=== PATIENT | male | born 1950 | race Caucasian/White ===

== ENCOUNTER 2017-04-17 15:15 | Emergency (ER) | payer OTHER ==
[~2017-04-17] VITALS: Ht 177.8 cm; Wt 87.0 kg
[~2017-04-17 15:15] MED LIST: CO Q100C9 PO; HYDR-3129 PO; IBUP400 PO; LORA1TAB PO; METH750T2 PO; METO25 PO; MIRT30TA PO; MULT-65 PO; ONDA4TAB7 PO; OYST500T77 PO; PRIL40CA PO; PROZ40CA PO; VITA10002 PO; ZOLP10TA3 PO; ZYRT10TA12 PO
[2017-04-17 15:17] VITALS: BP 143/93; PULSE 78; RESP 20; TEMP 100; O2SAT 96
--- NOTE | 2017-04-17 15:34 | PD ---
Physical Exam Date Seen by Provider: Apr 17, 2017 Time Seen by Provider: 15:31 Narrative 66-year-old male presents to the emergency Department with "gallbladder attack". Patient saw Dr. Henriquez yesterday, as is scheduled for surgery May 06. Patient states he is scheduled for endoscopy as well for esophageal stricture with Dr. Miller. Patient now having nausea, vomiting, fever, chills, and pain from the right upper quadrant radiating through to the back. Patient has had diarrhea but denies urinary symptoms. Patient states pain is 9-10 out of 10. Patient reports some dark tarry diarrhea last evening. Vital signs stable. Patient awaiting med bed placement. Data Data Last Documented VS Vital Signs Date Time Temp Pulse Resp B/P (MAP) Pulse Ox O2 Delivery O2 Flow Rate FiO2 04/17/17 15:17 100.0 78 20 143/93 (110) 96 Room Air [facility] Medical Record Reviewed: Yes Supervised Visit with HUGO: Yes Condition: Stable Dennys Beckham Apr 17, 2017 15:34
[2017-04-17] MEDS ORDERED: SODIUM CHLOR 0.9% 1000 ML INJ 1,000 ML IV SCH (16:28)
[2017-04-17] MEDS ORDERED: PIPERACIL-TAZO 3.375 GM PREMIX 50 ML IV ONE (16:30)
[2017-04-17] MEDS ORDERED: MORPHINE SULFATE 4 MG/ML INJ IV PUSH ONE ×2 (16:30→18:45)
[2017-04-17] MEDS ORDERED: ONDANSETRON HCL 4 MG/2 ML VIAL IVP ONE (16:30)
[2017-04-17] MEDS ORDERED: SODIUM CHLORIDE 0.9% FLUSH 10 ML FLUSH IV FLUSH PRN (16:30)
[2017-04-17] MEDS ORDERED: OMEP40CA2 PO (16:33)
[2017-04-17] MEDS ORDERED: ZOLP10TA3 PO (16:33)
[2017-04-17] MEDS ORDERED: HYDR-3580 PO (16:33)
[2017-04-17] MEDS ORDERED: MIRT30TA PO (16:33)
[2017-04-17] MEDS ORDERED: ONDA1TAB16 PO (16:33)
[2017-04-17] MEDS ORDERED: PROZ40CA PO (16:33)
[2017-04-17] MEDS ORDERED: LORA1TAB12 PO (16:33)
[2017-04-17] MEDS ORDERED: KETOROLAC TROMETHAMINE 30 MG/ML (IVP) VIAL IV PUSH ONE (16:45)
--- NOTE | 2017-04-17 16:54 | PD ---
Physical Exam Date Seen by Provider: Apr 17, 2017 Narrative Patient with known gallbladder disease presents with fever increased right upper quadrant pain. GENERAL: Patient is awake and alert and does not appear to be in any acute distress. SKIN: Skin is warm and dry with no rash or lesions. HEAD: Normocephalic/atraumatic. EYES: Pupils are equal. Extraocular movements are intact. ENT: Mucous membranes are moist. NECK: Full range of motion without pain. CARDIOVASCULAR: Regular rate and rhythm. RESPIRATORY: Nonlabored. ABDOMEN: Abdomen is soft with right upper quadrant tenderness. No guarding or rebound. MUSCULOSKELETAL: Atraumatic. NEUROLOGICAL: Nonfocal. PSYCHIATRIC: Appropriate mood and affect. Data Data Last Documented VS Vital Signs Date Time Temp Pulse Resp B/P (MAP) Pulse Ox O2 Delivery O2 Flow Rate FiO2 04/17/17 15:17 100.0 78 20 143/93 (110) 96 Room Air Orders Orders Complete Blood Count With Diff (04/17/17 16:28) Comprehensive Metabolic Panel (04/17/17 16:28) Lipase (04/17/17 16:28) Lactic Acid (04/17/17 16:28) Iv Access Insert/Monitor (04/17/17 16:28) Morphine Inj (Morphine Inj) (04/17/17 16:30) Ondansetron Inj (Zofran Inj) (04/17/17 16:30) Sodium Chlor 0.9% 1000 Ml Inj (Ns 1000 M (04/17/17 16:28) Sodium Chloride 0.9% Flush (Ns Flush) (04/17/17 16:30) Piperacil-Tazo 3.375 Gm Premix (Zosyn 3. (04/17/17 16:30) Blood Culture (04/17/17 16:34) Ct Abd/Pel W Iv Contrast(Rout) (04/17/17 ) Act Partial Throm Time (Ptt) (04/17/17 16:34) Prothrombin Time / Inr (Pt) (04/17/17 16:34) Ketorolac Inj (Toradol Inj) (04/17/17 16:45) MDM Supervised Visit with HUGO: Yes Narrative Course I, Dr. Ordonez, have reviewed the advance practice practitioner's documentation and am in agreement, met with the patient face to face, made the diagnosis, and the medical decision making was done by me. *My assessment and Findings: This is a 66-year-old man with known gallbladder disease who presents with increased right upper quadrant pain and fever. He will be evaluated for sepsis. Please see Fatou Tirado's note for the final diagnosis and disposition. Condition: Stable Mariaelena Ordonez MD Apr 17, 2017 16:54
--- NOTE | 2017-04-17 17:21 | PD ---
HPI Chief Complaint: Abdominal Pain Time Seen by Provider: 16:30 Travel History International Travel<30 days: No Contact w/Intl Traveler<30days: No Traveled to known affect area: No History of Present Illness HPI Patient is 66-year-old male presenting to emergency for evaluation of abdominal pain. Patient reports a history of gallbladder attacks, he saw Dr. Henriquez yesterday and is scheduled for cholecystectomy on May 06. Patient states the pain is in his right upper quadrant with radiation to the back as well as midepigastric region. He took [place] 2 hours prior to arrival, his pain has not completely alleviated however this is consistent with the pain relief he is had in the past. He is presenting today more so because he's had a fever, nausea, vomiting. Been home was 102.2. Patient's past medical history is significant for hypertension, gastric bypass, esophageal strictures, perforated colon with reversal of colostomy. PFSH Past Medical History Arthritis: Yes Asthma: Yes Atrial Fibrillation: Yes (HX OF with ablasion) Anxiety: Yes Depression: Yes Cancer: Yes (skin) Chest Pain: Yes Gastrointestinal Disorders: Yes (reflux hiatel hernia. GASTRIC STENT REMOVED 2011) GERD: Yes Genitourinary: Yes (hx of kidney stones bilaterly turp) Headaches: Yes Hepatitis: Yes Hiatal Hernia: Yes Hypertension: Yes Immune Disorder: No Inguinal Hernia: Yes Insomnia: Yes Neurologic: No Reproductive: No Pancreatitis: Yes Ulcer: Yes (GASTRIC) Tetanus Vaccination: > 5 Years Influenza Vaccination: Yes Past Surgical History Abdominal Surgery: Yes (gastric by pass hemorroidectomy) Body Medical Devices: morphine pump Cardiac Surgery: Yes (CARDIAC ABLATION- FOR A-FIB) Genitourinary Surgery: Yes (LITHOTRIPSY (3)/ TURP X2) Joint Replacement: Yes (right knee) Neurologic Surgery: Yes (LAMINECTOMY X5) Pacemaker: No Thoracic Surgery: No Other Surgery: Yes (KAVITHA FUNDOPICATION, TESTICLAR ) Social History Alcohol Use: Yes (THREE PER EVENING COCKTAILS) Tobacco Use: No (QUIT 2008 SMOKED FOR APPROX 30 YRS 2 PPD) Substance Use: No Allergies-Medications (Allergen,Severity, Reaction): Coded Allergies: No Known Allergies (Unverified , 04/17/17) Reported Meds & Prescriptions Reported Meds & Active Scripts Active Reported Ondansetron (Ondansetron HCl) 4 Mg Tab 4 Tab PO TID Mirtazapine 30 Mg Tab 30 Mg PO HS Zolpidem (Zolpidem Tartrate) 10 Mg Tab 10 Mg PO HS PRN Hydrocodone-Acetaminophen 7.5-325 mg Tab 1 Tab PO Q6H PRN Omeprazole 40 Mg Cap 40 Mg PO DAILY Lorazepam 1 Mg Tab 1 Mg PO Q8H PRN Prozac (Fluoxetine HCl) 40 Mg Cap 40 Mg PO DAILY Review of Systems Except as stated in HPI: all other systems reviewed are Neg General / Constitutional: Positive: Fever, Chills HENT: No: Headaches Cardiovascular: No: Chest Pain or Discomfort Respiratory: No: Shortness of Breath Gastrointestinal: Positive: Nausea, Vomiting, Abdominal Pain Genitourinary: No: Dysuria Musculoskeletal: No: Myalgias Neurologic: No: Weakness Physical Exam Narrative GENERAL: Then, well-developed, alert elderly gentleman. Resting comfortably, no acute distress. SKIN: Warm and dry. HEAD: Atraumatic. Normocephalic. EYES: Pupils equal and round. No scleral icterus. No injection or drainage. ENT: No nasal bleeding or discharge. Mucous membranes pink and moist. NECK: Trachea midline. No JVD. CARDIOVASCULAR: Regular rate and rhythm. RESPIRATORY: No accessory muscle use. Clear to auscultation. Breath sounds equal bilaterally. GASTROINTESTINAL: Abdomen soft, tender to palpation in right upper quadrant and epigastrium. Positive guarding, no rebound. Mildly distended. Hepatic and splenic margins not palpable. Positive bowel sounds. MUSCULOSKELETAL: Extremities without clubbing, cyanosis, or edema. No obvious deformities. NEUROLOGICAL: Awake and alert. No obvious cranial nerve deficits. Motor grossly within normal limits. Five out of 5 muscle strength in the arms and legs. Normal speech. PSYCHIATRIC: Appropriate mood and affect; insight and judgment normal. Data Data Last Documented VS Vital Signs Date Time Temp Pulse Resp B/P (MAP) Pulse Ox O2 Delivery O2 Flow Rate FiO2 04/17/17 18:51 16 04/17/17 15:17 100.0 78 143/93 (110) 96 Room Air Orders Orders Complete Blood Count With Diff (04/17/17 16:28) Comprehensive Metabolic Panel (04/17/17 16:28) Lipase (04/17/17 16:28) Lactic Acid (04/17/17 16:28) Iv Access Insert/Monitor (04/17/17 16:28) Morphine Inj (Morphine Inj) (04/17/17 16:30) Ondansetron Inj (Zofran Inj) (04/17/17 16:30) Sodium Chlor 0.9% 1000 Ml Inj (Ns 1000 M (04/17/17 16:28) Sodium Chloride 0.9% Flush (Ns Flush) (04/17/17 16:30) Piperacil-Tazo 3.375 Gm Premix (Zosyn 3. (04/17/17 16:30) Blood Culture (04/17/17 16:34) Act Partial Throm Time (Ptt) (04/17/17 16:34) Prothrombin Time / Inr (Pt) (04/17/17 16:34) Ketorolac Inj (Toradol Inj) (04/17/17 16:45) Morphine Inj (Morphine Inj) (04/17/17 18:45) Labs Laboratory Tests Test 04/17/17 16:50 White Blood Count 10.1 TH/MM3 Red Blood Count 4.38 MIL/MM3 Hemoglobin 14.4 GM/DL Hematocrit 43.4 % Mean Corpuscular Volume 99.1 FL Mean Corpuscular Hemoglobin 32.9 PG Mean Corpuscular Hemoglobin Concent 33.2 % Red Cell Distribution Width 14.3 % Platelet Count 148 TH/MM3 Mean Platelet Volume 8.3 FL Neutrophils (%) (Auto) 90.1 % Lymphocytes (%) (Auto) 3.4 % Monocytes (%) (Auto) 6.4 % Eosinophils (%) (Auto) 0.1 % Basophils (%) (Auto) 0.0 % Neutrophils # (Auto) 9.1 TH/MM3 Lymphocytes # (Auto) 0.3 TH/MM3 Monocytes # (Auto) 0.6 TH/MM3 Eosinophils # (Auto) 0.0 TH/MM3 Basophils # (Auto) 0.0 TH/MM3 CBC Comment DIFF FINAL Differential Comment Prothrombin Time 10.4 SEC Prothromb Time International Ratio 0.9 RATIO Activated Partial Thromboplast Time 24.3 SEC Blood Urea Nitrogen 12 MG/DL Creatinine 1.10 MG/DL Random Glucose 100 MG/DL Total Protein 7.3 GM/DL Albumin 3.7 GM/DL Calcium Level 9.0 MG/DL Alkaline Phosphatase 165 U/L Aspartate Amino Transf (AST/SGOT) 317 U/L Alanine Aminotransferase (ALT/SGPT) 159 U/L Total Bilirubin 1.7 MG/DL Sodium Level 139 MEQ/L Potassium Level 4.0 MEQ/L Chloride Level 103 MEQ/L Carbon Dioxide Level 28.7 MEQ/L Anion Gap 7 MEQ/L Estimat Glomerular Filtration Rate 67 ML/MIN Lactic Acid Level 1.7 mmol/L Lipase 102 U/L MDM Medical Decision Making Medical Screen Exam Complete: Yes Emergency Medical Condition: Yes Interpretation(s) Vital Signs Date Time Temp Pulse Resp B/P (MAP) Pulse Ox O2 Delivery O2 Flow Rate FiO2 04/17/17 16:52 17 04/17/17 16:35 16 04/17/17 15:17 100.0 78 20 143/93 (110) 96 Room Air Differential Diagnosis Acute cholecystitis versus sepsis versus metabolic abnormality versus abscess versus biliary colic versus other Narrative Course Patient is a 66-year-old male that presented to emergency department for evaluation of fever, right upper quadrant pain nausea and vomiting. Patient is due to have gallbladder surgery with Dr. Henriquez on May 06. Patient reports a max temp 102.2 at home, he is mildly febrile in the emergency department, he did take [place] 2 hours prior to arrival. Labs ordered and pending. CBC with no elevated white count, there is a slight left shift. Chemistry with elevated liver enzymes, elevated bilirubin. We have nothing to compare it to as far as what his baseline is. Lactic Acid is 1.7 Discussed findings with my attending physician. She recommended patient be discharged home on ciprofloxacin and Flagyl. Patient is to follow-up with Dr. Henriquez on Wednesday. He was given strict return precautions. Patient continue [place] as needed for pain. Patient verbalized understanding of instructions. Patient stable for discharge. Diagnosis Primary Impression: Cholecystitis Referrals: Caleb Henriquez MD 2 days Patient Instructions: Cholecystitis (ED), General Instructions Additional Instructions: Follow-up with Dr. Henriquez on Wednesday Return to emergency department immediately for any new or worsening symptoms Continue home medications as previously prescribed for pain Med/Other Pt SpecificInfo: Prescription(s) given Scripts Ondansetron Odt (Zofran Odt) 4 Mg Tab 4 MG SL Q6HR Y for Nausea/Vomiting, #12 TAB 0 Refills Prov: Fatou Tirado 04/17/17 Metronidazole (Flagyl) 500 Mg Tab 500 MG PO TID for Infection for 10 Days, TAB 0 Refills Prov: Fatou Tirado 04/17/17 Ciprofloxacin (Cipro) 500 Mg Tab 500 MG PO BID for Infection, #20 TAB 0 Refills Prov: Fatou Tirado 04/17/17 Disposition: 01 DISCHARGE HOME Condition: Stable Fatou Tirado Apr 17, 2017 17:20
[2017-04-17 17:51] LABS: AUTOMATED NEUTROPHIL # 9.1 TH/MM3 (1.8-7.7); EOSINOPHIL % 0.1 % (0.0-4.0); HEMATOCRIT 43.4 % (39.0-51.0); HEMO FLAGS DIFF FINAL; LYMPH % 3.4 % (9.0-44.0); LYMPHOCYTE # 0.3 TH/MM3 (1.0-4.8); MEAN CELL VOLUME 99.1 FL (80.0-100.0); MEAN CORPUSCULAR HEMOGLOBIN 32.9 PG (27.0-34.0); MEAN CORPUSCULAR HGB CONC 33.2 % (32.0-36.0); MONO % 6.4 % (0.0-8.0); NEUT % 90.1 % (16.0-70.0); PLATELET COUNT 148 TH/MM3 (150-450); RED BLOOD COUNT 4.38 MIL/MM3 (4.50-5.90); RED CELL DISTRIBUTION WIDTH 14.3 % (11.6-17.2); WHITE BLOOD COUNT 10.1 TH/MM3 (4.0-11.0)
[2017-04-17 18:04] LABS: ANION GAP 7 MEQ/L (5-15); APTT (PATIENT) 24.3 SEC (24.3-30.1); AST (GOT) 317 U/L (15-37); BICARBONATE 28.7 MEQ/L (21.0-32.0); BLOOD UREA NITROGEN 12 MG/DL (7-18); CHLORIDE 103 MEQ/L (98-107); GLOMERULAR FILTRATION RATE 67 ML/MIN (>89); INTERNATIONAL NORMALIZED RATIO 0.9 RATIO; PROTHROMBIN TIME - PATIENT 10.4 SEC (9.8-11.6); SODIUM (NA) 139 MEQ/L (136-145)
[2017-04-17 18:08] LABS: ALKALINE PHOSPHATASE 165 U/L (45-117); ALT (GPT) 159 U/L (12-78); TOTAL BILIRUBIN ADULT 1.7 MG/DL (0.2-1.0)
[2017-04-17 18:51] VITALS: RESP 16
[2017-04-17] MEDS ORDERED: CIPR-9 PO (19:08)
[2017-04-17] MEDS ORDERED: METR-1 PO (19:08)
[2017-04-17] MEDS ORDERED: ZOFR4TAB3 SL (19:08)
[2017-04-17] MEDS ORDERED: metroNIDAZOLE 500 MG TAB PO ONE (19:15)
[2017-04-17] MEDS ORDERED: CIPROFLOXACIN 500 MG TAB PO ONE (19:15)
== END 2017-04-17 20:14 | disposition home or self-care (01) ==
LOC: NEPD 15:15
DX: K81.9 Cholecystitis, unspecified (principal); R50.9 Fever, unspecified; R11.2 Nausea with vomiting, unspecified; B96.20 Unspecified Escherichia coli [E. coli] as the cause of diseases classified elsewhere; B95.4 Other streptococcus as the cause of diseases classified elsewhere; I10 Essential (primary) hypertension; Z98.84 Bariatric surgery status; Z87.39 Personal history of other diseases of the musculoskeletal system and connective tissue; Z87.09 Personal history of other diseases of the respiratory system; Z86.79 Personal history of other diseases of the circulatory system; Z86.59 Personal history of other mental and behavioral disorders; Z85.828 Personal history of other malignant neoplasm of skin; Z87.19 Personal history of other diseases of the digestive system; Z87.448 Personal history of other diseases of urinary system
CPT/HCPCS: 80053; 83605; 83690; 85025; 85610; 85730; 87040; 87077; 87186; 87205; 96365; 96375; 96376; 99285; J1885; J2270; J2405; J2543; J7030

== ENCOUNTER 2017-05-06 11:27 | Inpatient (IN) | payer OTHER, MEDICARE ==
[~2017-05-06] VITALS: Ht 177.8 cm; Wt 83.5 kg
[~2017-05-06 11:27] MED LIST changes: +CIPR-9 PO; -CO Q100C9 PO; -HYDR-3129 PO; +HYDR-3580 PO; -IBUP400 PO; -LORA1TAB PO; +LORA1TAB12 PO; -METH750T2 PO; -METO25 PO; +METR-1 PO; -MULT-65 PO; +OMEP40CA2 PO; +ONDA1TAB16 PO; -ONDA4TAB7 PO; -OYST500T77 PO; -PRIL40CA PO; -VITA10002 PO; +ZOFR4TAB3 SL; -ZYRT10TA12 PO
[2017-05-06] MEDS ORDERED: MIDAZOLAM HCL 2 MG/2 ML VIAL IV ONE (12:00)
[2017-05-06] MEDS ORDERED: GLYCOPYRROLATE 1 MG/5 ML SYRINGE IV PUSH ONE (12:00)
[2017-05-06] MEDS ORDERED: DEXAMETHASONE SOD PHOS 4 MG/ML VIAL IV ONE (12:00)
[2017-05-06] MEDS ORDERED: MORPHINE SULFATE 4 MG/ML INJ IV ONE (12:00)
[2017-05-06] MEDS ORDERED: PROPOFOL 200 MG/20 ML AMP IV ONE (12:00)
[2017-05-06] MEDS ORDERED: ONDANSETRON HCL 4 MG/2 ML VIAL IV PUSH ONE (12:00)
[2017-05-06] MEDS ORDERED: ROCURONIUM INJ 50 MG/5 ML VIAL IV ONE (12:00)
[2017-05-06] MEDS ORDERED: LIDOCAINE HCL 1% PF 5 ML AMPULE OTHER ONE (12:00)
[2017-05-06] MEDS ORDERED: NEOSTIGMINE 3 MG/3 ML SYR IV ONE (12:00)
[2017-05-06] MEDS ORDERED: BUPIVACAINE/EPINEPHRINE 0.25% 50 ML VIAL ONE (12:01)
[2017-05-06] MEDS ORDERED: CO Q100C9 (12:10)
[2017-05-06] MEDS ORDERED: CETI5TAB2 PO (12:10)
[2017-05-06] MEDS ORDERED: COEN1CAP PO (12:10)
[2017-05-06] MEDS ORDERED: CALC12502 PO (12:10)
[2017-05-06] MEDS ORDERED: METO25TA3 PO (12:10)
[2017-05-06] MEDS ORDERED: CYAN1TAB24 PO (12:10)
[2017-05-06] MEDS ORDERED: CETI5CHW CHEW (12:10)
[2017-05-06] MEDS ORDERED: MULTTAB67 PO (12:10)
[2017-05-06] MEDS ORDERED: SODIUM CHLOR 0.9% 250 ML INJ 250 ML ONE (12:17)
[2017-05-06] MEDS ORDERED: VANCOMYCIN HCL 1000 MG VIAL ONE (12:17)
[2017-05-06] MEDS ORDERED: ACETAMINOPHEN 1000 MG/100 ML 100 ML IV ONE (12:17)
[2017-05-06] MEDS ORDERED: ceFAZolin INJ 1,000 MG VIAL ONE (12:17)
--- NOTE | 2017-05-06 13:12 | EKG ---
Date Performed: 05/06/2017 Time Performed: 11:59:50 PTAGE: 66 years EKG: Sinus rhythm NORMAL ECG PREVIOUS TRACING : 12/26/2014 19.58 No significant change from previous tracing noted. DOCTOR: Baldo Larkin Interpretating Date/Time 05/06/2017 13:10:37
[2017-05-06] MEDS ORDERED: METOPROLOL TARTRATE 25 MG TAB PO PRN (13:15)
[2017-05-06] MEDS ORDERED: LACTATED RINGER'S 1000 ML IV PRN (13:15)
[2017-05-06] MEDS ORDERED: ceFAZolin 1,000 MG/NS 100 ML IV SCH ×2 (13:15)
[2017-05-06] MEDS ORDERED: POVIDONE IODINE 5% (ANTISEPSIS KIT) 4 APPLICATIONS EACH NARE PRN (13:15)
[2017-05-06] MEDS ORDERED: VANCOMYCIN HCL 1000 MG ON-CALL/NS 250 ML IV SCH ×2 (13:15)
[2017-05-06] MEDS ORDERED: INSULIN HUMAN REGULAR 1,000 UNITS/10 ML VIAL SQ PRN (13:15)
[2017-05-06] MEDS ORDERED: ACETAMINOPHEN 1000 MG/100 ML VIAL IV ONE (13:15)
[2017-05-06] MEDS ORDERED: SODIUM CHLORID 0.9% 500 ML IV PRN (13:15)
[2017-05-06] MEDS ORDERED: CHLORHEXIDINE GLUCONATE 2 % 1 PACK (2 CLOTHS) TOPICAL PRN (13:15)
--- NOTE | 2017-05-06 15:01 | HHI.PR ---
cc: Caleb Henriquez MD Immediate Post Op Note Procedure Date: May 06, 2017 Pre Op Diagnosis: Cholecystitis Post Op Diagnosis: Same Surgeon: Caleb Henriquez Systems Analyst Developer(s): Michael Wagner CFA Procedure: Lap melissa converted to open cholecystectomy with lysis of adhesions Findings: Dense adhesions Complications: None Specimen(s) removed: Gallbladder to pathology Anesthesia: General Drains: None IVF (1200 ml) Patient to: PACU Patient Condition: Good Date/Time of Procedure: SEE SURGICAL CARE RECORD Caleb Henriquez MD May 06, 2017 15:01
[2017-05-06] MEDS ORDERED: KETOROLAC TROMETHAMINE 30 MG/ML (IVP) VIAL ONE (15:04)
[2017-05-06] MEDS: D5-NS + KCL 20 MEQ INJ 1,000 ML IV SCH ×2 (15:04→23:35)
[2017-05-06] MEDS: HYDROmorphone HCL PF 2 MG/ML VIAL IV PUSH PRN ×3 (15:12→23:35)
[2017-05-06] MEDS ORDERED: ONDANSETRON ODT 4 MG TAB SL PRN (15:15)
[2017-05-06] MEDS ORDERED: Post-op Orders (for Pharmacy) MISC XX ONE (15:15)
[2017-05-06] MEDS ORDERED: NALOXONE HCL 0.4 MG/ML AMP IV PUSH PRN (15:15)
[2017-05-06] MEDS ORDERED: SODIUM CHLORIDE 0.9% FLUSH 5 ML FLUSH IVF PRN (15:15)
[2017-05-06] MEDS ORDERED: *diphenhydrAMINE HCL 50 MG/ML VIAL PERIprocedural Use ONLY ONE (15:22)
[2017-05-06] MEDS: LORazepam 1 MG TAB PO PRN (16:15)
[2017-05-06 17:04] VITALS: BP 114/66; PULSE 56; RESP 18; TEMP 95.9; O2SAT 96
[2017-05-06] MEDS ORDERED: KETOROLAC TROMETHAMINE 30 MG/ML (IVP) VIAL IV PUSH ONE (18:15)
[2017-05-06] MEDS: ONDANSETRON HCL 4 MG/2 ML VIAL IV PUSH PRN ×2 (19:41→23:35)
[2017-05-06] MEDS: SODIUM CHLORIDE 0.9% FLUSH 5 ML FLUSH IVF SCH (19:42)
[2017-05-06] MEDS: MIRTAZAPINE 15 MG TAB PO SCH (19:43)
[2017-05-06] MEDS: METOPROLOL TARTRATE 25 MG TAB PO SCH (19:44)
[2017-05-06 20:00] VITALS: BP 120/72; PULSE 97; RESP 17; TEMP 98; O2SAT 97
[2017-05-06 20:33] VITALS: O2SAT 96
--- NOTE | 2017-05-06 20:39 | MP ---
cc: BARBIE FLORES M.D. , CECY VALDEZ MD DATE OF SURGERY 05/06/17 PROCEDURE Laparoscopic cholecystectomy converted to open cholecystectomy with lysis of adhesions. PREOPERATIVE DIAGNOSIS Cholecystitis, recurrent. POSTOPERATIVE DIAGNOSIS Cholecystitis, recurrent. ANESTHESIA General endotracheal. SURGEON MD Martinez. ESTIMATED BLOOD LOSS 150 ml. FLUIDS 1200 ml crystalloid. COMPLICATIONS None. DRAINS None. SPECIMEN Gallbladder to pathology. PROCEDURE IN DETAIL The patient was taken to the operating room, was placed on the operating table in the supine position. After an adequate level of general endotracheal anesthesia was achieved the abdomen was prepped and draped in the usual fashion. Time-out was taken confirming the correct patient, site and procedure to be performed. A 5 mm trocar was placed in the right upper quadrant due to the patient's previous surgeries in an attempt to obtain intra-abdominal access. The trocar entered the abdominal cavity uneventfully but adequate window was not able to be established. A second 5 mm trocar was placed lateral to this and entered the abdominal cavity under direct vision uneventfully as well. Even with insufflation of the abdomen, an adequate window was not able to be created to visualize the gallbladder and perform the procedure. At this point the procedure was abandoned and a right subcostal incision was made. Dissection was carried down through the fascia and the rectus muscle was divided with electrocautery. The peritoneal cavity was entered uneventfully. The patient was noted to have a substantial amount of adhesions in the abdominal cavity. These were taken down off of the anterior abdominal wall with electrocautery. When this had been completed the gallbladder came into view. Further lysis of adhesions with sharp dissection and electrocautery was accomplished and when this was completed the Bookwalter retractor was inserted. The gallbladder was brought up on a Margarita clamp and dissection carried down toward the infundibulum of the gallbladder. The gallbladder was dissected in a dome down fashion off of the liver bed. The cystic artery was dissected off of the gallbladder with right-angle clamps. This was clamped, ligated with 2-0 silk suture and divided. The gallbladder was dissected down toward the common duct and as the patient had normal liver function tests and normal-appearing anatomy and nondilated common duct, cholangiogram was not obtained. The gallbladder was ligated with 2-0 silk suture, removed and passed off the table. The gallbladder fossa was reexamined and irrigation revealed no further bleeding. The retractors were removed, and the fascia closed in two layers with #1 PDS suture. The skin was closed in two layers with interrupted 3-0 Vicryl suture and 5-0 PDS in a running subcuticular fashion. The wound was dressed with Steri-Strips. The patient was extubated and taken back to the recovery room in stable condition. He tolerated the procedure well. MD INDIA Arthur/BANG /3:09 PM /8:27 PM
[2017-05-07] VITALS (7 sets, daily range): BP systolic 103–124; BP diastolic 65–79; PULSE 53–73; RESP 16–17; TEMP 96.1–99; O2SAT 96–100
[2017-05-07] MEDS: ZOLPIDEM TARTRATE 10 MG TAB PO PRN (00:55)
[2017-05-07] MEDS: HYDROmorphone HCL PF 2 MG/ML VIAL IV PUSH PRN ×5 (03:36→20:03)
[2017-05-07] MEDS: ONDANSETRON HCL 4 MG/2 ML VIAL IV PUSH PRN (03:40)
[2017-05-07] MEDS: LORazepam 1 MG TAB PO PRN ×3 (05:52→20:03)
[2017-05-07] MEDS: FLUoxetine HCL 20 MG CAP PO SCH (07:54)
[2017-05-07] MEDS: CALCIUM CARBONATE 1.25 GM (CA 500 MG) TAB PO SCH ×4 (07:54→20:48)
[2017-05-07] MEDS: METOPROLOL TARTRATE 25 MG TAB PO SCH ×2 (07:54→20:48)
[2017-05-07] MEDS: MULTIVITAMIN TAB PO SCH (07:57)
[2017-05-07] MEDS: PANTOPRAZOLE SOD 40 MG DELAYED RELEASE TAB PO SCH (08:00)
[2017-05-07] MEDS: D5-NS + KCL 20 MEQ INJ 1,000 ML IV SCH (08:03)
[2017-05-07] MEDS: CETIRIZINE HCL SYRUP 10 MG/10 ML UDC PO SCH (08:03)
[2017-05-07] MEDS: SODIUM CHLORIDE 0.9% FLUSH 5 ML FLUSH IVF SCH ×2 (08:03→20:49)
[2017-05-07] MEDS ORDERED: CETIRIZINE 5 MG PO SCH (09:00)
[2017-05-07] MEDS: ACETAMINOPHEN/HYDROcodone 325 MG/7.5 MG TAB PO PRN ×2 (10:02→17:57)
--- NOTE | 2017-05-07 12:54 | HHI.PR ---
Subjective Subjective Notes Resting in bed Tolerating clears Objective Vitals/I&O Vital Signs Date Time Temp Pulse Resp B/P (MAP) Pulse Ox O2 Delivery O2 Flow Rate FiO2 05/07/17 11:30 96.4 53 16 112/74 (87) 98 05/06/17 16:40 Room Air 05/06/17 15:05 2 Cardiovascular: Regular Lungs: Clear Abdomen: Other (RUQ incision with Steri strips in place---c/d/i; abdomen soft; minimally distended) Extremities: No edema A/P Assessment and Plan 66 year old male POD1 open cholecystectomy -Advance to full liquid diet -DC IVF once tolerating PO -Pain control -OOB and mobilize Attending Note - Dr. Henriquez Wound dry; steristrips intact Advance diet; discharge in AM Patient has meds at home; no scripts needed Follow up one week. The exam, history, and the medical decision-making described in the above note were completed with the assistance of the mid-level provider. I reviewed and agree with the findings presented. I attest that I had a [id number] encounter with the patient on the same day, and personally performed and documented my assessment and findings in the medical record. Tahmina Longoria May 07, 2017 12:54 Caleb Henriquez MD May 07, 2017 18:03
[2017-05-07] MEDS: KETOROLAC TROMETHAMINE 30 MG/ML (IVP) VIAL IVP PRN (16:06)
--- NOTE | 2017-05-07 17:57 | HHI.DS ---
Discharge Summary Admission Date May 06, 2017 at 16:59 Admitting Diagnosis (1) S/P cholecystectomy ICD Codes: Z90.49 - Acquired absence of other specified parts of digestive tract Procedures lap cholecystectomy converted to open cholecystectomy, lysis of adhesions. Brief History Admitted after conversion to open cholecystectomy for postop pain control. Hospital Course Did well POD #1 with adequate pain control; tolerating full liquids with no further bloating symptoms as preop. Pt Condition on Discharge: Good Discharge Disposition: Discharge Home Discharge Instructions DIET: Follow Instructions for: As Tolerated, No Restrictions Activities you can perform: Shower Only-No Bath Activities to Avoid: Strenuous Activity Caleb Henriquez MD May 07, 2017 17:57
[2017-05-07] MEDS: MIRTAZAPINE 15 MG TAB PO SCH (20:48)
[2017-05-08] VITALS: BP 124/85; PULSE 80; RESP 16; TEMP 97; O2SAT 99
[2017-05-08] MEDS: ZOLPIDEM TARTRATE 10 MG TAB PO PRN (00:11)
[2017-05-08] MEDS: ACETAMINOPHEN/HYDROcodone 325 MG/7.5 MG TAB PO PRN ×2 (00:11→06:23)
[2017-05-08] MEDS: HYDROmorphone HCL PF 2 MG/ML VIAL IV PUSH PRN (02:13)
[2017-05-08 04:00] VITALS: BP 115/78; PULSE 90; RESP 17; TEMP 99.2; O2SAT 97
[2017-05-08] MEDS: LORazepam 1 MG TAB PO PRN (06:23)
[2017-05-08 08:00] VITALS: BP 132/78; PULSE 65; RESP 16; TEMP 97.5; O2SAT 99
[2017-05-08] MEDS: CETIRIZINE HCL SYRUP 10 MG/10 ML UDC PO SCH (08:17)
[2017-05-08] MEDS: PANTOPRAZOLE SOD 40 MG DELAYED RELEASE TAB PO SCH (08:18)
[2017-05-08] MEDS: MULTIVITAMIN TAB PO SCH (08:18)
[2017-05-08] MEDS: CALCIUM CARBONATE 1.25 GM (CA 500 MG) TAB PO SCH (08:18)
[2017-05-08] MEDS: METOPROLOL TARTRATE 25 MG TAB PO SCH (08:18)
[2017-05-08] MEDS: FLUoxetine HCL 20 MG CAP PO SCH (08:18)
[2017-05-08] MEDS: KETOROLAC TROMETHAMINE 30 MG/ML (IVP) VIAL IVP PRN (08:19)
[2017-05-08] MEDS: SODIUM CHLORIDE 0.9% FLUSH 5 ML FLUSH IVF SCH (08:22)
== END 2017-05-08 10:14 | disposition home or self-care (01) | DRG 416 ==
LOC: HSDC 11:27 → N06A 16:59
PROVIDERS: ADMIT Surgery Trauma Surgery; ATTEND Surgery Trauma Surgery
PROC: 0FJ44ZZ Inspection of Gallbladder, Percutaneous Endoscopic Approach (ICD-10-PCS; 2017-05-06)
PROC: 0FT40ZZ Resection of Gallbladder, Open Approach (ICD-10-PCS; principal; 2017-05-06 13:01)
PROC: 0DNW0ZZ Release Peritoneum, Open Approach (ICD-10-PCS; 2017-05-06 13:01)
DX: K80.12 Calculus of gallbladder with acute and chronic cholecystitis without obstruction (principal); K21.9 Gastro-esophageal reflux disease without esophagitis; K66.0 Peritoneal adhesions (postprocedural) (postinfection); Z53.31 Laparoscopic surgical procedure converted to open procedure; Z87.891 Personal history of nicotine dependence
CPT/HCPCS: 88304; 93005; 94150; J0131; J0690; J1100; J1170; J1200; J1885; J2250; J2270; J2405; J2710; J3010; J3370; J3480; J7050

== ENCOUNTER 2017-09-24 10:28 | Emergency (ER) | payer MEDICARE, OTHER ==
[~2017-09-24] VITALS: Ht 167.6 cm; Wt 85.0 kg
[~2017-09-24 10:28] MED LIST changes: +CALC12502 PO; +CETI5CHW CHEW; +CETI5TAB2 PO; -CIPR-9 PO; +CO Q100C9; +COEN1CAP PO; +CYAN1TAB24 PO; +METO25TA3 PO; -METR-1 PO; +MULTTAB67 PO; -ONDA1TAB16 PO
[2017-09-24 10:34] VITALS: BP 115/75; PULSE 79; RESP 16; TEMP 98.5; O2SAT 94
--- NOTE | 2017-09-24 10:57 | PD ---
HPI Chief Complaint: Fall Time Seen by Provider: 10:37 Travel History International Travel<30 days: No Contact w/Intl Traveler<30days: No Traveled to known affect area: No History of Present Illness HPI This is a 67-year-old male who presents for evaluation of injuries after a fall. 2 nights ago, patient tripped on his way to the bathroom and fell face first on the ground. No loss of consciousness. He has mild nasal pain. No nosebleed. He has developed bruising under both of his eyes and on his forehead. He states that he has had mild headache. He is not sure if he has a concussion. This morning, when he was bending forward to do some gardening and then stood up quickly, he was mildly lightheaded. He has not otherwise been lightheaded. This was not a syncopal episode. No chest pain or shortness of breath. No focal weakness, numbness, tingling, saddle paresthesias, bowel or bladder dysfunction. He also complains of right-sided rib pain. Aggravated by twisting, coughing. No difficulty breathing. Symptoms are mild in severity. Sore in nature. Onset with trauma. Prior treatment includes chronic home pain medication. His pain is actually very well controlled with his home pain medication. He states that he has been otherwise well recently without fever, chills, cough, congestion. PFSH Past Medical History Hx Anticoagulant Therapy: No Arthritis: Yes Asthma: Yes Atrial Fibrillation: Yes (HX OF with ABLATION) Anxiety: Yes Depression: Yes Heart Rhythm Problems: Yes (HX AFIB WITH ABLATION ) Cancer: Yes (skin) Cardiovascular Problems: Yes High Cholesterol: No Chest Pain: Yes Congestive Heart Failure: No COPD: No Cerebrovascular Accident: No Diabetes: No Diminished Hearing: No Endocrine: No Gastrointestinal Disorders: Yes ( GASTRIC STENT REMOVED 2011) GERD: Yes Genitourinary: Yes Headaches: Yes Hepatitis: Yes Hiatal Hernia: Yes (REPAIRED 2010) Hypertension: Yes Immune Disorder: No Inguinal Hernia: Yes Insomnia: Yes Kidney Stones: Yes (X3) Musculoskeletal: Yes (DDD) Neurologic: No Psychiatric: Yes (anxiety and depression) Reproductive: No Respiratory: Yes (HX OF PE'S) Migraines: No Pancreatitis: Yes Renal Failure: No Seizures: No Sleep Apnea: No Thyroid Disease: No Ulcer: Yes (GASTRIC) Past Surgical History Abdominal Surgery: Yes (gastric bypass hemorroidectomy) AICD: No Body Medical Devices: morphine pump Cardiac Surgery: Yes (CARDIAC ABLATION- FOR A-FIB) Ear Surgery: No Endocrine Surgery: No Eye Surgery: No Genitourinary Surgery: Yes (LITHOTRIPSY (3)/ TURP X2) Gynecologic Surgery: No Joint Replacement: Yes (right knee) Neurologic Surgery: Yes (LAMINECTOMY X5) Pacemaker: No Thoracic Surgery: No Other Surgery: Yes (KAVITHA FUNDOPLICATION, ) Social History Alcohol Use: Yes (THREE PER EVENING COCKTAILS) Tobacco Use: No (QUIT 2008 SMOKED FOR APPROX 30 YRS 2 PPD) Substance Use: No Allergies-Medications (Allergen,Severity, Reaction): Coded Allergies: No Known Allergies (Unverified Adverse Reaction, Unknown, 09/24/17) Reported Meds & Prescriptions Reported Meds & Active Scripts Active Lidoderm (Lidocaine) 5 % Adh..patch 1 Patch EXTERNAL DAILY PRN Zofran Odt (Ondansetron Odt) 4 Mg Tab 4 Mg SL Q6HR PRN Reported B12 (Cyanocobalamin) 1,000 Mcg Tab 1 PO DAILY Co Q 10 (Coenzyme Q10 (Ubidecarenone)) 100 Mg-5 Unit Cap Calcium Carbonate 500 Mg Calcium (1250 Mg) Tab 4,000 Mg PO DAILY 1,250 mg calcium carbonate (500 mg elemental calcium) Multiple Vitamin 1 Tab 2 Tab PO DAILY Cetirizine (Cetirizine HCl) 5 Mg Tab 5 Mg PO DAILY Metoprolol Tartrate 25 Mg Tab 25 Mg PO BID Mirtazapine 30 Mg Tab 30 Mg PO HS Zolpidem (Zolpidem Tartrate) 10 Mg Tab 10 Mg PO HS PRN Hydrocodone-Acetaminophen 7.5-325 mg Tab 1 Tab PO Q6H PRN Omeprazole 40 Mg Cap 40 Mg PO DAILY Lorazepam 1 Mg Tab 1 Mg PO Q8H PRN Prozac (Fluoxetine HCl) 40 Mg Cap 40 Mg PO DAILY Review of Systems Except as stated in HPI: all other systems reviewed are Neg Physical Exam Narrative GENERAL: Alert, well nourished, well appearing patient resting on the bed in no acute distress. Vital Signs reviewed SKIN: Focused skin assessment warm/dry. HEAD: Ecchymoses under both eyes, across bridge of nose and on forehead. Normocephalic. EYES: Pupils equal and round. No scleral icterus. No injection or drainage. Extraocular movement intact without pain or grimace ENT: No nasal bleeding or discharge. Mucous membranes pink and moist. no septal hematoma NECK: Trachea midline. No JVD. Spontaneous, painless full range of motion with no meningismus. No midline tenderness to palpation along cervical spine CARDIOVASCULAR: Regular rate and rhythm. No murmur appreciated. Extremities warm and well perfused with bounding peripheral pulses RESPIRATORY: No accessory muscle use. Clear to auscultation. Breath sounds equal bilaterally. Breathing easily and speaking in full sentences Chest wall: No deformity or crepitus. Tender on right lateral lower ribs. GASTROINTESTINAL: Abdomen soft, mildly tender in right upper abdomen, nondistended. Normal bowel sounds. No rigid, rebound, guarding MUSCULOSKELETAL: No obvious deformities. No clubbing. No cyanosis. No edema. Compartments are soft NEUROLOGICAL: Awake and alert. No obvious cranial nerve deficits. Motor grossly within normal limits. Normal speech. Sensation intact. Normal gait Data Data Last Documented VS Vital Signs Date Time Temp Pulse Resp B/P (MAP) Pulse Ox O2 Delivery O2 Flow Rate FiO2 09/24/17 10:34 98.5 79 16 115/75 (88) 94 Orders Orders Complete Blood Count With Diff (09/24/17 10:49) Prothrombin Time / Inr (Pt) (09/24/17 10:49) Act Partial Throm Time (Ptt) (09/24/17 10:49) Ct Brain W/O Iv Contrast(Rout) (09/24/17 10:49) Ct Abd/Pel W Iv Contrast(Rout) (09/24/17 10:49) Ct Facial Bones W/O Iv Cont (09/24/17 10:49) Iv Access Insert/Monitor (09/24/17 10:49) Ecg Monitoring (09/24/17 10:49) Oxygen Administration (09/24/17 10:49) Sodium Chloride 0.9% Flush (Ns Flush) (09/24/17 11:00) Comprehensive Metabolic Panel (09/24/17 10:49) Lipase (09/24/17 10:49) Ribs, Uni (W/Exp Cxr-Min 3vw) (09/24/17 10:49) Iohexol 350 Inj (Omnipaque 350 Inj) (09/24/17 12:54) Resp Incentive Spirometry (09/24/17 ) Labs Laboratory Tests Test 09/24/17 11:30 White Blood Count 9.9 TH/MM3 Red Blood Count 4.17 MIL/MM3 Hemoglobin 13.8 GM/DL Hematocrit 40.1 % Mean Corpuscular Volume 96.2 FL Mean Corpuscular Hemoglobin 33.0 PG Mean Corpuscular Hemoglobin Concent 34.3 % Red Cell Distribution Width 14.4 % Platelet Count 162 TH/MM3 Mean Platelet Volume 8.4 FL Neutrophils (%) (Auto) 79.1 % Lymphocytes (%) (Auto) 10.1 % Monocytes (%) (Auto) 8.4 % Eosinophils (%) (Auto) 0.6 % Basophils (%) (Auto) 1.8 % Neutrophils # (Auto) 7.8 TH/MM3 Lymphocytes # (Auto) 1.0 TH/MM3 Monocytes # (Auto) 0.8 TH/MM3 Eosinophils # (Auto) 0.1 TH/MM3 Basophils # (Auto) 0.2 TH/MM3 CBC Comment DIFF FINAL Differential Comment Prothrombin Time 9.3 SEC Prothromb Time International Ratio 0.9 RATIO Activated Partial Thromboplast Time 22.9 SEC Blood Urea Nitrogen 17 MG/DL Creatinine 1.40 MG/DL Random Glucose 116 MG/DL Total Protein 7.4 GM/DL Albumin 3.5 GM/DL Calcium Level 9.0 MG/DL Alkaline Phosphatase 78 U/L Aspartate Amino Transf (AST/SGOT) 88 U/L Alanine Aminotransferase (ALT/SGPT) 47 U/L Total Bilirubin 1.5 MG/DL Sodium Level 138 MEQ/L Potassium Level 3.7 MEQ/L Chloride Level 101 MEQ/L Carbon Dioxide Level 23.5 MEQ/L Anion Gap 14 MEQ/L Estimat Glomerular Filtration Rate 50 ML/MIN Lipase 104 U/L [facility] Medical Decision Making Medical Screen Exam Complete: Yes Emergency Medical Condition: Yes Medical Record Reviewed: Yes Interpretation(s) Laboratory Tests Test 09/24/17 11:30 White Blood Count 9.9 TH/MM3 Red Blood Count 4.17 MIL/MM3 Hemoglobin 13.8 GM/DL Hematocrit 40.1 % Mean Corpuscular Volume 96.2 FL Mean Corpuscular Hemoglobin 33.0 PG Mean Corpuscular Hemoglobin Concent 34.3 % Red Cell Distribution Width 14.4 % Platelet Count 162 TH/MM3 Mean Platelet Volume 8.4 FL Neutrophils (%) (Auto) 79.1 % Lymphocytes (%) (Auto) 10.1 % Monocytes (%) (Auto) 8.4 % Eosinophils (%) (Auto) 0.6 % Basophils (%) (Auto) 1.8 % Neutrophils # (Auto) 7.8 TH/MM3 Lymphocytes # (Auto) 1.0 TH/MM3 Monocytes # (Auto) 0.8 TH/MM3 Eosinophils # (Auto) 0.1 TH/MM3 Basophils # (Auto) 0.2 TH/MM3 CBC Comment DIFF FINAL Differential Comment Prothrombin Time 9.3 SEC Prothromb Time International Ratio 0.9 RATIO Activated Partial Thromboplast Time 22.9 SEC Blood Urea Nitrogen 17 MG/DL Creatinine 1.40 MG/DL Random Glucose 116 MG/DL Total Protein 7.4 GM/DL Albumin 3.5 GM/DL Calcium Level 9.0 MG/DL Alkaline Phosphatase 78 U/L Aspartate Amino Transf (AST/SGOT) 88 U/L Alanine Aminotransferase (ALT/SGPT) 47 U/L Total Bilirubin 1.5 MG/DL Sodium Level 138 MEQ/L Potassium Level 3.7 MEQ/L Chloride Level 101 MEQ/L Carbon Dioxide Level 23.5 MEQ/L Anion Gap 14 MEQ/L Estimat Glomerular Filtration Rate 50 ML/MIN Lipase 104 U/L Last 24 hours Impressions Ribs X-Ray [id number] Signed Impressions: Service Date/Time: Sunday, September 24, 2017 10:56 - CONCLUSION: Right sided rib fractures. Vikas Barrientos MD Maxillofacial CT [id number] Signed Impressions: Service Date/Time: Sunday, September 24, 2017 12:18 - CONCLUSION: 1. No acute bony abnormality. Mild soft tissue swelling around the anterior face. Max Mae MD Head CT [id number] Signed Impressions: Service Date/Time: Sunday, September 24, 2017 12:18 - CONCLUSION: 1. No acute intracranial abnormalities. Max Mae MD Abdomen/Pelvis CT [id number] Signed Impressions: Service Date/Time: Sunday, September 24, 2017 12:24 - CONCLUSION: 1. Negative for acute traumatic injury within the abdomen and pelvis. 2. Mild right basal airspace disease. Diffuse fatty liver. Nonobstructing right renal calculus. Small hiatal hernia. Stable chronic loculated fluid in the anterior abdominal wall probably related to previous laparotomy. Max Mae MD Differential Diagnosis Subdural hematoma, facial fracture, contusion, concussion, closed head injury, facial fracture, rib fractures, liver laceration, atelectasis Narrative Course IV access was established. Labs, imaging were performed. Patient's pain is actually very well controlled in the emergency department. He has taken his chronic home pain medication. He was given a dose of Toradol. He has had no difficulty breathing. He has normal oxygen saturations on room air. He was trained by respiratory therapy to use the incentive spirometer. He did very well with this and had excellent technique according to the respiratory therapist. I reviewed the results of the workup with him. Patient feels comfortable being discharged home with continued current home pain medication, incentive spirometry use and lidocaine patches. He understands the importance of close follow-up. He actually has an appointment at 3 PM today with his painter assistant. Patient understands the importance of close outpatient follow-up. He understands he may require further testing and treatment as an outpatient. He understands strict return indications. He is comfortable with this plan and eager to go home. Diagnosis Primary Impression: Multiple fractures of ribs, right side, initial encounter for closed fracture Additional Impression: Head injury Qualified Codes: S09.90XA - Unspecified injury of head, initial encounter Referrals: Pain Management today Primary Care Physician 3 days Patient Instructions: General Instructions, Head Injury (DC), How to Use an Incentive Spirometer (DC), Rib Fracture (ED) Additional Instructions: Continue current home pain medication. Use incentive spirometer 10 times an hour every hour while awake. Use lidocaine patches as directed. Follow-up with painter assistant today. Follow-up with primary physician on Wednesday. Return with worsening symptoms. Med/Other Pt SpecificInfo: Prescription(s) given Scripts Lidocaine (Lidoderm) 5 % Adh..patch 1 PATCH EXTERNAL DAILY Y for PAIN GREATER THAN 6, #12 Prov: Ca Means MD 09/24/17 Disposition: 01 DISCHARGE HOME Condition: Stable Ca Means MD Sep 24, 2017 10:57
[2017-09-24] MEDS ORDERED: SODIUM CHLORIDE 0.9% FLUSH 10 ML FLUSH IVF PRN (11:00)
--- NOTE | 2017-09-24 11:24 | RADRPT ---
EXAM DATE/TIME: 09/24/2017 10:56 [facility] COMPARISON: No previous studies available for comparison. INDICATIONS : Right lateral rib pain post fall 2 days ago. MEDICAL HISTORY : Hypertension. Ulcers. Gastroesophageal reflux disease. Renal calculi. PE. A-fib. Hepatitis. Asthm a. SURGICAL HISTORY : Total knee replacement, right. Cholecystectomy. Gastric bypass. Laminectomy. Cardiac ablation. Hiatia l hernia repair. Lithotripsy.TURP. ENCOUNTER: Initial ACUITY: 2 days PAIN SCORE: 8/10 LOCATION: Right lateral ribs FINDINGS: Right sixth and seventh, eighth and ninth anterior rib fractures are noted, not significantly displac ed. No other fractures are seen. CONCLUSION: Right sided rib fractures. Vikas Barrientos MD on September 24, 2017 at 11:21 Board Certified Radiologist. This report was verified electronically.
[2017-09-24 11:46] LABS: AUTOMATED NEUTROPHIL # 7.8 TH/MM3 (1.8-7.7); BASOPHIL # 0.2 TH/MM3 (0-0.2); BASOPHIL % 1.8 % (0.0-2.0); EOSINOPHIL # 0.1 TH/MM3 (0-0.4); EOSINOPHIL % 0.6 % (0.0-4.0); HEMATOCRIT 40.1 % (39.0-51.0); HEMOGLOBIN 13.8 GM/DL (13.0-17.0); LYMPH % 10.1 % (9.0-44.0); MEAN CELL VOLUME 96.2 FL (80.0-100.0); MEAN CORPUSCULAR HGB CONC 34.3 % (32.0-36.0); MEAN PLATELET VOLUME 8.4 FL (7.0-11.0); MONO % 8.4 % (0.0-8.0); MONOCYTE # 0.8 TH/MM3 (0-0.9); NEUT % 79.1 % (16.0-70.0); PLATELET COUNT 162 TH/MM3 (150-450); RED BLOOD COUNT 4.17 MIL/MM3 (4.50-5.90); RED CELL DISTRIBUTION WIDTH 14.4 % (11.6-17.2); WHITE BLOOD COUNT 9.9 TH/MM3 (4.0-11.0)
[2017-09-24 11:51] LABS: CHLORIDE 101 MEQ/L (98-107); SODIUM (NA) 138 MEQ/L (136-145)
[2017-09-24 11:55] LABS: ALBUMIN 3.5 GM/DL (3.4-5.0); BICARBONATE 23.5 MEQ/L (21.0-32.0); BLOOD UREA NITROGEN 17 MG/DL (7-18); GLUCOSE,RANDOM 116 MG/DL (74-106)
[2017-09-24 11:58] LABS: ALT (GPT) 47 U/L (12-78); AST (GOT) 88 U/L (15-37); GLOMERULAR FILTRATION RATE 50 ML/MIN (>89)
[2017-09-24 11:59] LABS: INTERNATIONAL NORMALIZED RATIO 0.9 RATIO; PROTHROMBIN TIME - PATIENT 9.3 SEC (9.8-11.6)
[2017-09-24 12:00] LABS: TOTAL BILIRUBIN ADULT 1.5 MG/DL (0.2-1.0); TOTAL PROTEIN 7.4 GM/DL (6.4-8.2)
[2017-09-24 12:01] LABS: ALKALINE PHOSPHATASE 78 U/L (45-117)
[2017-09-24] MEDS ORDERED: IOHEXOL 350 MG/ML 10 ML VIAL (for RAD DIAG) IVCONTRAST ONE (12:54)
--- NOTE | 2017-09-24 12:58 | RADRPT ---
EXAM DATE/TIME: 09/24/2017 12:18 [facility] COMPARISON: No previous studies available for comparison. INDICATIONS : Trauma. Fell 2 days ago. Right forehead pain. RADIATION DOSE: 65.63 CTDIvol (mGy) MEDICAL HISTORY : Pancreatitis. Cardiovascular disease Ulcers.Hypertension. Pulmonary embolism. Asthma. SURGICAL HISTORY : Cholecystectomy. Gastric bypass. Hiatal hernia. TURP. Walter Fundoplication. ENCOUNTER: Initial ACUITY: 2 days PAIN SCALE: 7/10 LOCATION: Right cranial TECHNIQUE: Multiple contiguous axial images were obtained of the head. Using automated exposure control and adj ustment of the mA and/or kV according to patient size, radiation dose was kept as low as reasonably a chievable to obtain optimal diagnostic quality images. DICOM format image data is available electro nically for review and comparison. FINDINGS: CEREBRUM: The ventricles are normal for age. No evidence of midline shift, mass lesion, hemorrhage or acute in farction. No extra-axial fluid collections are seen. POSTERIOR FOSSA: The cerebellum and brainstem are intact. The 4th ventricle is midline. The cerebellopontine angle i s unremarkable. EXTRACRANIAL: The visualized portion of the orbits is intact. SKULL: The calvaria is intact. No evidence of skull fracture. CONCLUSION: 1. No acute intracranial abnormalities. Max Mae MD on September 24, 2017 at 12:55 Board Certified Radiologist. This report was verified electronically.
--- NOTE | 2017-09-24 13:01 | RADRPT ---
EXAM DATE/TIME: 09/24/2017 12:18 [facility] COMPARISON: No previous studies available for comparison. INDICATIONS : Trauma. Fell 2 days ago. Bruising around both eyes. RADIATION DOSE: 34.93 CTDIvol (mGy) MEDICAL HISTORY : Pancreatitis. Ulcers. Cardiovascular disease. Hypertension. Asthma. Pulmonary embolism. SURGICAL HISTORY : Cholecystectomy. Gastric bypass. Hiatal hernia repair. TURP. Walter fundoplication. ENCOUNTER: Initial ACUITY: 2 days PAIN SCORE: 4/10 LOCATION: Bilateral facial TECHNIQUE: Volumetric scanning of the facial bones was performed. Using automated exposure control and adjustme nt of the mA and/or kV according to patient size, radiation dose was kept as low as reasonably achiev able to obtain optimal diagnostic quality images. DICOM format image data is available electronicall y for review and comparison. FINDINGS: ORBITS: The orbital and infraorbital osseous structures are intact. The retroconal structures have a normal configuration. No radiopaque foreign bodies are seen. NASAL BONE: The nasal bone and maxillary spine are intact ZYGOMATIC ARCHES: Symmetric without evidence of fracture. SINUSES: The maxillary, ethmoid and frontal sinuses are intact. No air-fluid levels seen. NASAL CAVITY: The nasal septum is intact and midline. The lacrimal ducts are intact. SOFT TISSUES: No radiopaque foreign bodies seen. No soft-tissue swelling is seen. INTRACRANIAL: No intracranial air seen. CRIBIFORM PLATE: Grossly intact. CONCLUSION: 1. No acute bony abnormality. Mild soft tissue swelling around the anterior face. Max Mae MD on September 24, 2017 at 12:56 Board Certified Radiologist. This report was verified electronically.
--- NOTE | 2017-09-24 13:06 | RADRPT ---
EXAM DATE/TIME: 09/24/2017 12:24 [facility] COMPARISON: CT ABDOMEN & PELVIS W CONTRAST, December 26, 2014, 23:41. INDICATIONS : Trauma. Fell 2 days ago. Right upper quadrant pain. IV CONTRAST: 85 cc Omnipaque 350 (iohexol) IV ORAL CONTRAST: No oral contrast ingested. RADIATION DOSE: 14.48 CTDIvol (mGy) MEDICAL HISTORY : Pancreatitis. Ulcers. Cardiovascular diseaseHypertension. Asthma. Pulmonary embolism. SURGICAL HISTORY : Cholecystectomy. Gastric bypass. TURP. Hiatal hernia repair. Walter fundoplication. ENCOUNTER: Initial ACUITY: 2 days PAIN SCALE: 8/10 LOCATION: Right upper quadrant TECHNIQUE: Volumetric scanning of the abdomen and pelvis was performed. Using automated exposure control and ad justment of the mA and/or kV according to patient size, radiation dose was kept as low as reasonably achievable to obtain optimal diagnostic quality images. DICOM format image data is available electro nically for review and comparison. FINDINGS: There is mild right basal airspace disease. No pleural pericardial effusion. Small hiatal hernia. Diffuse fatty infiltration of the liver. Spleen, adrenals, pancreas demonstrate no acute findings. Non-obstructing calculus lower pole right kidney measuring about 4 mm in diameter. Bilateral renal cysts similar in appearance to December 2014. No free fluid. No bowel obstruction. Trace chronic loculated fluid around the umbilicus stable since December 2014. No pelvic masses or free fluid. No acute bony abnormalities. Postoperative changes in the lower lumba r spine and upper pelvis. These are stable. CONCLUSION: 1. Negative for acute traumatic injury within the abdomen and pelvis. 2. Mild right basal airspace disease. Diffuse fatty liver. Nonobstructing right renal calculus. Small hiatal hernia. Stable chronic loculated fluid in the anterior abdominal wall probably related to pre vious laparotomy. Max Mae MD on September 24, 2017 at 12:59 Board Certified Radiologist. This report was verified electronically.
[2017-09-24] MEDS ORDERED: LIDO1ADH4 EXTERNAL (13:11)
[2017-09-24] MEDS ORDERED: KETOROLAC TROMETHAMINE 30 MG/ML (IVP) VIAL IV PUSH ONE (13:30)
[2017-09-24 13:45] VITALS: BP 130/85
== END 2017-09-24 13:51 | disposition home or self-care (01) ==
LOC: PHED 10:28
DX: S22.41XA Multiple fractures of ribs, right side, initial encounter for closed fracture (principal); S00.83XA Contusion of other part of head, initial encounter; I10 Essential (primary) hypertension; K21.9 Gastro-esophageal reflux disease without esophagitis; W01.0XXA Fall on same level from slipping, tripping and stumbling without subsequent striking against object, initial encounter; Z87.891 Personal history of nicotine dependence
CPT/HCPCS: 70450; 70486; 71101; 74177; 80053; 83690; 85025; 85610; 85730; 94150; 96374; 99285; J1885; Q9967

== ENCOUNTER 2017-11-07 11:39 | Emergency (ER) | payer OTHER ==
[~2017-11-07] VITALS: Ht 177.8 cm; Wt 78.0 kg
[~2017-11-07 11:39] MED LIST changes: -CETI5CHW CHEW; -COEN1CAP PO; +LIDO1ADH4 EXTERNAL
[2017-11-07 11:51] VITALS: BP 113/78; PULSE 64; RESP 20; TEMP 98.1; O2SAT 99
--- NOTE | 2017-11-07 12:24 | PD ---
HPI Chief Complaint: Chest Pain Time Seen by Provider: 11:51 Travel History International Travel<30 days: No Contact w/Intl Traveler<30days: No Traveled to known affect area: No History of Present Illness HPI This patient complains of chest pain. Location is left upper chest. Duration is 2 weeks. Severity is moderate. It is worse when he touches or twists his torso. There was no injury. No shortness of breath or fever. No productive cough. Patient was here 6 weeks ago and had multiple right-sided rib fractures but those have been doing better. PFSH Past Medical History Hx Anticoagulant Therapy: No Arthritis: Yes Asthma: Yes (hx) Atrial Fibrillation: Yes (HX OF with ABLATION) Anxiety: Yes Depression: Yes Heart Rhythm Problems: Yes (HX AFIB WITH ABLATION ) Cancer: Yes (skin) Cardiovascular Problems: Yes (ablation for a fib) High Cholesterol: No Chest Pain: Yes Congestive Heart Failure: No COPD: No Cerebrovascular Accident: No Diabetes: No Diminished Hearing: No Endocrine: No Gastrointestinal Disorders: Yes ( GASTRIC STENT REMOVED 2011) GERD: Yes Genitourinary: Yes Headaches: Yes Hepatitis: Yes Hiatal Hernia: Yes (REPAIRED 2010) Hypertension: Yes Immune Disorder: No Inguinal Hernia: Yes Implanted Vascular Access Dvce: Yes (pain pump removed 09/24/2014) Insomnia: Yes Kidney Stones: Yes (X3) Musculoskeletal: Yes (DDD) Neurologic: No Psychiatric: Yes (anxiety and depression) Reproductive: No Respiratory: Yes (HX OF PE'S) Migraines: No Pancreatitis: Yes Renal Failure: No Seizures: No Sleep Apnea: No Thyroid Disease: No Ulcer: Yes (GASTRIC) Influenza Vaccination: Yes Past Surgical History Abdominal Surgery: Yes (gastric bypass hemorroidectomy) AICD: No Body Medical Devices: morphine pump Cardiac Surgery: Yes (CARDIAC ABLATION- FOR A-FIB) Ear Surgery: No Endocrine Surgery: No Eye Surgery: No Genitourinary Surgery: Yes (LITHOTRIPSY (3)/ TURP X2) Gynecologic Surgery: No Joint Replacement: Yes (right knee) Neurologic Surgery: Yes (LAMINECTOMY X5) Pacemaker: No Thoracic Surgery: No Other Surgery: Yes (KAVITHA FUNDOPLICATION, ) Social History Alcohol Use: Yes (THREE PER EVENING COCKTAILS) Tobacco Use: No (QUIT 2007 SMOKED FOR APPROX 30 YRS 2 PPD) Substance Use: No Allergies-Medications (Allergen,Severity, Reaction): Coded Allergies: No Known Allergies (Unverified Adverse Reaction, Unknown, 11/07/17) Reported Meds & Prescriptions Reported Meds & Active Scripts Active Lidoderm (Lidocaine) 5 % Adh..patch 1 Patch EXTERNAL DAILY PRN Zofran Odt (Ondansetron Odt) 4 Mg Tab 4 Mg SL Q6HR PRN Reported B12 (Cyanocobalamin) 1,000 Mcg Tab 1 PO DAILY Co Q 10 (Coenzyme Q10 (Ubidecarenone)) 100 Mg-5 Unit Cap Calcium Carbonate 500 Mg Calcium (1250 Mg) Tab 4,000 Mg PO DAILY 1,250 mg calcium carbonate (500 mg elemental calcium) Multiple Vitamin 1 Tab 2 Tab PO DAILY Cetirizine (Cetirizine HCl) 5 Mg Tab 5 Mg PO DAILY Metoprolol Tartrate 25 Mg Tab 25 Mg PO BID Mirtazapine 30 Mg Tab 30 Mg PO HS Hydrocodone-Acetaminophen 7.5-325 mg Tab 1 Tab PO Q6H PRN Omeprazole 40 Mg Cap 40 Mg PO DAILY Prozac (Fluoxetine HCl) 40 Mg Cap 40 Mg PO DAILY Review of Systems General / Constitutional: No: Fever Eyes: No: Visual changes HENT: No: Headaches Cardiovascular: Positive: Chest Pain or Discomfort Respiratory: No: Shortness of Breath Gastrointestinal: No: Abdominal Pain Genitourinary: No: Dysuria Musculoskeletal: Positive: Pain Skin: No Rash Neurologic: No: Weakness Psychiatric: No: Depression Endocrine: No: Polydipsia Hematologic/Lymphatic: No: Easy Bruising Physical Exam Narrative GENERAL: Well-nourished, well-developed patient in no apparent distress. SKIN: Focused skin assessment reveals no rash and nodules. Skin is Warm and dry. HEAD: Atraumatic. Normocephalic. EYES: Pupils equal and round. No scleral icterus. No injection or drainage. ENT: No nasal bleeding or discharge. Mucous membranes pink and moist. NECK: Trachea midline. No JVD. CARDIOVASCULAR: Regular rate and rhythm. No murmur appreciated. RESPIRATORY: No accessory muscle use. Clear to auscultation. Breath sounds equal bilaterally. GASTROINTESTINAL: Abdomen soft, non-tender, nondistended. Hepatic and splenic margins not palpable. MUSCULOSKELETAL: No obvious deformities. No clubbing. No cyanosis. No edema. Has prominent and readily reproducible chest wall tenderness in the left chest. It is in the anterior axillary line area. No crepitus or bruising noted NEUROLOGICAL: Awake and alert. No obvious cranial nerve deficits. Motor grossly within normal limits. Normal speech. PSYCHIATRIC: Appropriate mood and affect; insight and judgment normal. Data Data Last Documented VS Vital Signs Date Time Temp Pulse Resp B/P (MAP) Pulse Ox O2 Delivery O2 Flow Rate FiO2 11/07/17 12:59 60 18 106/74 (85) 96 Room Air 11/07/17 11:51 98.1 Orders Orders Chest, Single Ap (11/07/17 ) MDM Medical Decision Making Medical Screen Exam Complete: Yes Emergency Medical Condition: Yes Medical Record Reviewed: Yes Differential Diagnosis Rib fracture, chest wall pain, contusion Narrative Course I have reviewed the patient's electronic medical record. Reviewed his visit from 6 weeks ago including chest x-ray with multiple right-sided rib fractures This patient is clearly having musculoskeletal chest wall pain on the left. I reviewed his EKG which shows sinus rhythm and no ST elevation I reviewed his chest x-ray which is negative The patient was advised to follow up with their physician and return if they worsen. Diagnosis Primary Impression: Musculoskeletal chest pain Additional Instructions: The patient was advised to follow up with their physician and return if they worsen. Med/Other Pt SpecificInfo: Other Disposition: 01 DISCHARGE HOME Condition: Stable Jared Chaparro MD Nov 07, 2017 12:24
--- NOTE | 2017-11-07 12:44 | RADRPT ---
EXAM DATE/TIME: 11/07/2017 12:22 [place] COMPARISON: CHEST SINGLE AP, May 17, 2015, 10:01. INDICATIONS : Chest pains off and on for 2 weeks, pain worse today MEDICAL HISTORY : None. SURGICAL HISTORY : None. ENCOUNTER: Initial ACUITY: 2 weeks PAIN SCORE: 5/10 LOCATION: Bilateral chest FINDINGS: A single view of the chest demonstrates the lungs to be symmetrically aerated without evidence of mas s, infiltrate or effusion. The cardiomediastinal contours are unremarkable. Osseous structures are intact. CONCLUSION: No acute disease. Skip Alvarez MD FACR on November 07, 2017 at 12:42 Board Certified Radiologist. This report was verified electronically.
[2017-11-07 12:59] VITALS: BP 106/74; PULSE 60; RESP 18; O2SAT 96
[2017-11-07 13:40] VITALS: BP 112/77
--- NOTE | 2017-11-08 09:50 | EKG ---
Date Performed: 11/07/2017 Time Performed: 11:44:28 PTAGE: 67 years EKG: Sinus rhythm NORMAL ECG PREVIOUS TRACING : 05/06/2017 11.59 Since the previous tracing, no significant change noted. DOCTOR: Lane Mobley Interpretating Date/Time 11/08/2017 09:49:58
== END 2017-11-07 13:45 | disposition home or self-care (01) ==
LOC: PHED 11:39
DX: R07.9 Chest pain, unspecified (principal); I48.91 Unspecified atrial fibrillation; M19.90 Unspecified osteoarthritis, unspecified site; J45.909 Unspecified asthma, uncomplicated; F41.9 Anxiety disorder, unspecified; K21.9 Gastro-esophageal reflux disease without esophagitis; I10 Essential (primary) hypertension; F32.9 Major depressive disorder, single episode, unspecified; Z87.19 Personal history of other diseases of the digestive system
CPT/HCPCS: 71045; 93005; 99284

== ENCOUNTER 2018-03-04 15:55 | Observation (INO) ==
[2018-03-04] MEDS ORDERED: Sod Chloride 0.9% Inj 1,000 ML IV.SIG ONE ×2 (16:18→16:27)
--- NOTE | 2018-03-04 16:26 | ED ---
HPI General Chief complaint: Chest Pain Stated complaint: Chest Pain/Weakness Time Seen by Provider: 03/04/18 16:07 Source: patient Mode of arrival: ambulatory Limitations: no limitations History of Present Illness HPI narrative: 67yo M with PMH of HTN, anxiety, depression, chronic back pain follows with pain management, gastric bypass presents to the ED with c/o midsternal chest pain for a few days. Pain is intermittent, sharp and fluttering. Pain is mild in severity. Denies any sob, fever, cough, vomiting, abdominal pain. Pt also states he has been feeling nauseous for a week and has been not eating well since his gastric bypass surgery 6 years ago. Pt was evaluated for abdominal pain in the ED last month. Piece Goods Clerk is Dr. Mancini and said he has not had a stress test for years. Related Data Home Medications Medication Instructions Recorded Confirmed fluoxetine [Prozac] 40 mg PO DAILY 01/31/18 03/04/18 hydrocodone-ibuprofen 1 tab PO Q4H PRN 01/31/18 03/04/18 lorazepam 1 mg PO BID 01/31/18 03/04/18 losartan 25 mg PO DAILY 01/31/18 03/04/18 metoprolol tartrate 25 mg PO DAILY 01/31/18 03/04/18 mirtazapine 30 mg PO HS 01/31/18 03/04/18 omeprazole 40 mg PO DAILY 01/31/18 03/04/18 zolpidem 10 mg PO HS 01/31/18 03/04/18 Previous Rx's Medication Instructions Recorded promethazine 25 mg PO Q6H PRN #10 tab 01/31/18 Allergies Allergy/AdvReac Type Severity Reaction Status Date / Time No Known Allergies Allergy Verified 01/31/18 13:32 Review of Systems ROS: all other systems reviewed are negative [facility] Medical History Medical History GERD (gastroesophageal reflux disease) (Acute) Anxiety and depression (Acute) Hypertension (Acute) Surgical History Surgical History Hx of cholecystectomy (Acute) H/O knee surgery (Acute) Hx of gastric bypass (Acute) Previous back surgery (Acute) Social History Social History Substance History: No History of Abuse Second Hand Smoke Exposure: No Smoking Status: Never smoker How Often Do You Have a Drink Containing Alcohol: Never Recent Travel in [facility] within the Last 8 Weeks: No Recent Out of Country Travel within the Last 8 Weeks: No Immunization History Tetanus Immunization: <5 Years Hx Influenza Vaccine This Season: Yes Exam Narrative Exam Narrative: GENERAL: 67yo M in mild distress. SKIN: Focused skin assessment warm/dry. HEAD: Atraumatic. Normocephalic. EYES: Pupils equal and round. No scleral icterus. No injection or drainage. ENT: No nasal bleeding or discharge. Mucous membranes pink and moist. NECK: Trachea midline. No JVD. CARDIOVASCULAR: Regular rate and rhythm. No murmur appreciated. RESPIRATORY: No accessory muscle use. Clear to auscultation. Breath sounds equal bilaterally. GASTROINTESTINAL: Abdomen soft, non-tender, nondistended. MUSCULOSKELETAL: No obvious deformities. No clubbing. No cyanosis. Trace bilateral lower extremity edema. NEUROLOGICAL: Awake and alert. No obvious cranial nerve deficits. Motor grossly within normal limits. Normal speech. PSYCHIATRIC: Appropriate mood and affect; insight and judgment normal. Course Initial Documented Vital Signs Temperature 98.8 F 03/04/18 16:01 Pulse Rate 66 03/04/18 16:01 Respiratory Rate 16 03/04/18 16:01 Blood Pressure 144/88 H 03/04/18 16:01 Pulse Oximetry 98 03/04/18 16:01 Last Documented Vital Signs Temperature 98.8 F 03/04/18 16:01 Pulse Rate 66 03/04/18 16:01 Respiratory Rate 16 03/04/18 16:01 Blood Pressure 144/88 H 03/04/18 16:01 Pulse Oximetry 98 03/04/18 17:35 Medical Decision Making MDM Narrative Medical decision making narrative: 67yo M with atypical chest pain. Labs reviewed, no leukocytosis. H/H normal. CXR showed no acute infiltrate or effusion. Troponin negative. Lipase normal. BMP unremarkable. CXR showed no acute infiltrate. Pt said he is due for his hydrocodone for his back pain so given pt his home medication. Pt refused aspirin because it makes his stomach bleed. Although chest pain is atypical, pt has cardiac risk factors and has not had stress test for years. Will observe patient with serial EKG and cardiac enzymes. Discussed with Dr. Wikles and accepted to her service. Differential Diagnosis Differential Diagnosis: ACS vs. anxiety vs. GERD vs. electrolyte abnormality vs. dehydration Lab Data Result diagrams: 03/04/18 16:40 03/04/18 16:40 Lab Results 03/04/18 03/04/18 03/04/18 Range/Units 16:40 16:40 16:40 CBC w Diff Auto diff final WBC 4.8 (4.0-11.0) th/mm3 RBC 3.96 L (4.50-5.90) mil/mm3 Hgb 13.2 (13.0-17.0) gm/dL Hct 40.3 (39.0-51.0) % MCV 102.0 H (80.0-100.0) fL MCH 33.5 (27.0-34.0) pg MCHC 32.8 (32.0-36.0) % RDW 15.7 (11.6-17.2) % Plt Count 227 (150-450) th/mm3 MPV 9.0 (7.0-11.0) fL Neut % (Auto) 58.8 (16.0-70.0) % Lymph % (Auto) 23.1 (9.0-44.0) % [place] % (Auto) 14.7 H (0.0-8.0) % Eos % (Auto) 1.1 (0.0-4.0) % Baso % (Auto) 2.3 H (0.0-2.0) % Neut # (Auto) 2.8 (1.8-7.7) th/mm3 Lymph # (Auto) 1.1 (1.0-4.8) th/mm3 [place] # (Auto) 0.7 (0.0-0.9) th/mm3 Eos # (Auto) 0.1 (0.0-0.4) th/mm3 Baso # (Auto) 0.1 (0.0-0.2) th/mm3 WBC Differential . Differential Comment . PT 11.7 H (9.8-11.6) sec INR 1.2 Ratio APTT 24.3 (24.3-30.1) sec Sodium 142 (136-145) meq/L Potassium 3.6 (3.5-5.1) meq/L Chloride 105 (98-107) meq/L Carbon Dioxide 26.8 (21.0-32.0) meq/L Anion Gap 10 (5-15) meq/L BUN 14 (7-18) mg/dL Creatinine 0.88 (0.60-1.30) mg/dL Estimated GFR 86 L (>89) mL/min Random Glucose 79 (74-106) mg/dL Calcium 8.3 L (8.5-10.1) mg/dL Magnesium 2.1 (1.5-2.5) mg/dL Troponin I Less than 0.02 L (0.02-0.05) ng/mL Lipase 83 (73-393) U/L Imaging Data Radiologist's impression: Chest X-Ray 03/04/18 16:18 CONCLUSION: No acute infiltrate or effusion. ECG Data EKG Prior to Arrival: No Attestation: I personally reviewed and interpreted this ECG as follows: Prior ECG tracings: available for review Interpretation: NSR 72bpm. Normal axis. VT interval 177ms. Mild ST depression II, III, aVF, V3-V6. This is similar to previous EKG on 11/07/17. Discharge Plan Discharge Disposition Patient Disposition: 30 Still Patient Discharge Details Diagnosis: Chest pain Physicians Team ED Provider: Radha Ridley Primary Care Provider: Heriberto Gan Attending Provider: Judy Wilkes Status ED Status: Admitted Observation Patient
[2018-03-04] MEDS ORDERED: Aspirin 325 MG Tablet PO ONE (16:27)
--- NOTE | 2018-03-04 16:49 | XR ---
EXAM DATE: 03/04/2018 4:35 PM EDT AGE/SEX: 67 years / Male INDICATIONS: Chest pain. CLINICAL DATA: This is the patient's initial encounter. Patient reports that signs and symptoms have been present for 1 day and indicates a pain score of 6/10. MEDICAL/SURGICAL HISTORY: Hypertension. None. COMPARISON: [facility], CHEST SINGLE AP, 11/07/2017. . FINDINGS: A single AP view of the chest demonstrates the lungs to be symmetrically aerated without evidence of mass, infiltrate or effusion. Scattered chronic interstitial changes are stable. The lungs are hyper aerated. The cardiomediastinal contours are unremarkable. Osseous structures are intact. CONCLUSION: No acute infiltrate or effusion. Electronically signed by: Anthony White MD 03/04/2018 4:48 PM EDT
[2018-03-04 16:55] LABS: Baso # (Auto) 0.1 th/mm3 (0.0-0.2); Baso % (Auto) 2.3 % (0.0-2.0); Eos # (Auto) 0.1 th/mm3 (0.0-0.4); Eos % (Auto) 1.1 % (0.0-4.0); Hematocrit 40.3 % (39.0-51.0); Hemoglobin 13.2 gm/dL (13.0-17.0); Lymph # (Auto) 1.1 th/mm3 (1.0-4.8); Lymph % (Auto) 23.1 % (9.0-44.0); Mean Corpuscular HGB Conc 32.8 % (32.0-36.0); Mean Corpuscular Hemoglobin 33.5 pg (27.0-34.0); Mono # (Auto) 0.7 th/mm3 (0.0-0.9); Mono % (Auto) 14.7 % (0.0-8.0); Neut # (Auto) 2.8 th/mm3 (1.8-7.7); Neut % (Auto) 58.8 % (16.0-70.0); Platelet Count 227 th/mm3 (150-450); Red Blood Count 3.96 mil/mm3 (4.50-5.90); Red Cell Distribution Width 15.7 % (11.6-17.2); White Blood Count 4.8 th/mm3 (4.0-11.0)
[2018-03-04 17:03] LABS: Chloride 105 meq/L (98-107); Potassium 3.6 meq/L (3.5-5.1); Sodium 142 meq/L (136-145)
[2018-03-04 17:06] LABS: Calcium 8.3 mg/dL (8.5-10.1)
[2018-03-04 17:07] LABS: Anion Gap 10 meq/L (5-15); Blood Urea Nitrogen 14 mg/dL (7-18); Carbon Dioxide 26.8 meq/L (21.0-32.0); Glucose,Random 79 mg/dL (74-106); Lipase 83 U/L (73-393); Magnesium 2.1 mg/dL (1.5-2.5)
[2018-03-04 17:09] LABS: Activated Partial Thrombo Time 24.3 sec (24.3-30.1); INR 1.2 Ratio; Prothrombin Time 11.7 sec (9.8-11.6)
[2018-03-04 17:10] LABS: Glomerular Filtration Rate 86 mL/min (>89)
[2018-03-04] MEDS ORDERED: Acetaminophen 500 MG Tablet PO PRN (17:35)
[2018-03-04 20:33] LABS: Creatine Kinase 44 U/L (39-308)
[2018-03-04] MEDS: Metoprolol Tartrate 25 MG Tablet PO SCH (20:55)
[2018-03-04] MEDS: LORazepam 1 MG Tablet PO SCH (20:55)
[2018-03-04] MEDS ORDERED: Mirtazapine 15 MG Tablet PO SCH (21:00)
[2018-03-04] MEDS: Morphine Inj 4 MG/ML Vial IV.PUSH PRN (21:03)
[2018-03-04 23:09] LABS: Troponin I 0.02 ng/mL (0.02-0.05)
[2018-03-05] MEDS: Morphine Inj 4 MG/ML Vial IV.PUSH PRN ×2 (00:45→05:15)
--- NOTE | 2018-03-05 07:56 | ECG ---
Date Performed: 03/04/2018 Time Performed: 19:44:28 PTAGE: 67 years EKG: Sinus rhythm LOW QRS VOLTAGE IN EXTREMITY LEADS PROLONGED QT INTERVAL ABNORMAL ECG PREVIOUS TRACING : 03/04/2018 16.01 DOCTOR: Juanjo Garcia Interpretating Date/Time 03/05/2018 07:54:36
--- NOTE | 2018-03-05 08:12 | P.HP ---
History of Present Illness Primary Care Physician: Heriberto Gan MD Chief Complaint: Chest pain History of Present Illness: 67-year-old male with known history of hypertension, history of atrial fibrillation, pulmonary emboli, chronic back pain who presented to hospital because of chest discomfort. Patient states that he has had chest pain for over the last few years. Over the last couple weeks has progressively gotten worse. He states that his combination of what he thinks is a fluttering sensation as well as pain. Discomfort can come on at any time during the day without exertion or rest. States that the pain is 7/10 on a pain scale. He has been tolerating until the pain became more constant so he came to emergency department for evaluation. Patient also indicates that he has history of gastric bypass surgery that was done 6 years ago. He states that he has had multiple endoscopies done on annual basis. Last one was done by Dr. Martins. Patient indicates that is about time to have another one performed. Indicates that his pouch was made a little too high and he can develop discomfort from that. Over the last 3 days he has been having increased nausea which he indicates has caused him not to take too much p.o. intake. He is tolerating liquids when he takes his medications. Patient does have history of atrial fibrillation status post ablation. He does not know if he has had a stress test done within the last year. Patient was evaluated by emergency room physician. Workup was unremarkable. ER physician recommended patient be observed in the chest pain center for further evaluation and management. Patient denies any shortness of breath, dyspnea, lightheadedness, dizziness, diaphoresis. Patient indicates that he been under a lot more stress lately. - Diagnosis (1) Chest pain Review of Systems All other systems reviewed negative except as stated in HPI Cardiovascular: Reports chest pain, Reports irregular heart rhythm Gastrointestinal: Reports nausea PMFSH - History History Provided By: Patient - Medical History Medical History: Medical History (Last Updated 03/05/18 @ 08:04 by HERLINDA Whelan) History of pulmonary embolism (Acute) History of atrial fibrillation (Acute) GERD (gastroesophageal reflux disease) (Acute) Anxiety and depression (Acute) Hypertension (Acute) - Surgical History Surgical History: Surgical History (Last Updated 03/05/18 @ 08:04 by HERLINDA Whelan) History of cardiac radiofrequency ablation (Acute) Hx of cholecystectomy (Acute) H/O knee surgery (Acute) Hx of gastric bypass (Acute) Previous back surgery (Acute) - Family History Family History: Family History (Last Updated 03/05/18 @ 08:08 by HERLINDA Whelan) Mother History of heart disease Father History of heart disease Grandparent History of diabetes mellitus Sister History of lung cancer - Tobacco History Second Hand Smoke Exposure: No Tobacco Use In Past 30 Days: No Smoking Status: Former smoker Tobacco Type: Cigarettes Number of Pack Years (if former smoker): 90 - Alcohol History How Often Do You Have a Drink Containing Alcohol: 2 to 3 times a week - Substance Use History Substance History: No History of Abuse - Travel History Recent Travel in the [place] Within the Last 8 Weeks: No Recent Travel Out of the Country Within the Last 8 Weeks: No - Immunization History Tetanus Immunization: Unsure Hx Influenza Vaccine This Season: No Medications and Allergies Active Medications: Active Medications Acetaminophen (Tylenol) 500 mg PO Q4H PRN PRN Reason: HEADACHE Fluoxetine HCl (Prozac) 40 mg PO DAILY [facility] Lorazepam (Ativan) 1 mg PO BID [facility] Last Admin: 03/04/18 20:55 Dose: 1 mg Losartan Potassium (Cozaar) 25 mg PO DAILY [facility] Metoprolol Tartrate (Lopressor) 25 mg PO BID [facility] Last Admin: 03/04/18 20:55 Dose: 25 mg Mirtazapine (Remeron) 30 mg PO HS [facility] Last Admin: 03/04/18 20:55 Dose: 30 mg Morphine Sulfate (Morphine Inj) 2 mg IV.PUSH Q4H PRN PRN Reason: PAIN SCALE 8 TO 10 Last Admin: 03/05/18 05:15 Dose: 2 mg Nitroglycerin (Nitrostat Sl) 0.4 mg SL Q5M PRN PRN Reason: CHEST PAIN Pantoprazole Sodium (Protonix) 40 mg PO DAILY [facility] Sodium Chloride (Ns Flush) 2 ml IV.FLUSH BID [facility] Last Admin: 03/04/18 20:55 Dose: Not Given Sodium Chloride (Ns Flush) 2 ml IV.FLUSH PRN PRN PRN Reason: FLUSH AFTER USING IV ACCESS Allergies Allergy/AdvReac Type Severity Reaction Status Date / Time No Known Allergies Allergy Verified 01/31/18 13:32 Home Medications Medication Instructions Recorded Confirmed Type fluoxetine [Prozac] 40 mg PO DAILY 01/31/18 03/04/18 History hydrocodone-ibuprofen 1 tab PO Q4H PRN 01/31/18 03/04/18 History lorazepam 1 mg PO BID 01/31/18 03/04/18 History losartan 25 mg PO DAILY 01/31/18 03/04/18 History metoprolol tartrate 25 mg PO DAILY 01/31/18 03/04/18 History mirtazapine 30 mg PO HS 01/31/18 03/04/18 History omeprazole 40 mg PO DAILY 01/31/18 03/04/18 History zolpidem 10 mg PO HS 01/31/18 03/04/18 History Zofran ODT 4 mg PO Q6HR PRN 03/04/18 03/04/18 History Exam Vital signs: Vital Signs 03/04/18 16:01 03/04/18 16:18 03/04/18 17:35 Temperature 98.8 F Pulse Rate 66 Respiratory Rate 16 Blood Pressure 144/88 H Pulse Oximetry 98 98 98 03/04/18 19:12 03/04/18 20:00 03/05/18 00:00 Temperature 98.1 F 97.2 F L Pulse Rate 65 62 57 L Respiratory Rate 18 20 20 Blood Pressure 139/99 H 143/90 H 133/92 H Pulse Oximetry 100 100 99 03/05/18 04:00 Temperature 97 F L Pulse Rate 61 Respiratory Rate 20 Blood Pressure 129/86 Pulse Oximetry 98 Intake & Output 03/04/18 03/05/18 03/05/18 18:59 06:59 18:59 Intake Total 1999 120 / 120 Output Total 600 / 600 Balance 1999 -480 / -480 Weight 70 kg 71.6 kg Intake: IV 1999 NS Inj 1,000 ML @ Wide Open IV. 1999 SIG BOLUS ONE Rx#:[id number] Oral 120 / 120 Output: Urine 600 / 600 Other: Weight On Admission 71.8 kg Narrative: GENERAL: Well-developed, well-nourished, in no acute distress. alert and orientated HEENT: Head is normocephalic without any lesions or masses noted. Facial features are symmetric. Eyes: Pupils equal round reactive to light. Extraocular muscles are intact. Conjunctivae were clear. Oropharyngeal: Pharynx without any erythema edema. Tongue is midline without deviation. Buccal mucosa is moist without any masses or lesions NECK: Supple without any masses. Trachea midline no deviation. No JVD, no bruits are appreciated CARDIAC: Regular rhythm, regular rate. S1/S2 are heard. No murmurs gallops or rubs. Patient has obvious reproducible chest wall tenderness noted around the manubrium. LUNGS: Clear to auscultation bilaterally. No wheeze, rhonchi or rales. No use of accessory muscles on inspiration or expiration. ABDOMEN: Soft, epigastric tenderness. Nondistended. Bowel sounds heard in all 4 quadrants. No organomegaly or masses. Negative rebound, negative guarding EXTREMITIES: No edema, pulses are equal bilaterally. No cyanosis or clubbing NEUROLOGY: Mood and affect appear appropriate. Cranial nerves II through XII grossly intact. Muscle strength 5/5 in upper and lower extremities bilaterally. Deep tendon reflexes are 2+ in upper and lower extremities bilaterally. Results - Labs CBC & Chem 7: 03/04/18 16:40 03/04/18 16:40 Labs: Laboratory Results - last 24 hr 03/04/18 03/04/18 03/04/18 16:40 16:40 16:40 CBC w Diff Auto diff final WBC 4.8 RBC 3.96 L Hgb 13.2 Hct 40.3 MCV 102.0 H MCH 33.5 MCHC 32.8 RDW 15.7 Plt Count 227 MPV 9.0 Neut % (Auto) 58.8 Lymph % (Auto) 23.1 [place] % (Auto) 14.7 H Eos % (Auto) 1.1 Baso % (Auto) 2.3 H Neut # (Auto) 2.8 Lymph # (Auto) 1.1 [place] # (Auto) 0.7 Eos # (Auto) 0.1 Baso # (Auto) 0.1 WBC Differential . Differential Comment . PT 11.7 H INR 1.2 APTT 24.3 Sodium 142 Potassium 3.6 Chloride 105 Carbon Dioxide 26.8 Anion Gap 10 BUN 14 Creatinine 0.88 Estimated GFR 86 L Random Glucose 79 Calcium 8.3 L Magnesium 2.1 Total Creatine Kinase Troponin I Less than 0.02 L Lipase 83 03/04/18 03/04/18 19:37 22:43 CBC w Diff WBC RBC Hgb Hct MCV MCH MCHC RDW Plt Count MPV Neut % (Auto) Lymph % (Auto) [place] % (Auto) Eos % (Auto) Baso % (Auto) Neut # (Auto) Lymph # (Auto) [place] # (Auto) Eos # (Auto) Baso # (Auto) WBC Differential Differential Comment PT INR APTT Sodium Potassium Chloride Carbon Dioxide Anion Gap BUN Creatinine Estimated GFR Random Glucose Calcium Magnesium Total Creatine Kinase 44 63 Troponin I Less than 0.02 L 0.02 Lipase - Imaging Impressions Chest X-Ray 03/04/18 16:18 CONCLUSION: No acute infiltrate or effusion. Caprini VTE Risk Assessment Caprini VTE Risk Assessment: Moderate/High Risk (score >= 2) Caprini Risk Assessment Model: Point Value = 1 Point Value = 2 Point Value = 3 Point Value = 5 Age 41-60 Minor surgery BMI > 25 kg/m2 Swollen legs Varicose veins or History of unexplained or recurrent spontaneous Oral contraceptives or hormone replacement Sepsis (< 1 month) Serious lung disease, including pneumonia (< 1 month) Abnormal pulmonary function Acute myocardial infarction Congestive heart failure (< 1 month) History of inflammatory bowel disease Medical patient at bed rest Age 61-74 Arthroscopic surgery Major open surgery (> 45 min) Laparoscopic surgery (> 45 min) Malignancy Confined to bed (> 72 hours) Immobilizing plaster cast Central venous access Age >= 75 History of VTE Family history of VTE Factor V Leiden Prothrombin [id number] Lupus anticoagulant Anticardiolipin antibodies Elevated serum homocysteine Heparin-induced thrombocytopenia Other congenital or acquired thrombophilia Stroke (< 1 month) Elective arthroplasty Hip, pelvis, or leg fracture Acute spinal cord injury (< 1 month) Prophylaxis Regimen: Total Risk Factor Score Risk Level Prophylaxis Regimen 0-1 Low Early ambulation 2 Moderate Order ONE of the following: *Sequential Compression Device (SCD) *Heparin 5000 units SQ BID 3-4 Higher Order ONE of the following medications: *Heparin 5000 units SQ TID *Enoxaparin/Lovenox 40 mg SQ daily (WT < 150 kg, CrCl > 30 mL/min) *Enoxaparin/Lovenox 30 mg SQ daily (WT < 150 kg, CrCl > 10-29 mL/min) *Enoxaparin/Lovenox 30 mg SQ BID (WT < 150 kg, CrCl > 30 mL/min) AND/OR *Sequential Compression Device (SCD) 5 or more Highest Order ONE of the following medications: *Heparin 5000 units SQ TID (Preferred with Epidurals) *Enoxaparin/Lovenox 40 mg SQ daily (WT < 150 kg, CrCl > 30 mL/min) *Enoxaparin/Lovenox 30 mg SQ daily (WT < 150 kg, CrCl > 10-29 mL/min) *Enoxaparin/Lovenox 30 mg SQ BID (WT < 150 kg, CrCl > 30 mL/min) AND *Sequential Compression Device (SCD) Assessment and Plan - Assessment (1) Chest pain Code(s): R07.9 - Chest pain, unspecified Status: Acute - Plan Chest pain, atypical -Patient does have increased risk factors to include age, male, hypertension or tobacco use -Patient has been ruled out for acute coronary event with serial cardiac enzymes are negative -Serial EKG shows sinus rhythm without any. Telemetry was reviewed which did not indicate any signs of tachycardia or atrial fibrillation -Myocardial perfusion study was performed and indicated no perfusion defect, low risk -Patient continued on aspirin, morphine for pain control History of pulmonary emboli -he is not tachycardic, shortness of breath, hypoxic. Will obtain d-dimer for further evaluation. -D-dimer was positive and pulmonary gram was performed which did indicate small pulmonary emboli -Results were discussed with the patient extensively. Patient does have history of previous pulmonary emboli. Patient will likely require anticoagulation for life. Discussed different options to include Coumadin, Xarelto, Eliquis. Patient is agreement one of the newer products that do not require constant monitoring -Start patient on Xarelto Hypertension -Home medications were continued Chronic back pain -Home medications were continued History of gastric bypass surgery -Patient with recurrent nausea, difficulty eating. Usually undergoes annual endoscopy by Dr. Martins -Patient does have reproducible tenderness noted in that area. 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 DVT prevention -Sequential compression devices Discussed Condition With: Patient Discharge Planning: Discharge home in stable condition Activity: Ad timi. Diet: Healthy heart diet Medication per medication reconciliation Follow-up with primary medical doctor in 1 week (1) Chest pain Qualifiers: Chest pain type: unspecified Qualified Code(s): R07.9 - Chest pain, unspecified
--- NOTE | 2018-03-05 08:38 | ECG ---
Date Performed: 03/04/2018 Time Performed: 16:01:16 PTAGE: 67 years EKG: Sinus rhythm MINIMAL ST DEPRESSION BORDERLINE ECG INTERPRETATION BASED ON A DEFAULT AGE OF 38 YEARS PREVIOUS TRACING : 11/07/2017 11.44 DOCTOR: Juanjo Garcia Interpretating Date/Time 03/05/2018 08:36:27
[2018-03-05] MEDS ORDERED: IBUPROFEN PO PRN (08:48)
[2018-03-05] MEDS ORDERED: HYDROCODONE PO PRN (08:48)
[2018-03-05] MEDS ORDERED: FLUoxetine 20 MG Capsule PO SCH (09:00)
[2018-03-05] MEDS ORDERED: Heparin - SQ 10,000 UNITS/ML Vial SQ SCH (09:00)
[2018-03-05] MEDS ORDERED: Regadenoson Inj 0.4 MG/5 ML Syringe IV.PUSH ONE (09:43)
[2018-03-05 11:08] VITALS: TEMP 97.6
[2018-03-05] MEDS: LORazepam 1 MG Tablet PO SCH (11:08)
[2018-03-05] MEDS: Metoprolol Tartrate 25 MG Tablet PO SCH (11:09)
--- NOTE | 2018-03-05 11:23 | NM ---
EXAM DATE: 03/05/2018 11:15 AM EDT AGE/SEX: 67 years / Male INDICATIONS:Angina. Atrial fibrillation Substernal chest pain. CLINICAL DATA: This is the patient's initial encounter. Patient reports that signs and symptoms have been present for 1 day and indicates a pain score of 5/10. MEDICAL/SURGICAL HISTORY: Gastroesophageal reflux disease. Hypertension. Cholecystectomy. Gas tric bypass. Cardiac ablation. COMPARISON: No prior exams available for comparison. DOSE: 8.8 mCi Tc 99m Myoview at rest 26.8 mCi [id number] at stress 0.4 mg Lexiscan STRESS SYMPTOMS: Chest pain, dizziness and dyspnea. EJECTION FRACTION: > 70 % TECHNIQUE: The patient underwent pharmacologic stress with infusion of prescribed dose. Continuous ECG tracing was monitored during stress. Gated SPECT imaging was performed after stress and conventi onal SPECT imaging was performed at rest. The examination was performed on a SPECT/CT scanner, both attenuation and non-corrected datasets were reviewed. FINDINGS: Distribution: The maximum perfused segment at stress is in the anterolateral wall. Perfusion Study: No reversible perfusion defects. Gated Study: There are intact wall motion and wall thickening without hypokinetic or dyskinetic segm ents. The ejection fraction is calculated at > 70%. RISK CATEGORY: Low (<1% Annual Motality Rate) CONCLUSION: 1. No reversible perfusion defects. Electronically signed by: Earl Allen MD 03/05/2018 11:21 AM EDT
--- NOTE | 2018-03-05 11:58 | CT ---
EXAM DATE: 03/05/2018 11:54 AM EDT AGE/SEX: 67 years / Male INDICATIONS: Left Side Chest Pain CLINICAL DATA: This is the patient's initial encounter. Patient reports that signs and symptoms have been present for 2 days and indicates a pain score of 7/10. MEDICAL/SURGICAL HISTORY: Gastroesophageal reflux disease. Hypertension. Pulmonary Emboli, Atrial Fib Cholecystectomy. Gastric bypass. Cardiac Ablation RADIATION DOSE: 9.55 CTDI (mGy) COMPARISON: [facility] [place], CT PULMONARY ANGIOGRAM, 10/28/2014. . TECHNIQUE: Volumetric scanning was performed using a multi-row detector CT scanner during bolus infu milagro of 74ML ml Omnipaque 350 (iohexol) nonionic water-soluble contrast as a single exam dose. The d lady was post processed with a variety of visualization algorithms including full volume maximum inten sity projection and sliding thin slab reformation. Using automated exposure control and adjustment of the mA and/or kV according to patient size, radiation dose was kept as low as reasonably achievable to obtain optimal diagnostic quality images. DICOM format image data is available electronically for review and comparison. FINDINGS: Pulmonary Arteries: Small filling defects are seen in the right lower lobe and lingular pulmonary ar teries. Left pulmonary arteries are patent. The left and right pulmonary arteries are normal in diam eter. Lung: No infiltrates seen. Mild emphysema. Minimal patchy density right upper lobe likely inflammati on. Effusion: None. Mediastinum: No evidence of mediastinal or hilar adenopathy. Other: The axilla is unremarkable. CONCLUSION: 1. Small pulmonary emboli in right lower lobe and lingular pulmonary arteries. 2. Mild emphysema without infiltrate. Electronically signed by: Earl Allen MD 03/05/2018 11:56 AM EDT
--- NOTE | 2018-03-05 12:57 | ECG ---
Date Performed: 03/04/2018 Time Performed: 22:40:45 PTAGE: 67 years EKG: SINUS BRADYCARDIA LOW QRS VOLTAGE IN EXTREMITY LEADS Poor R-wave progression in the anterio r precordium possible old anterior septal WA but unchanged from previous MINIMAL ST DEPRESSION PROLON GED QT INTERVAL ABNORMAL ECG PREVIOUS TRACING : 03/04/2018 19.44 DOCTOR: Charanjit Hanson Interpretating Date/Time 03/05/2018 12:56:05
--- NOTE | 2018-03-05 13:00 | TR ---
Date Performed: 03/05/2018 Time Performed: 10:09:28 DOCTOR: Charanjit Hanson DRUG LIST: CLINICAL HISTORY: REASON FOR TEST: Chest pain REASON FOR ENDING: OBSERVATION: CONCLUSION: Lexiscan stress test was performed under standard four minute protocol. Radionuclide was injected one minute prior to ending the test. No electrocardiographic abormalities were present to suggest ischemia. Nuclear imaging and interpretation are pending. COMMENTS:
[2018-03-05] MEDS ORDERED: Rivaroxaban 15 MG Tablet PO ONE (14:00)
[2018-03-05 14:27] VITALS: BP 134/86; PULSE 68; RESP 16; O2SAT 98
== END 2018-03-05 14:58 | disposition home or self-care (01) ==
LOC: PHEDA 15:55 → PH3 15:55 → PHED 15:55 → PH3 19:55
PROVIDERS: ADMIT Hospitalist; ATTEND Hospitalist
DX: I48.91 Unspecified atrial fibrillation; M54.9 Dorsalgia, unspecified; Z72.0 Tobacco use; G89.29 Other chronic pain; F32.9 Major depressive disorder, single episode, unspecified; R07.89 Other chest pain; Z98.84 Bariatric surgery status; Z83.3 Family history of diabetes mellitus; K21.9 Gastro-esophageal reflux disease without esophagitis; Z86.711 Personal history of pulmonary embolism; I10 Essential (primary) hypertension; Z90.49 Acquired absence of other specified parts of digestive tract; F41.9 Anxiety disorder, unspecified

== ENCOUNTER 2018-07-03 08:05 | Inpatient (IN) ==
[2018-07-03 08:40] LABS: Baso % (Auto) 0.6 % (0.0-2.0); Eos % (Auto) 0.2 % (0.0-4.0); Hematocrit 31.3 % (39.0-51.0); Hemoglobin 10.3 gm/dL (13.0-17.0); Lymph # (Auto) 0.9 th/mm3 (1.0-4.8); Lymph % (Auto) 14.3 % (9.0-44.0); Mean Corpuscular Hemoglobin 31.4 pg (27.0-34.0); Mean Corpuscular Volume 95.2 fL (80.0-100.0); Mean Platelet Volume 7.3 fL (7.0-11.0); Mono # (Auto) 0.4 th/mm3 (0.0-0.9); Neut # (Auto) 4.7 th/mm3 (1.8-7.7); Neut % (Auto) 78.9 % (16.0-70.0); Platelet Count 310 th/mm3 (150-450); Red Blood Count 3.29 mil/mm3 (4.50-5.90); Red Cell Distribution Width 16.4 % (11.6-17.2)
[2018-07-03 08:47] LABS: Chloride 106 meq/L (98-107); Potassium 4.3 meq/L (3.5-5.1); Sodium 140 meq/L (136-145)
[2018-07-03 08:50] LABS: Albumin 1.9 g/dL (3.4-5.0); Anion Gap 13 meq/L (5-15); Blood Urea Nitrogen 16 mg/dL (7-18); Calcium 7.5 mg/dL (8.5-10.1); Carbon Dioxide 21.4 meq/L (21.0-32.0); Glucose,Random 63 mg/dL (74-106)
[2018-07-03 08:53] LABS: Alanine Aminotransferase 21 U/L (12-78); Aspartate Aminotransferase 26 U/L (15-37)
[2018-07-03 08:54] LABS: Glomerular Filtration Rate 66 mL/min (>89)
[2018-07-03 08:55] LABS: Total Protein 5.1 g/dL (6.4-8.2)
[2018-07-03 08:56] LABS: Alkaline Phosphatase 130 U/L (45-117)
--- NOTE | 2018-07-03 09:00 | XR ---
EXAM DATE: 07/03/2018 8:43 AM EST AGE/SEX: 68 years / Male INDICATIONS: Chest pain CLINICAL DATA: This is the patient's initial encounter. Patient reports that signs and symptoms have been present for 1 day and indicates a pain score of 8/10. MEDICAL/SURGICAL HISTORY: Chronic obstructive pulmonary disease. Hypertension. Gastroesophageal reflux disease. . . Gastric bypass. Cardiac ablation. Cholecystectomy COMPARISON: [facility], CHEST 1V SINGLE AP, 05/05/2018. . FINDINGS: A single AP view of the chest demonstrates the lungs to be symmetrically hyperaerated without evidenc e of mass, infiltrate or effusion. The cardiomediastinal contours are unremarkable. Osseous structu res are intact. CONCLUSION: COPD Stable chest without evidence of acute process. Electronically signed by: Bishop Ferreira MD 07/03/2018 8:59 AM EST
--- NOTE | 2018-07-03 09:35 | ED ---
HPI General Chief complaint: Chest Pain Stated complaint: Chest Pain Time Seen by Provider: 07/03/18 08:10 Source: patient, EMS, RN notes reviewed and old records reviewed Mode of arrival: EMS History of Present Illness HPI narrative: 68yM brought in by EMS for chest pain. The patient states that he 's had chest pain intermittently for the past several years. Last night, it became acutely worse, is substernal/ non-radiating, severe, "sharp", worse with movement or deep breathing and not made better by anything. He reports that he is unable to swallow solids or liquids without coughing, is having increased difficulty swallowing and has not eaten for 2 days, and has a history of gastric bypass 6 years ago with at least 40 lb weight loss over the past 6 months (unintentional). He denies fever or chills, palpitations, diaphoresis, dyspnea, or vomiting. Previous notes show that the patient has a history of PE since at least February of this year for which he takes Xarelto; also has a history of gastric bypass, reportedly with high-riding sleeve that his chest pain has been attributed to in the past. Related Data Home Medications Medication Instructions Recorded Confirmed lorazepam 1 mg PO BID 01/31/18 07/03/18 losartan 25 mg PO DAILY 01/31/18 07/03/18 metoprolol tartrate 25 mg PO BID 01/31/18 07/03/18 mirtazapine 30 mg PO HS 01/31/18 07/03/18 omeprazole 40 mg PO DAILY 01/31/18 07/03/18 zolpidem 10 mg PO HS 01/31/18 07/03/18 fluoxetine [Prozac] 40 mg PO DAILY 03/20/18 07/03/18 Parsons 10 - 325 tab PO TID PRN 04/25/18 07/03/18 rivaroxaban [Xarelto] 20 mg PO DAILY 07/03/18 07/03/18 Allergies Allergy/AdvReac Type Severity Reaction Status Date / Time No Known Allergies Allergy Verified 07/03/18 08:16 Review of Systems ROS: all other systems reviewed are negative Constitutional Denies fever(s) Cardiovascular Reports chest pain Respiratory Denies cough Gastrointestinal Denies vomiting Genitourinary Denies dysuria Musculoskeletal Denies back pain Neurologic Denies confusion Psychiatric Denies confusion PMFSH History History Provided By: Patient Medical History Medical History History of pulmonary embolism (Acute) History of atrial fibrillation (Acute) GERD (gastroesophageal reflux disease) (Acute) Anxiety and depression (Acute) Hypertension (Acute) Surgical History Surgical History History of cardiac radiofrequency ablation (Acute) Hx of cholecystectomy (Acute) H/O knee surgery (Acute) Hx of gastric bypass (Acute) Previous back surgery (Acute) Family History Family History Mother History of heart disease Father History of heart disease Grandparent History of diabetes mellitus Sister History of lung cancer Social History Social History Substance History: No History of Abuse Second Hand Smoke Exposure: No Smoking Status: Former smoker Tobacco Type: Cigarettes Number of Pack-Years (if former smoker): 90 How Often Do You Have a Drink Containing Alcohol: Never Immunization History Tetanus Immunization: Unsure Exam Const General: no acute distress Nutritional Appearance: cachectic HENMT Face and sinus: normal facial exam Other: Mucosa dry Eyes General: appearance normal, both eyes and all related structures Resp Effort & Inspection: normal respiratory effort Auscultation: clear to auscultation bilaterally, no rhonchi and no wheezes Cardio Rate: regular rate Rhythm: regular rhythm GI Inspection: non-distended Palpation: soft and nontender Skin General: no rashes or lesions noted Neuro General: alert, awake, oriented x3 and no focal motor deficits Extrem Other: Trace lower extremity edema to ankles bilaterally Psych Affect: normal affect Course Initial Documented Vital Signs Blood Pressure 107/88 07/03/18 08:12 Pulse Oximetry 96 07/03/18 08:12 Last Documented Vital Signs Pulse Rate 68 07/03/18 09:00 Respiratory Rate 14 07/03/18 09:00 Blood Pressure 137/96 H 07/03/18 09:00 Pulse Oximetry 96 07/03/18 09:00 Medical Decision Making MDM Narrative Medical decision making narrative: Assessment: 68yM presenting with chest pain and dysphagia/ weight loss Plan: EKG and monitor Labs CXR CTA chest Addendum: No PE noted on CTA chest, labs essentially unremarkable, no acute findings on work up. Given patient's reported dysphagia/ difficulty tolerating any PO intake and significant unintentional recent weight loss, I am concerned for aspiration. He will need dysphagia workup. Case discussed with Dr. Sanabria of [facility]. Patient understands and agrees with plan. Medical Screen Exam Complete: Yes Emergency Medical Condition: Yes Differential Diagnosis Differential Diagnosis: Differential diagnosis includes, but is not limited to: worsening/ new PE, ACS, pneumonia, pleural effusion, pulmonary edema, pleuritis , GERD Medical Records Medical records reviewed: Yes I reviewed the patient's medical records. Lab Data Lab results reviewed: Yes I reviewed the patient's lab results. Result diagrams: 07/03/18 08:32 07/03/18 08:32 Lab Results 07/03/18 07/03/18 07/03/18 Range/Units 08:32 08:32 08:32 CBC w Diff Auto diff final WBC 6.0 (4.0-11.0) th/mm3 RBC 3.29 L (4.50-5.90) mil/mm3 Hgb 10.3 L (13.0-17.0) gm/dL Hct 31.3 L (39.0-51.0) % MCV 95.2 (80.0-100.0) fL MCH 31.4 (27.0-34.0) pg MCHC 33.0 (32.0-36.0) % RDW 16.4 (11.6-17.2) % Plt Count 310 (150-450) th/mm3 MPV 7.3 (7.0-11.0) fL Neut % (Auto) 78.9 H (16.0-70.0) % Lymph % (Auto) 14.3 (9.0-44.0) % [place] % (Auto) 6.0 (0.0-8.0) % Eos % (Auto) 0.2 (0.0-4.0) % Baso % (Auto) 0.6 (0.0-2.0) % Neut # (Auto) 4.7 (1.8-7.7) th/mm3 Lymph # (Auto) 0.9 L (1.0-4.8) th/mm3 [place] # (Auto) 0.4 (0.0-0.9) th/mm3 Eos # (Auto) 0.0 (0.0-0.4) th/mm3 Baso # (Auto) 0.0 (0.0-0.2) th/mm3 WBC Differential . Differential Comment . Sodium 140 (136-145) meq/L Potassium 4.3 (3.5-5.1) meq/L Chloride 106 (98-107) meq/L Carbon Dioxide 21.4 (21.0-32.0) meq/L Anion Gap 13 (5-15) meq/L BUN 16 (7-18) mg/dL Creatinine 1.10 (0.60-1.30) mg/dL Estimated GFR 66 L (>89) mL/min Random Glucose 63 L (74-106) mg/dL Calcium 7.5 L (8.5-10.1) mg/dL Magnesium 2.0 (1.5-2.5) mg/dL Total Bilirubin 0.9 (0.2-1.0) mg/dL AST 26 (15-37) U/L ALT 21 (12-78) U/L Alkaline Phosphatase 130 H (45-117) U/L Troponin I Less than 0.02 L (0.02-0.05) ng/mL B-Natriuretic Peptide 123 H (0-100) pg/mL Total Protein 5.1 L (6.4-8.2) g/dL Albumin 1.9 L (3.4-5.0) g/dL Imaging Data Radiologist's impression: Chest CTA 07/03/18 08:26 CONCLUSION: 1. No evidence of acute pulmonary emboli. 2. COPD 3. Minimal left lower lobe airspace disease characteristic of atelectasis 4. Hepatic steatosis 5. Otherwise stable evaluation. Chest X-Ray 07/03/18 08:26 CONCLUSION: COPD Stable chest without evidence of acute process. ECG Data Attestation: I personally reviewed and interpreted this ECG as follows: Interpretation: Rate: 66 BPM Rhythm: Sinus [place]: Normal Intervals: Normal intervals, no blocks, QTc 430 ms Q waves: V2/V3 T waves: Inverted in V2 ST segments: No elevations or depressions Impression: Overall low voltage, non-specific EKG, no changes as compared to EKG from 05/05/2018. Discharge Plan Discharge Disposition Patient Disposition: ED Admit(ED Internal Use Only) Discharge Condition Condition: Stable Discharge Order Discharge Orders: ED Use Only Admit Order (Routine); Ordered 07/03/18 Ordered By: Sabina Hollis Discharge Details Diagnosis: Dysphagia, Unintentional weight loss Physicians Team ED Provider: Sabina Hollis Primary Care Provider: Heriberto Gan Rxs /Orders / Referrals /Forms Prescriptions: No Action Parsons 10 - 325 tab PO TID PRN (Reason: Pain) RF: 0 omeprazole 40 mg Capsule,Delayed Release(Dr/Ec) 40 mg PO DAILY RF: 0 mirtazapine 30 mg Tablet 30 mg PO HS RF: 0 losartan 25 mg Tablet 25 mg PO DAILY RF: 0 lorazepam 1 mg Tablet 1 mg PO BID RF: 0 zolpidem 10 mg Tablet 10 mg PO HS RF: 0 metoprolol tartrate 25 mg Tablet 25 mg PO BID RF: 0 fluoxetine [Prozac] 40 mg Capsule 40 mg PO DAILY RF: 0 rivaroxaban [Xarelto] 20 mg Tablet 20 mg PO DAILY RF: 0 Discharge Instructions Patient Printed Instructions: Chest Pain (ED) Status ED Status: With Doctor
--- NOTE | 2018-07-03 10:07 | CT ---
EXAM DATE: 07/03/2018 9:56 AM EST AGE/SEX: 68 years / Male INDICATIONS: Midsternal chest pain. CLINICAL DATA: This is the patient's initial encounter. Patient reports that signs and symptoms have been present for 3 days and indicates a pain score of 6/10. MEDICAL/SURGICAL HISTORY: Gastroesophageal reflux disease. Hypertension. Cardiovascular disease. Atrial fibrillation. Pulmonary embolism. Cholecystectomy. Gastric bypass. Back surgery. Cardiac ab lation. RADIATION DOSE: 6.91 CTDI (mGy) COMPARISON: [facility], CTA PULMONARY W CONTRAST W 3D, 03/05/2018. . TECHNIQUE: Volumetric scanning was performed using a multi-row detector CT scanner during bolus infu milagro of 65 ml Omnipaque 350 (iohexol) nonionic water-soluble contrast as a single exam dose. The jb a was post processed with a variety of visualization algorithms including full volume maximum intensi ty projection and sliding thin slab reformation. Using automated exposure control and adjustment of t he mA and/or kV according to patient size, radiation dose was kept as low as reasonably achievable to obtain optimal diagnostic quality images. DICOM format image data is available electronically for r eview and comparison. FINDINGS: Pulmonary Arteries: No filling defects are seen in the pulmonary arteries out to the subsegmental ve ssels. The left and right pulmonary arteries are normal in diameter. Lung: Minimal subsegmental atelectasis is identified in the left lower lobe. Lungs are hyperinflated .. Effusion: None. Mediastinum: No evidence of mediastinal or hilar adenopathy. Other: The axilla is unremarkable. Liver is diffusely hypodense. CONCLUSION: 1. No evidence of acute pulmonary emboli. 2. COPD 3. Minimal left lower lobe airspace disease characteristic of atelectasis 4. Hepatic steatosis 5. Otherwise stable evaluation. Electronically signed by: Bishop Ferreira MD 07/03/2018 10:05 AM EST
[2018-07-03] MEDS ORDERED: Sod Chloride 0.9% Inj 1,000 ML IV.SIG ONE (10:20)
[2018-07-03] MEDS ORDERED: Morphine Inj 4 MG/ML Vial IV.PUSH ONE (10:20)
[2018-07-03] MEDS ORDERED: Bisacodyl 10 MG Supp RECTAL PRN (10:52)
[2018-07-03] MEDS ORDERED: Acetaminophen 325 MG Tablet PO PRN (10:52)
[2018-07-03] MEDS ORDERED: Sod Chloride 0.9% Inj 1,000 ML IV.CONT SCH (11:00)
--- NOTE | 2018-07-03 13:28 | P.HPIM ---
History of Present Illness Primary Care Physician: Heriberto Gan MD Chief Complaint: Chest pain History of Present Illness: 68-year-old white male presents with complaints of difficulty swallowing for 3 days. He states today he has had chest pain, generalized weakness, pain radiating to his back and into his neck, feeling like he is choking, feeling like he cannot swallow and that something is stuck in his throat. He has been having chronic nausea no palpitations no dizziness no diarrhea, he states he is lost 30 pounds in the past 4-5 months but the significant difficulty with swallowing has been only for the past couple of days. He denies fever, has felt extremely cold and chills, and has had worsening lower extremity edema lately. Patient denies cardiac history stroke or cancer history. PMhx: Hypertension, pulmonary embolism diagnosed 1 month ago started on Xarelto , GERD, COPD PSXhx: 5 back surgeries, gastric bypass 6 years ago for weight loss, total knee arthroplasty, cholecystectomy, SOChx: Denies tobacco quit over 10 years ago denies alcohol use, lives at home alone since recent of significant other June 08. FAMhx: Mother had cancer unknown type, father had coronary artery disease Review of Systems Review of Systems: all other systems reviewed are negative [facility] Medical History Medical History History of pulmonary embolism (Acute) History of atrial fibrillation (Acute) GERD (gastroesophageal reflux disease) (Acute) Anxiety and depression (Acute) Hypertension (Acute) Surgical History Surgical History History of cardiac radiofrequency ablation (Acute) Hx of cholecystectomy (Acute) H/O knee surgery (Acute) Hx of gastric bypass (Acute) Previous back surgery (Acute) Family History Family History Mother History of heart disease Father History of heart disease Grandparent History of diabetes mellitus Sister History of lung cancer Social History Social History Substance History: No History of Abuse Second Hand Smoke Exposure: No Smoking Status: Former smoker Tobacco Type: Cigarettes Number of Pack-Years (if former smoker): 90 How Often Do You Have a Drink Containing Alcohol: Never Immunization History Tetanus Immunization: Unsure Medications and Allergies Allergies Allergy/AdvReac Type Severity Reaction Status Date / Time No Known Allergies Allergy Verified 07/03/18 08:16 Home Medications Medication Instructions Recorded Confirmed Type lorazepam 1 mg PO BID 01/31/18 07/03/18 History losartan 25 mg PO DAILY 01/31/18 07/03/18 History metoprolol tartrate 25 mg PO BID 01/31/18 07/03/18 History mirtazapine 30 mg PO HS 01/31/18 07/03/18 History omeprazole 40 mg PO DAILY 01/31/18 07/03/18 History zolpidem 10 mg PO HS 01/31/18 07/03/18 History fluoxetine [Prozac] 40 mg PO DAILY 03/20/18 07/03/18 History [place] 10 - 325 tab PO TID PRN 04/25/18 07/03/18 History rivaroxaban [Xarelto] 20 mg PO DAILY 07/03/18 07/03/18 History Active Medications: Active Medications Acetaminophen (Tylenol) 650 mg PO Q4H PRN PRN Reason: Temp > 100.4 Al Hydroxide/Mg Hydroxide (Milk Of Magnesia Liq) 30 ml PO Q12H PRN PRN Reason: Mild Constipation Bisacodyl (Dulcolax Supp) 10 mg RECTAL DAILY PRN PRN Reason: SEVERE CONSITIPATION Sodium Chloride (Ns Inj) 1,000 mls @ 100 mls/hr IV.CONT .Q10H [facility] Last Admin: 07/03/18 11:39 Dose: 100 mls/hr Lactulose (Lactulose Liq) 30 ml PO DAILY PRN PRN Reason: SEVERE CONSITIPATION Ondansetron HCl (Zofran Inj) 4 mg IV.PUSH Q6H PRN PRN Reason: NAUSEA OR VOMITING Senna/Docusate Sodium (Candi-Colace) 1 tab PO BID KAMRAN Sennosides (Senokot) 17.2 mg PO Q12H PRN PRN Reason: Moderate Constipation Sodium Chloride (Ns Flush) 2 ml IV.FLUSH UNSCH PRN PRN Reason: FLUSH AFTER USING IV ACCESS Last Admin: 07/03/18 10:35 Dose: 2 ml Sodium Chloride (Ns Flush) 2 ml IV.FLUSH BID [facility] Sodium Chloride (Ns Flush) 2 ml IV.FLUSH PRN PRN PRN Reason: FLUSH AFTER USING IV ACCESS Physical Exam Vital signs: Last Vital Signs Temp 97.5 F L 07/03/18 12:00 Pulse 67 07/03/18 12:00 Resp 18 07/03/18 12:00 BP 136/97 H 07/03/18 12:00 Pulse Ox 100 07/03/18 12:00 Intake & Output 07/01/18 07/02/18 07/03/18 07/04/18 06:59 06:59 06:59 06:59 Intake Total 1000 / 1000 Balance 1000 / 1000 Weight 62 kg Narrative: GEN chronically ill-appearing significantly emaciated 76-year old white gentleman awake alert oriented to person time and place, pleasant in no acute distress, flat depressed affect HEENT normocephalic atraumatic, Pupils equal reactive, sclerae anicteric, sunken orbits temporal wasting, extraocular motion intact, mucosa is dry. posterior pharynx clear poor dentition no gum lip lesions noted NECK supple no JVD trachea midline thyroid smooth not enlarged ANT CHEST WALL without mass or tenderness to palpation HEART S1-S2 regular without murmur gallops or clicks heart sounds distant LUNGS clear to auscultation without wheeze rales or rhonchi , full symmetric expansion BACK exam is no CVA tenderness or mass increased kyphosis ABDOMEN soft nondistended, scaphoid, positive bowel sounds no guarding rebound rigidity or palpable mass LYMPH NODES no cervical, axillary or inguinal adenopathy noted EXTREMITIES no clubbing cyanosis, +2 pitting edema bilateral, peripheral pulses palpable +2, no calf tenderness, generalized wasting and atrophy NEUROLOGIC cranial nerves II through XII appear grossly intact, strength is 4 out of 5 symmetrical no clonus or rigidity SKIN warm and dry with decreased turgor, no other rash or sores noted, multiple purpura Results Labs CBC & Chem 7: 07/03/18 08:32 07/03/18 08:32 Imaging Impressions Chest CTA 07/03/18 08:26 CONCLUSION: 1. No evidence of acute pulmonary emboli. 2. COPD 3. Minimal left lower lobe airspace disease characteristic of atelectasis 4. Hepatic steatosis 5. Otherwise stable evaluation. Chest X-Ray 07/03/18 08:26 CONCLUSION: COPD Stable chest without evidence of acute process. Caprini VTE Risk Assessment Caprini VTE Risk Assessment: Moderate/High Risk (score >= 2) Caprini Risk Assessment Model: Point Value = 1 Point Value = 2 Point Value = 3 Point Value = 5 Age 41-60 Minor surgery BMI > 25 kg/m2 Swollen legs Varicose veins or History of unexplained or recurrent spontaneous Oral contraceptives or hormone replacement Sepsis (< 1 month) Serious lung disease, including pneumonia (< 1 month) Abnormal pulmonary function Acute myocardial infarction Congestive heart failure (< 1 month) History of inflammatory bowel disease Medical patient at bed rest Age 61-74 Arthroscopic surgery Major open surgery (> 45 min) Laparoscopic surgery (> 45 min) Malignancy Confined to bed (> 72 hours) Immobilizing plaster cast Central venous access Age >= 75 History of VTE Family history of VTE Factor V Leiden Prothrombin 52899E Lupus anticoagulant Anticardiolipin antibodies Elevated serum homocysteine Heparin-induced thrombocytopenia Other congenital or acquired thrombophilia Stroke (< 1 month) Elective arthroplasty Hip, pelvis, or leg fracture Acute spinal cord injury (< 1 month) Prophylaxis Regimen: Total Risk Factor Score Risk Level Prophylaxis Regimen 0-1 Low Early ambulation 2 Moderate Order ONE of the following: *Sequential Compression Device (SCD) *Heparin 5000 units SQ BID 3-4 Higher Order ONE of the following medications: *Heparin 5000 units SQ TID *Enoxaparin/Lovenox 40 mg SQ daily (WT < 150 kg, CrCl > 30 mL/min) *Enoxaparin/Lovenox 30 mg SQ daily (WT < 150 kg, CrCl > 10-29 mL/min) *Enoxaparin/Lovenox 30 mg SQ BID (WT < 150 kg, CrCl > 30 mL/min) AND/OR *Sequential Compression Device (SCD) 5 or more Highest Order ONE of the following medications: *Heparin 5000 units SQ TID (Preferred with Epidurals) *Enoxaparin/Lovenox 40 mg SQ daily (WT < 150 kg, CrCl > 30 mL/min) *Enoxaparin/Lovenox 30 mg SQ daily (WT < 150 kg, CrCl > 10-29 mL/min) *Enoxaparin/Lovenox 30 mg SQ BID (WT < 150 kg, CrCl > 30 mL/min) AND *Sequential Compression Device (SCD) Assessment and Plan Plan ATYPICAL CHEST PAINpatient has had negative myocardial perfusion scanning 2017 with EF at greater than 70%, will continue serial cardiac enzymes and telemetry monitoring but suspect his Symptoms are esophageal and GI. Continue beta-arleen, pain control as tolerated. DYSPHAGIA with odynophagialikely etiology of his chest discomfort, continue proton pump inhibitor, consult GI, swallow eval and esophagram in a.m. HYPERTENSION continue losartan, metoprolol ANXIETY/depression continue home Prozac PErecent diagnosis, CTA no acute finding, continue with Xarelto for now, SEVERE PROTEIN MALNUTRITION with significant weight loss and emaciation, likely due to dysphasia and depression, nutrition consult COPD with atelectasis, outpatient follow-up clinically stable nebs as needed. incentive spirometry GERD continue proton pump inhibitor CHRONIC PAIN SYNDROME, multiple back surgery history, opiate dependence on chronic [place] at home. dvt prophylaxis - xarelto Disposition - home w [facility] in 1-2 days pending clinical course
[2018-07-03] MEDS ORDERED: FLUoxetine 20 MG Capsule PO SCH (14:00)
[2018-07-03] MEDS ORDERED: LORazepam 1 MG Tablet PO SCH (14:00)
[2018-07-03] MEDS ORDERED: Rivaroxaban 20 MG Tablet PO SCH (14:00)
[2018-07-03] MEDS: Dextrose 5%/NaCl 0.45% Inj 1,000 ML IV.CONT SCH (15:42)
[2018-07-03] MEDS: Pantoprazole Inj 40 MG Vial IV.PUSH SCH (15:43)
[2018-07-03] MEDS: Morphine Sulfate Inj 2 MG/ML Vial IV.PUSH PRN ×2 (16:00→19:54)
--- NOTE | 2018-07-03 16:37 | ECG ---
Date Performed: 07/03/2018 Time Performed: 11:01:40 PTAGE: 68 years EKG: Sinus rhythm LOW QRS VOLTAGE IN EXTREMITY LEADS ANTEROSEPTAL MYOCARDIAL INFARCTION Since the previous tracing, no significant change noted ABNORMAL ECG PREVIOUS TRACING : 05/05/2018 11.24 DOCTOR: Paramjit Mccann Interpretating Date/Time 07/03/2018 16:35:46
--- NOTE | 2018-07-03 16:51 | ECG ---
Date Performed: 07/03/2018 Time Performed: 08:07:24 PTAGE: 68 years EKG: Sinus rhythm LOW QRS VOLTAGE IN EXTREMITY LEADS ANTEROSEPTAL MYOCARDIAL INFARCTION ABNORMAL ECG Compared to PREVIOUS TRACING , there has been loss of the R-waves in V3, this could be due to lead pl acement vs interval infarct PREVIOUS TRACIN05/05/2018 11.24.16 DOCTOR: Paramjit Mccann Interpretating Date/Time 07/03/2018 16:50:18
[2018-07-03] MEDS: Enoxaparin Inj 60 MG/0.6 ML Syringe SQ SCH (20:01)
[2018-07-03] MEDS ORDERED: Mirtazapine 15 MG Tablet PO SCH (21:00)
[2018-07-03] MEDS ORDERED: Metoprolol Tartrate 25 MG Tablet PO SCH (21:00)
[2018-07-03] MEDS ORDERED: Senna/Docusate Sodium 8.6/50 MG Tablet PO SCH (21:00)
[2018-07-04] MEDS: Morphine Sulfate Inj 2 MG/ML Vial IV.PUSH PRN ×6 (00:32→22:11)
[2018-07-04] MEDS: Dextrose 5%/NaCl 0.45% Inj 1,000 ML IV.CONT SCH ×2 (05:14→20:09)
[2018-07-04 06:30] LABS: Potassium 4.2 meq/L (3.5-5.1)
[2018-07-04 06:44] LABS: Carbon Dioxide 22.4 meq/L (21.0-32.0)
[2018-07-04 07:01] LABS: Albumin 1.6 g/dL (3.4-5.0); Calcium-Albumin Corrected 8.9 mg/dL (8.5-10.1)
[2018-07-04] MEDS ORDERED: ceFAZolin 1 GM Premix Inj 1 GM/50 ML PIGGYBACK IV.SIG SCH (10:00)
--- NOTE | 2018-07-04 11:52 | P.PNIM ---
Subjective Interval history: 68-year-old gentleman admitted with severe weakness and significant dysphasia, Patient seen and examined, looks better today, states still having trouble swallowing, no chest pain, no nausea vomiting, Physical Exam Vital signs: Last Vital Signs Temp 96.7 F L 07/04/18 08:00 Pulse 76 07/04/18 08:00 Resp 18 07/04/18 08:00 BP 131/92 H 07/04/18 08:00 Pulse Ox 97 07/04/18 10:15 Intake & Output 07/02/18 07/03/18 07/04/18 07/05/18 06:59 06:59 06:59 06:59 Intake Total 1984 Output Total 450 / 450 Balance 1535 / 1535 Weight 67.8 kg Narrative: Cachectic appearing 68-year-old white gentleman who appears in no acute distress pleasant Heart S1-S2 regular Lungs clear bilateral no wheeze no rhonchi Abdomen soft nondistended flat nontender positive bowel sounds Extremities improved +2 pitting pedal edema Results Labs CBC & Chem 7: 07/03/18 08:32 07/04/18 05:55 Assessment and Plan Plan ATYPICAL CHEST PAINpatient has had negative myocardial perfusion scanning 2017 with EF at greater than 70%, no evidence of acute ischemia, likely GI etiology, continue with GI workup DYSPHAGIA with odynophagialikely etiology of his chest discomfort, continue proton pump inhibitor, consult GI, swallow eval and esophagram pending, HYPERTENSION continue losartan, metoprolol ANXIETY/depression continue home Prozac PErecent diagnosis, CTA no acute finding, continue with Xarelto for now, SEVERE PROTEIN MALNUTRITION with significant weight loss and emaciation, likely due to dysphasia and depression, nutrition consult COPD with atelectasis, outpatient follow-up clinically stable nebs as needed. incentive spirometry GERD continue proton pump inhibitor CHRONIC PAIN SYNDROME, multiple back surgery history, opiate dependence on chronic [place] at home dvt prophylaxis - xarelto Disposition [facility] pending clinical course And GI recommendation Progress Note: Quality VTE Deep Vein Thrombosis/Pulmonary Embolism Present on Admission: No
--- NOTE | 2018-07-04 14:59 | MB ---
cc: Alo Dietz MD DATE: 07/04/2018 JOB SERVICE CONSULTANT: Alo Dietz MD HISTORY OF PRESENT ILLNESS: The patient is a 68-year-old white male I was asked to see her for further evaluation and management of silent aspiration with significant weight loss. Over the past 4-5 months, he has had a very poor appetite and he has been under stress and has lost 30 or more pounds. For the past several days, he has noticed some dysphagia with choking. Radiologic studies confirmed aspiration pneumonia. I was asked to consider insertion of a percutaneous endoscopic gastrostomy tube. PAST MEDICAL HISTORY: Hypertension, pulmonary embolism diagnosed a month ago, was on Xarelto, which has been held for the past several days. He has reflux disease and COPD. PAST SURGICAL HISTORY: Five back surgeries, gastric bypass 6 years ago for weight loss, which worked. He has had a total knee arthroplasty, cholecystectomy. He had Suyapa fundoplication performed that was taken down so the bypass surgery could be performed. SOCIAL HISTORY: No tobacco use in over 10 years. No alcohol use. FAMILY HISTORY: Mother had cancer of unknown type. Father had coronary artery disease. REVIEW OF SYSTEMS: He has had no recent headaches. He denies history of seizures or strokes. No chest pains or palpitations. No respiratory complaints. No urinary symptoms. He has had the weight loss as mentioned. No joint pains or rashes except for the chronic back pain he has had. He denies history of liver disease, thyroid disease, pancreatic disease or adrenal disease. MEDICATIONS: 1. Milk of Magnesia. 2. Dulcolax. 3. Lovenox injections, held since last night. 4. Ativan. 5. Morphine p.r.n. 6. Zofran p.r.n. 7. Pantoprazole 40 mg daily IV. 8. Senokot. ALLERGIES: NONE KNOWN TO MEDICATIONS. PHYSICAL EXAMINATION: VITAL SIGNS: His weight is 67.8 kg, temperature 97.1, pulse 75, blood pressure 116/84. GENERAL: He is quite thin. HEENT: He is anicteric. He is pale appearing. Extraocular motions are intact. LYMPHATIC: I appreciate no submandibular, cervical, supraclavicular, axillary or epitrochlear adenopathy. LUNGS: Clear to auscultation. HEART: Regular rate and rhythm. No gross murmur or gallop. ABDOMEN: Good bowel sounds with no bruit. The abdomen is soft and nontender. There is a prominent firmness in the infraumbilical region that is nontender. No hepatosplenomegaly is noted. EXTREMITIES: No pedal edema, dupuytren's contractures or palmar erythema. LABORATORY STUDIES: Yesterday, white count 6.0, hemoglobin 10.3, MCV 95.2, platelets 310. Sodium 140, potassium 4.3, BUN 16, creatinine 1.1. AST, ALT and bilirubin all normal. Alkaline phosphatase 130. Albumin 1.9. RADIOGRAPHIC STUDIES: Chest x-ray performed on 07/03/2018 and revealed symmetric hyperinflation with no mass or infiltrate or effusion. IMPRESSION: Significant weight loss with dysphagia and documentation of silent aspiration based on the speech pathology evaluation. The patient agrees to have a percutaneous endoscopic gastrostomy tube placed. I discussed the procedure with him including potential risks of medication reaction, bleeding, perforation and the small chance of not succeeding given his prior gastric surgery. If this is the case, we will ask Dr. Henriquez to consider placing a surgical jejunostomy tube as Dr. Henriquez had performed his fundoplication the patient tells me. MD LUIS Granado/chelsi , 02:32 PM , 02:44 PM MARCO ANTONIO
[2018-07-04] MEDS: Pantoprazole Inj 40 MG Vial IV.PUSH SCH (16:27)
--- NOTE | 2018-07-04 18:54 | ECG ---
Date Performed: 07/03/2018 Time Performed: 16:54:01 PTAGE: 68 years EKG: Sinus rhythm LOW QRS VOLTAGE IN EXTREMITY LEADS ANTEROSEPTAL MYOCARDIAL INFARCTION ABNORMAL ECG PREVIOUS TRACING : 07/03/2018 11.01 Since the previous tracing, no significant change noted DOCTOR: Wayne Morrissey Interpretating Date/Time 07/04/2018 18:54:04
[2018-07-04] MEDS ORDERED: Metoprolol Tartrate 25 MG Tablet PO ONE (19:06)
[2018-07-04] MEDS ORDERED: Chlorhexidine Gluconate 2% 1 Pack (2 Cloths) TOPICAL ONE (19:06)
[2018-07-04] MEDS ORDERED: Sodium Chlor 0.9% Inj 500 ML IV.SIG SCH (20:00)
--- NOTE | 2018-07-04 21:13 | MR ---
cc: Alo Dietz MD,Alo Gan,Heriberto Henriquez,Caleb Pope MD DATE: 07/04/2018 PROCEDURE: Panendoscopy performed by Dr. Alo Dietz. The patient is an inpatient. INDICATIONS: He has oropharyngeal dysphagia with aspiration documented radiographically. Our plan was to place a percutaneous endoscopic gastrostomy tube. He has had prior gastric weight loss surgery with a Morales-en-Y. MEDICATIONS: Ancef 1 gram IV prophylactically earlier today. SEDATION: Per anesthesiology. INSTRUMENTS: The Pentax video gastroscope. DESCRIPTION OF PROCEDURE: After obtaining written informed consent, the patient was placed in the supine position with the head of bed slightly raised. Adequate sedation was administered. The video gastroscope was passed under direct vision through the oropharynx into the esophagus, which appeared normal along its entire extent. The Z-line appeared normal at the GE junction at 42 cm. The gastric pouch or remnant was normal in appearance, but the gastroenteric anastomosis was evident at 46 cm. The small intestine mucosa for a good 15-20 cm appeared normal. The gastric remnant was too small to allow safe insertion of the gastrostomy tube. There was no transillumination visible on the abdominal wall. The instrument was withdrawn. The procedure was terminated. He tolerated it well, and there were no apparent complications. Upon completion, he was sedated and had normal stable vital signs. IMPRESSION: 1. Normal esophageal mucosa. 2. Normal Z-line at the GE junction at 42 cm. 3. Normal gastric mucosa and the remnant with the gastroenteric anastomosis at 46 cm. 4. Normal small intestine mucosa. DISPOSITION: The patient is to be observed per routine post-procedure protocol. He may return to his room and resume his prior orders. We will consult Dr. Henriquez as he has seen the patient in the past to consider surgical jejunostomy tube placement. Alo Dietz MD /ladi , 07:18 PM , 07:23 PM
[2018-07-05] MEDS: Morphine Sulfate Inj 2 MG/ML Vial IV.PUSH PRN ×2 (02:02→06:34)
[2018-07-05] MEDS: Dextrose 5%/NaCl 0.45% Inj 1,000 ML IV.CONT SCH ×2 (06:36→21:52)
--- NOTE | 2018-07-05 08:36 | P.CONGS ---
[facility] Gen Surgery Consult Note Consult date: 07/05/18 Reason for consult: other (Enteral feeding access) Requesting physician: Alo Dietz Narrative: This is a 68 year old male with a past medical history of atrial fibrillation, GERD, hypertension, gastric bypass and PE on Xarelto. The patient came to the ED several days ago with complaints of difficulty swallowing for 3 days. He reports generalized weakness with a significant weight loss over the past several months. Dr. Dietz was consulted and attempted a PEG tube in his remnant stomach but he was unable to do so. A General Surgery consultation has been consulted for evaluation of laparoscopic gastrostomy tube vs laparoscopic jejunostomy tube vs open procedure. Review of Systems All other systems reviewed negative except as stated in [facility] - History History Provided By: Patient - Medical History Medical History: Medical History (Last Reviewed 07/05/18 @ 14:33 by ERICA Whitaker) History of pulmonary embolism (Acute) History of atrial fibrillation (Acute) GERD (gastroesophageal reflux disease) (Acute) Anxiety and depression (Acute) Hypertension (Acute) - Surgical History Surgical History: Surgical History (Last Reviewed 07/05/18 @ 14:36 by ERICA Whitaker) History of cardiac radiofrequency ablation (Acute) Hx of cholecystectomy (Acute) H/O knee surgery (Acute) Hx of gastric bypass (Acute) Previous back surgery (Acute) - Family History Family History: Family History (Last Reviewed 07/03/18 @ 09:40 by Sabina Hollis DO) Mother History of heart disease Father History of heart disease Grandparent History of diabetes mellitus Sister History of lung cancer - Tobacco History Second Hand Smoke Exposure: No Tobacco Use In Past 30 Days: No Smoking Status: Former smoker Tobacco Type: Cigarettes Number of Pack Years (if former smoker): 90 - Alcohol History How Often Do You Have a Drink Containing Alcohol: Never - Substance Use History Substance History: No History of Abuse - Immunization History Tetanus Immunization: Unsure Medications and Allergies Allergies Allergy/AdvReac Type Severity Reaction Status Date / Time No Known Allergies Allergy Verified 07/03/18 08:16 Home Medications Medication Instructions Recorded Confirmed Type lorazepam 1 mg PO BID 01/31/18 07/03/18 History losartan 25 mg PO DAILY 01/31/18 07/03/18 History metoprolol tartrate 25 mg PO BID 01/31/18 07/03/18 History mirtazapine 30 mg PO HS 01/31/18 07/03/18 History omeprazole 40 mg PO DAILY 01/31/18 07/03/18 History zolpidem 10 mg PO HS 01/31/18 07/03/18 History fluoxetine [Prozac] 40 mg PO DAILY 03/20/18 07/03/18 History [employer] 10 - 325 tab PO TID PRN 04/25/18 07/03/18 History rivaroxaban [Xarelto] 20 mg PO DAILY 07/03/18 07/03/18 History Active Medications: Active Medications Al Hydroxide/Mg Hydroxide (Milk Of [employer]) 30 ml PO Q12H PRN PRN Reason: Mild Constipation Bisacodyl (Dulcolax Supp) 10 mg RECTAL DAILY PRN PRN Reason: SEVERE CONSITIPATION Enoxaparin Sodium (Lovenox Inj) 60 mg SQ Q12HR [facility] Last Admin: 07/03/18 20:01 Dose: 60 mg Dextrose/Sodium Chloride (D5w/1/2 Ns Inj) 1,000 mls @ 75 mls/hr IV.CONT .[id number] [facility] Last Admin: 07/05/18 06:36 Dose: 75 mls/hr Lactated Ringer's (Lr 1000 Ml Inj) 1,000 mls @ 30 mls/hr IV.SIG .Q24H [facility] Stop: 07/05/18 19:14 Sodium Chloride (Ns Inj) 500 mls @ 30 mls/hr IV.SIG .Q10H [facility] Lorazepam (Ativan Inj) 0.5 mg IV.PUSH Q6H PRN PRN Reason: ANXIETY AND/OR INSOMNIA Last Admin: 07/05/18 02:59 Dose: 0.5 mg Morphine Sulfate (Morphine Inj) 1 mg IV.PUSH Q4H PRN PRN Reason: PAIN SCALE 4 TO 6 MODERATE Last Admin: 07/05/18 06:34 Dose: 1 mg Ondansetron HCl (Zofran Inj) 4 mg IV.PUSH Q6H PRN PRN Reason: NAUSEA OR VOMITING Last Admin: 07/05/18 02:58 Dose: 4 mg Pantoprazole Sodium (Protonix Inj) 40 mg IV.PUSH Q24H [facility] Last Admin: 07/04/18 16:27 Dose: 40 mg Sennosides (Senokot) 17.2 mg PO Q12H PRN PRN Reason: Moderate Constipation Sodium Chloride (Ns Flush) 2 ml IV.FLUSH BID [facility] Last Admin: 07/04/18 20:08 Dose: 2 ml Sodium Chloride (Ns Flush) 2 ml IV.FLUSH PRN PRN PRN Reason: FLUSH AFTER USING IV ACCESS Last Admin: 07/05/18 06:35 Dose: 2 ml Exam Vital signs: Vital Signs 07/04/18 10:15 07/04/18 11:47 07/04/18 15:25 Temperature 97.1 F L 97.6 F Pulse Rate 75 70 Respiratory Rate 18 18 Blood Pressure 116/84 135/93 H Pulse Oximetry 97 99 100 07/04/18 18:35 07/04/18 19:25 07/04/18 19:35 Temperature 97.1 F L 97.6 F Pulse Rate 75 81 82 Respiratory Rate 18 16 16 Blood Pressure 116/84 109/85 115/87 Pulse Oximetry 0 L 100 100 07/04/18 20:00 07/04/18 20:50 07/05/18 00:00 Temperature 97.6 F 97.8 F Pulse Rate 76 74 69 Respiratory Rate 16 18 Blood Pressure 133/86 127/85 Pulse Oximetry 95 94 L 07/05/18 04:00 07/05/18 06:36 07/05/18 08:26 Temperature 95.4 F L Pulse Rate 70 Respiratory Rate 18 17 Blood Pressure 142/65 H Pulse Oximetry 97 98 Intake & Output 07/04/18 07/05/18 07/05/18 18:59 06:59 18:59 Intake Total 1000 / 1000 1100 / 1100 Output Total 700 / 700 75 / 75 Balance 300 / 300 1025 / 1025 Weight 65.9 kg Intake: IV 1000 / 1000 950 / 950 D5W/1/2 NS Inj 1,000 ML @ 75 1000 / 1000 950 / 950 mls/hr IV.CONT .[id number] [facility] Rx# :[id number] Oral 0 / 0 Anesthesia Amount 150 / 150 Output: Urine 700 / 700 75 / 75 Other: # Voids 0 Narrative: GENERAL: Very pleasant 68 year old male resting in bed in no acute distress. SKIN: Warm and dry. HEAD: Atraumatic. Normocephalic. EYES: Pupils equal and round. No scleral icterus. No injection or drainage. ENT: No nasal bleeding or discharge. Mucous membranes pink and moist. NECK: Trachea midline. CARDIOVASCULAR: Regular rate and rhythm. RESPIRATORY: No accessory muscle use. Clear to auscultation. Breath sounds equal bilaterally. GASTROINTESTINAL: Abdomen soft, non-tender, nondistended. Loose skin over abdomen. MUSCULOSKELETAL: Extremities without clubbing, cyanosis, or edema. No obvious deformities. NEUROLOGICAL: Awake and alert. No obvious cranial nerve deficits. Motor grossly within normal limits. Five out of 5 muscle strength in the arms and legs. Normal speech. PSYCHIATRIC: Appropriate mood and affect; insight and judgment normal. - Routine Respiratory Exam Present: CTA bilaterally Results - Labs 07/06/18 06:59 07/06/18 06:59 Laboratory Results CBC w Diff Auto diff final 07/03/18 08:32 WBC 6.0 th/mm3 (4.0-11.0) 07/03/18 08:32 RBC 3.29 mil/mm3 (4.50-5.90) L 07/03/18 08:32 Hgb 10.3 gm/dL (13.0-17.0) L 07/03/18 08:32 Hct 31.3 % (39.0-51.0) L 07/03/18 08:32 MCV 95.2 fL (80.0-100.0) 07/03/18 08:32 MCH 31.4 pg (27.0-34.0) 07/03/18 08:32 MCHC 33.0 % (32.0-36.0) 07/03/18 08:32 RDW 16.4 % (11.6-17.2) 07/03/18 08:32 Plt Count 310 th/mm3 (150-450) 07/03/18 08:32 MPV 7.3 fL (7.0-11.0) 07/03/18 08:32 Neut % (Auto) 78.9 % (16.0-70.0) H 07/03/18 08:32 Lymph % (Auto) 14.3 % (9.0-44.0) 07/03/18 08:32 [place] % (Auto) 6.0 % (0.0-8.0) 07/03/18 08:32 Eos % (Auto) 0.2 % (0.0-4.0) 07/03/18 08:32 Baso % (Auto) 0.6 % (0.0-2.0) 07/03/18 08:32 Neut # (Auto) 4.7 th/mm3 (1.8-7.7) 07/03/18 08:32 Lymph # (Auto) 0.9 th/mm3 (1.0-4.8) L 07/03/18 08:32 [place] # (Auto) 0.4 th/mm3 (0.0-0.9) 07/03/18 08:32 Eos # (Auto) 0.0 th/mm3 (0.0-0.4) 07/03/18 08:32 Baso # (Auto) 0.0 th/mm3 (0.0-0.2) 07/03/18 08:32 WBC Differential . 07/03/18 08:32 Differential Comment . 07/03/18 08:32 Sodium 140 meq/L (136-145) 07/04/18 05:55 Potassium 4.2 meq/L (3.5-5.1) 07/04/18 05:55 Chloride 109 meq/L (98-107) H 07/04/18 05:55 Carbon Dioxide 22.4 meq/L (21.0-32.0) 07/04/18 05:55 Anion Gap 9 meq/L (5-15) 07/04/18 05:55 BUN 13 mg/dL (7-18) 07/04/18 05:55 Creatinine 0.89 mg/dL (0.60-1.30) 07/04/18 05:55 Estimated GFR 85 mL/min (>89) L 07/04/18 05:55 POC Glucose 97 mg/dl (68-110) 07/05/18 12:32 Random Glucose 73 mg/dL (74-106) L 07/04/18 05:55 Calcium 7.0 mg/dL (8.5-10.1) L* 07/04/18 05:55 Calcium Adj for Albumin 8.9 mg/dL (8.5-10.1) 07/04/18 05:55 Magnesium 2.0 mg/dL (1.5-2.5) 07/03/18 08:32 Total Bilirubin 0.9 mg/dL (0.2-1.0) 07/03/18 08:32 AST 26 U/L (15-37) 07/03/18 08:32 ALT 21 U/L (12-78) 07/03/18 08:32 Alkaline Phosphatase 130 U/L (45-117) H 07/03/18 08:32 Troponin I Less than 0.02 ng/mL (0.02-0.05) L 07/03/18 17:00 B-Natriuretic Peptide 123 pg/mL (0-100) H 07/03/18 08:32 Total Protein 5.1 g/dL (6.4-8.2) L 07/03/18 08:32 Albumin 1.6 g/dL (3.4-5.0) L 07/04/18 05:55 Impressions Chest CTA 07/03/18 08:26 CONCLUSION: 1. No evidence of acute pulmonary emboli. 2. COPD 3. Minimal left lower lobe airspace disease characteristic of atelectasis 4. Hepatic steatosis 5. Otherwise stable evaluation. Chest X-Ray 07/03/18 08:26 CONCLUSION: COPD Stable chest without evidence of acute process. - Imaging Imaging: ITS Impressions Chest CTA 07/03/18 08:26 CONCLUSION: 1. No evidence of acute pulmonary emboli. 2. COPD 3. Minimal left lower lobe airspace disease characteristic of atelectasis 4. Hepatic steatosis 5. Otherwise stable evaluation. Chest X-Ray 07/03/18 08:26 CONCLUSION: COPD Stable chest without evidence of acute process. Assessment and Plan - Assessment (1) Unintentional weight loss Code(s): R63.4 - Abnormal weight loss Status: Acute Plan: 68 year old male with dysphagia; weight loss; in need to enteral feeding access -Will plan for laparoscopic gastrostomy tube placement in remnant stomach vs laparoscopic jejunostomy tube placement vs open procedure tomorrow -Transfer patient to [facility] -NPO -Continue Lovenox today and hold after today's doses -Obtain consents -Discussed with Dr. Johnson -Thank you for this consult; We will continue to follow Will attempt to place in stomach remnant, depending upon findings. The exam, history, and the medical decision-making described in the above note were completed with the assistance of the mid-level provider. I reviewed and agree with the findings presented. I attest that I had a [id number] encounter with the patient on the same day, and personally performed and documented my assessment and findings in the medical record. - Plan Discussed Condition With: Dr. Martinez Head
[2018-07-05] MEDS: Enoxaparin Inj 60 MG/0.6 ML Syringe SQ SCH ×2 (09:12→23:31)
[2018-07-05] MEDS ORDERED: Morphine Sulfate Inj 2 MG/ML Vial IV.PUSH PRN (09:44)
[2018-07-05] MEDS ORDERED: Dextrose 50% in Water 50 ML Vial IV.PUSH PRN (11:13)
--- NOTE | 2018-07-05 11:20 | P.PNIM ---
Subjective Interval history: The patient was resting in bed. He says he has chronic pain all over. He was wondering if he would get his feeding tube placed today versus tomorrow. He feels like he is not eating because he is very depressed. He states multiple people close to him have this year and he is in a significant depression. Discussed with nursing. Physical Exam Vital signs: Vital Signs 07/04/18 11:47 07/04/18 15:25 07/04/18 18:35 Temperature 97.1 F L 97.6 F 97.1 F L Pulse Rate 75 70 75 Respiratory Rate 18 18 18 Blood Pressure 116/84 135/93 H 116/84 Pulse Oximetry 99 100 0 L 07/04/18 19:25 07/04/18 19:35 07/04/18 20:00 Temperature 97.6 F 97.6 F Pulse Rate 81 82 76 Respiratory Rate 16 16 16 Blood Pressure 109/85 115/87 133/86 Pulse Oximetry 100 100 95 07/04/18 20:50 07/05/18 00:00 07/05/18 04:00 Temperature 97.8 F 95.4 F L Pulse Rate 74 69 70 Respiratory Rate 18 18 Blood Pressure 127/85 142/65 H Pulse Oximetry 94 L 97 07/05/18 06:36 07/05/18 08:00 07/05/18 08:26 Temperature 97.6 F Pulse Rate 83 Respiratory Rate 17 18 Blood Pressure 119/86 Pulse Oximetry 97 98 Intake & Output 07/04/18 07/05/18 07/05/18 18:59 06:59 18:59 Intake Total 1000 / 1000 1100 / 1100 Output Total 700 / 700 75 / 75 Balance 300 / 300 1025 / 1025 Weight 65.9 kg Intake: IV 1000 / 1000 950 / 950 D5W/1/2 NS Inj 1,000 ML @ 75 1000 / 1000 950 / 950 mls/hr IV.CONT .[id number] [facility] Rx# :[id number] Oral 0 / 0 Anesthesia Amount 150 / 150 Output: Urine 700 / 700 75 / 75 Other: # Voids 0 Narrative: Gen: Cachectic appearing male in no acute distress. HEENT: NC, AT. Heart: S1-S2 regular, no murmurs. Lungs: clear bilaterally, no wheezes, no rhonchi. Abdomen: soft, nondistended, nontender, positive bowel sounds. Extremities: +2 pitting pedal edema. Neuro: No gross deficits. Results - Labs CBC & Chem 7: 07/03/18 08:32 07/04/18 05:55 Assessment and Plan - Plan ATYPICAL CHEST PAIN Patient has had a negative myocardial perfusion scanning 03/05/2018 with EF at greater than 70%, no evidence of acute ischemia. Chronic. -pain control as needed. -telemetry. DYSPHAGIA With odynophagialikely etiology of his chest discomfort. S/p EGD by GI which was normal. -continue proton pump inhibitor. -surgery planning on jejunostomy tube placement 07/06. Hold Lovenox in AM. HYPERTENSION -continue losartan, metoprolol. ANXIETY/depression -continue home Prozac. PE Recent diagnosis, CTA no acute findings. -Lovenox. SEVERE PROTEIN MALNUTRITION with significant weight loss and emaciation, likely due to dysphasia and depression. -nutrition and speech following. Hypoglycemia S/t decreased PO intake. -on D5. -glucose q6h. COPD with atelectasis. clinically stable. -nebs as needed. incentive spirometry. CHRONIC PAIN SYNDROME multiple back surgery history, opiate dependence on chronic [place] at home. -pain control. dvt prophylaxis - Lovenox Discharge Planning: [facility]
--- NOTE | 2018-07-05 12:58 | P.DIET ---
Nutritional Evaluation Type of nutrition evaluation: initial (silent aspiration w/significant wt loss 30-lb wt loss over last 4 to 5 months; poor appetite) Screening comments: 07/03/18 MDC Poor PO Intake Subjective Barriers to Nutrition: Swallowing problem Subjective Comments: Pt reports he his only PO intake for the last several weeks has been broth and tomato soup. Pt syas he does not drink oral nutritional supplements because "they go right through me". Pt goes on to say that he has a sedentary lifestyle at home but would prefer to not have the TF'ing running all the time. Pt has a h/o Morales-en-y 6-years ago. Pt's reports his wt at 305-lb prior to the surgery. Objective - Diagnosis Dysphagia wt loss, suspected sepiration - Indications of Malnutrition Characteristics: Weight loss, Insufficient energy intake, Fat loss, Muscle loss - Objective % IBW: 82 Body Weight Used for Calculations: Actual (62 kg) Energy Needs - Lower Range (kCal/kg): 33 Energy Needs - Upper Range (kCal/kg): 38 Lower Limit kCal/kg (kCals): 2,046 Upper Limit kCal/kg (kCals): 2,356 Lower Limit Protein Factor (Grams per Kg): 1.2 Upper Limit Protein Factor (Grams per Kg): 1.6 Lower Protein Needs (Protein): 74 Upper Protein Needs (Protein): 99 Dietitian Reviewed in Medical Record: Curent medications, Intake & Output, Labs , Medical history Diet Order: NPO Speech Therapy Recommendations: Yes (07/03/18 NPO) Objective Comments: PMH includes: Anxiety , Depression, GERD, h/o AFib, h/o Pulmonary embolism, HTN h/o gastric wt loss surgery w/a Morales-en-Y; h/o esophageal dilation Meds include: Zofran, Protonix Assessment Assessment: Pt is at high nutrition risk r/t diagnosis and significant wt loss 30-lb over the last 4 to 5-months. Surgery plan for j-tube placement 07/06/18. For TF'ing, Rec Vital 1.5 @ 30ml/hr, increase 10ml/hr Q 4-hr, as tolerated, to goal rate 60ml/hr to offer 2160 kcal, 97.2g protein and 1100ml free water. Free water flushes per MD. Monitor for risk of re-feeding syndrome, labs, electrolytes. Additional Recs to follow r/t Clinical Course. Dietitian following. Recommendations: 1. For TF'ing, Rec Vital 1.5 @ 30ml/hr, increase 10ml/hr Q 4-hr, as tolerated, to goal rate 60ml/hr 2. Free water flushes per MD 3. Monitor for risk of re-feeding syndrome, labs, electrolytes 4. Additional Recs to follow r/t Clinical Course 5. Dietitian following Dietitian to Monitor: Lab values, Electrolytes, Glucose level, Intake & Output, Tube feeding tolerance, Weight change, Swallow recommendations, Medical course
[2018-07-05] MEDS: Pantoprazole Inj 40 MG Vial IV.PUSH SCH (15:11)
[2018-07-05] MEDS: HYDROmorphone PF Inj 2 MG/ML Vial IV.PUSH PRN ×3 (15:11→23:05)
[2018-07-06] MEDS ORDERED: Chlorhexidine Gluconate 2% 1 Pack (2 Cloths) TOPICAL ONE (02:59)
[2018-07-06] MEDS: HYDROmorphone PF Inj 2 MG/ML Vial IV.PUSH PRN ×5 (02:59→18:23)
[2018-07-06] MEDS ORDERED: Metoprolol Tartrate 25 MG Tablet PO SCH (02:59)
[2018-07-06] MEDS ORDERED: Sodium Chlor 0.9% Inj 500 ML IV.SIG SCH (03:00)
[2018-07-06 07:11] LABS: Baso % (Auto) 0.4 % (0.0-2.0); Eos % (Auto) 0.7 % (0.0-4.0); Hematocrit 31.1 % (39.0-51.0); Hemoglobin 10.8 gm/dL (13.0-17.0); Lymph # (Auto) 0.7 th/mm3 (1.0-4.8); Mean Corpuscular HGB Conc 34.8 % (32.0-36.0); Mean Corpuscular Hemoglobin 33.4 pg (27.0-34.0); Mean Corpuscular Volume 95.9 fL (80.0-100.0); Mean Platelet Volume 8.5 fL (7.0-11.0); Mono # (Auto) 0.3 th/mm3 (0.0-0.9); Mono % (Auto) 6.5 % (0.0-8.0); Neut # (Auto) 3.9 th/mm3 (1.8-7.7); Neut % (Auto) 77.4 % (16.0-70.0); Platelet Count 219 th/mm3 (150-450); Red Blood Count 3.24 mil/mm3 (4.50-5.90)
[2018-07-06 08:03] LABS: Anion Gap 5 meq/L (5-15); Blood Urea Nitrogen 5 mg/dL (7-18); Calcium 7.3 mg/dL (8.5-10.1); Carbon Dioxide 28.4 meq/L (21.0-32.0); Chloride 105 meq/L (98-107); Glomerular Filtration Rate Greater Than 89 mL/min (>89); Glucose,Random 83 mg/dL (74-106); Magnesium 1.6 mg/dL (1.5-2.5); Sodium 138 meq/L (136-145)
[2018-07-06 08:04] LABS: Potassium 3.9 meq/L (3.5-5.1)
[2018-07-06 08:11] LABS: Albumin 1.8 g/dL (3.4-5.0); Calcium-Albumin Corrected 9.1 mg/dL (8.5-10.1)
[2018-07-06] MEDS: Dextrose 5%/NaCl 0.45% Inj 1,000 ML IV.CONT SCH (09:58)
--- NOTE | 2018-07-06 10:40 | P.PNIM ---
Subjective Interval history: Follow-up dysphagia, severe protein calorie malnutrition, COPD hypertension, atypical chest pain, anxiety/depression. Patient seen and examined laying in bed, awaiting for PEG tube placement. Patient denies any pain or shortness of breath, patient complains of unable to eat and keep down food since he had the gastric bypass. Patient also mentioned he lives his partner a month ago in May, lost her sister in October and lost his 2 cats 3 months ago. Patient states that he really wanted to eat but he cannot, and have tried everything possible. States that he cannot drink Glucerna because they just go through right him. Patient denies any headache or dizziness, denies any chest pain or shortness of breath at this time, denies any abdominal pain, nausea, vomiting, diarrhea or constipation. Patient denies any fever or chills. Nurse reported no acute concerns. Physical Exam Vital signs: Vital Signs 07/05/18 12:00 07/05/18 15:41 07/05/18 16:00 Temperature 97.5 F L 97.2 F L Pulse Rate 81 85 Respiratory Rate 17 18 19 Blood Pressure 124/87 106/78 Pulse Oximetry 99 100 07/05/18 19:10 07/05/18 20:00 07/06/18 00:00 Temperature 97.7 F 97.7 F Pulse Rate 79 80 Respiratory Rate 18 20 20 Blood Pressure 130/86 120/87 Pulse Oximetry 100 98 07/06/18 04:00 07/06/18 07:55 Temperature 97.5 F L 97.8 F Pulse Rate 76 88 Respiratory Rate 20 18 Blood Pressure 118/87 128/90 Pulse Oximetry 99 97 Intake & Output 07/05/18 07/06/18 07/06/18 18:59 06:59 18:59 Intake Total 50 / 50 1000 / 1000 Output Total 425 / 425 250 / 250 Balance -375 / -375 750 / 750 Weight 69.1 kg Intake: IV 50 / 50 1000 / 1000 D5W/1/2 NS Inj 1,000 ML @ 75 1000 / 1000 mls/hr IV.CONT .[id number] [facility] Rx# :[id number] Output: Urine 425 / 425 250 / 250 Other: # Incontinent Voids 2 Date of Last Bowel Movement 07/02/18 07/05/18 Narrative: GENERAL: Thin appearing elderly male, in no apparent distress SKIN: Warm and dry. HEAD: Atraumatic. Normocephalic. EYES: Pupils equal and round. No scleral icterus. No injection or drainage. ENT: No nasal bleeding or discharge. Mucous membranes pink and moist. NECK: Trachea midline. No JVD. CARDIOVASCULAR: Regular rate and rhythm. RESPIRATORY: No accessory muscle use. Clear to auscultation. Breath sounds equal bilaterally. GASTROINTESTINAL: Abdomen flat soft, non-tender, nondistended. Hepatic and splenic margins not palpable. MUSCULOSKELETAL: Extremities without clubbing, cyanosis, or edema. No obvious deformities. NEUROLOGICAL: Awake and alert and oriented x3. No obvious cranial nerve deficits. Motor grossly within normal limits. Generalized weakness moving all 4 extremities. Normal speech. PSYCHIATRIC: Appropriate mood and affect; insight and judgment normal. Results - Labs CBC & Chem 7: 07/06/18 06:59 07/06/18 06:59 Laboratory Results - last 24 hr 07/05/18 07/05/18 07/06/18 12:32 18:13 04:17 WBC RBC Hgb Hct MCV MCH MCHC RDW Plt Count MPV Neut % (Auto) Lymph % (Auto) Green % (Auto) Eos % (Auto) Baso % (Auto) Neut # (Auto) Lymph # (Auto) Green # (Auto) Eos # (Auto) Baso # (Auto) WBC Differential Differential Comment Sodium Potassium Chloride Carbon Dioxide Anion Gap BUN Creatinine Estimated GFR POC Glucose 97 108 107 Random Glucose Calcium Calcium Adj for Albumin Magnesium Albumin 07/06/18 07/06/18 06:59 06:59 WBC 5.0 RBC 3.24 L Hgb 10.8 L Hct 31.1 L MCV 95.9 MCH 33.4 MCHC 34.8 RDW 17.0 Plt Count 219 MPV 8.5 Neut % (Auto) 77.4 H Lymph % (Auto) 15.0 Green % (Auto) 6.5 Eos % (Auto) 0.7 Baso % (Auto) 0.4 Neut # (Auto) 3.9 Lymph # (Auto) 0.7 L Green # (Auto) 0.3 Eos # (Auto) 0.0 Baso # (Auto) 0.0 WBC Differential . Differential Comment Auto diff final Sodium 138 Potassium 3.9 Chloride 105 Carbon Dioxide 28.4 Anion Gap 5 BUN 5 L Creatinine 0.72 Estimated GFR Greater than 89 POC Glucose Random Glucose 83 Calcium 7.3 L* Calcium Adj for Albumin 9.1 Magnesium 1.6 Albumin 1.8 L Assessment and Plan - Assessment (1) Severe protein-calorie malnutrition Code(s): E43 - Unspecified severe protein-calorie malnutrition Status: Acute (2) History of gastric bypass Code(s): Z98.84 - Bariatric surgery status Status: Chronic (3) Chest pain Code(s): R07.9 - Chest pain, unspecified Status: Acute (4) Dysphagia Code(s): R13.10 - Dysphagia, unspecified Status: Acute (5) Unintentional weight loss Code(s): R63.4 - Abnormal weight loss Status: Acute (6) Hx of gastric bypass Code(s): Z98.84 - Bariatric surgery status Status: Acute (7) GERD (gastroesophageal reflux disease) Code(s): K21.9 - Gastro-esophageal reflux disease without esophagitis Status: Acute (8) Anxiety and depression Code(s): F41.9 - Anxiety disorder, unspecified; F32.9 - Major depressive disorder, single episode, unspecified Status: Acute (9) Hypertension Code(s): I10 - Essential (primary) hypertension Status: Acute - Plan This is a 68 years old thin appearing male with past medical history of hypertension, PE, GERD, COPD presents to the emergency room with difficulty swallowing for 3 days, generalized weakness and pain radiating to his back and neck. Dysphagia With odynophagia likely etiology of his chest discomfort. S/p EGD by GI which was normal. -continue proton pump inhibitor. -surgery planning on jejunostomy tube placement 07/06. Hold Lovenox in AM. Severe protein calorie malnutrition With significant weight loss and emaciation Likely due to dysphasia and depression. History of gastric bypass -nutrition and speech following Atypical chest pain -Chronic -Patient has had a negative myocardial perfusion scanning 03/05/2018 with EF at greater than 70%, no evidence of acute ischemia. -Troponin less than 0.02 x 3 -pain control as needed -telemetry Hypertension -Blood pressure controlled -continue losartan, and metoprolol -Monitor blood pressure adjust medication as necessary Anxiety /depression -continue home Prozac. PE, Hx of Recent diagnosis, CTA no acute findings. -Continue Lovenox Hypoglycemia Likely related to decreased PO intake. -On IV fluid D5 -Blood glucose check every 6 hours COPD with atelectasis. clinically stable. -DuoNeb treatment as needed -Continue incentive spirometry every hour while awake Chronic pain syndrome multiple back surgery history -opiate dependence on chronic [place] at home. -pain control dvt prophylaxis - Lovenox Code Status: Full code Discussed Condition With: Patient and nurse (3) Chest pain Qualifiers: Chest pain type: other chest pain Qualified Code(s): R07.89 - Other chest pain; R07.8 - Other chest pain
[2018-07-06] MEDS: Pantoprazole Inj 40 MG Vial IV.PUSH SCH (16:34)
[2018-07-06] MEDS ORDERED: Bupivacaine/Epinephrine Inj 0.25% 50 ML Vial ONE (20:59)
[2018-07-06] MEDS ORDERED: ceFAZolin 1 GM Premix Inj 1 GM/50 ML PIGGYBACK IV.SIG ONE (21:21)
[2018-07-06] MEDS ORDERED: fentaNYL Citrate Inj 100 MCG/2 ML Ampul ONE (22:50)
[2018-07-06 23:36] LABS: Hematocrit 22.3 % (39.0-51.0); Hemoglobin 7.6 gm/dL (13.0-17.0)
[2018-07-06] MEDS ORDERED: Sugammadex Inj 200 MG/2 ML Vial IV.PUSH ONE (23:36)
[2018-07-06] MEDS ORDERED: Sodium Chloride 0.9% 2 ML Flush PRN IV.FLUSH (23:53)
--- NOTE | 2018-07-06 23:59 | P.OP ---
- Preoperative Diagnosis (1) Severe protein-calorie malnutrition - Postoperative Diagnosis (1) Severe protein-calorie malnutrition Date of procedure: 07/06/18 Procedure: Laparoscopy converted to open exploratory laparotomy with lysis of adhesions greater than 1 hour Gastrostomy tube insertion into gastric remnant Anesthesia: SANDY Surgeon: Caleb Henriquez MD Culture Room Worker: Ameya Chance CFA Estimated blood loss (mL): 200 IV fluids (mL): 3,000 Pathology: none sent Operation and Findings: Patient was taken to the operating room and placed on the operating table in the supine position. After an adequate level of general endotracheal anesthesia was achieved the abdomen was prepped and draped in usual fashion. Timeout was taken, confirming the correct patient, site, and procedure to be performed. A small incision was made in the left midabdomen and the peritoneal cavity entered under direct vision utilizing a 5 mm trocar and the laparoscope. Upon entering the abdominal cavity a freed up area on the right mid abdomen was noted and a 5 mm trocar was placed over here. Careful dissection of tissue off of the anterior abdominal wall freed up the right upper quadrant. The liver was identified and dissection was carried out around this. Loops of small bowel were noted but the duodenum could not be clearly identified. The ascending and transverse colon appeared to be plastered to the lateral sidewall as well as to the anterior abdominal wall. This made continued dissection and identification of the duodenum and gastric remnant impossible. Further dissection was deemed to be hazardous, and at this point the patient's previous subcostal incision was utilized for access. The laparoscopic procedure was terminated. Incision was made in the patient's previous subcostal incision and carried down through the fascia sharply. The peritoneal cavity was entered uneventfully. Anterior abdominal adhesions were taken down off of the abdominal wall with both a combination of sharp dissection and electrocautery. This allowed the transverse colon to be taken down off of the anterior abdominal wall. The colon could then be mobilized medially and the duodenum came into view. Dissection was carried back beyond the pylorus in the antrum was further mobilized off of the liver superiorly. This required greater than 1 hour of meticulous dissection with care taken to remove the lesser curvature of the gastric remnant off of the inferior surface of the liver. The gastric remnant was dissected back to the remaining fundus and the staple lines identified after further lysis of adhesions. A portion of the remnant was chosen after completely mobilizing the stomach and a separate stab incision was made in the left side of the abdomen. An 18 [place] YONIS gastrostomy tube was brought through the incision and a small gastrotomy was made. The gastrostomy tube was placed into the stomach and the stomach fixed to the anterior abdominal wall with 4 3-0 silk sutures. The balloon was inflated and the flange cinched down. The tube was irrigated and no leaks were noted. At this point, the abdomen was irrigated and Rhianna powdered placed in the right upper quadrant near the liver bed. With hemostasis assured, the abdomen was closed with a running #1 PDS suture. The skin was closed with corina. The two 5 mm trocar sites were closed in the skin with 4-0 Vicryl in an interrupted buried fashion. These were dressed with Steri-Strips. A Primapore bandage was applied over the subcostal incision. 4 x 4's were applied around the gastrostomy tube. Sponge, needle, and instrument counts were reported to be correct. The patient was extubated and taken back to the recovery room in stable condition. Patient required substantial amount of crystalloid, as he appeared to be intravascularly depleted at the beginning of the procedure.
[2018-07-07] MEDS ORDERED: *morphine SULFATE 4 MG/ML PERIprocedure ONLY ONE ×2 (00:56→02:26)
[2018-07-07] MEDS: Dextrose 5%/Lactated Ringer's 1,000 ML IV.CONT SCH ×3 (01:01→18:08)
[2018-07-07] MEDS: HYDROmorphone PF Inj 2 MG/ML Vial IV.PUSH PRN ×6 (03:22→22:31)
[2018-07-07 07:08] LABS: Baso % (Auto) 0.1 % (0.0-2.0); Hematocrit 32.3 % (39.0-51.0); Hemoglobin 11.3 gm/dL (13.0-17.0); Lymph # (Auto) 0.2 th/mm3 (1.0-4.8); Lymph % (Auto) 4.3 % (9.0-44.0); Mean Corpuscular HGB Conc 34.9 % (32.0-36.0); Mean Corpuscular Hemoglobin 32.7 pg (27.0-34.0); Mean Corpuscular Volume 93.7 fL (80.0-100.0); Mean Platelet Volume 8.6 fL (7.0-11.0); Mono # (Auto) 0.4 th/mm3 (0.0-0.9); Mono % (Auto) 8.6 % (0.0-8.0); Neut # (Auto) 4.2 th/mm3 (1.8-7.7); Platelet Count 173 th/mm3 (150-450); Red Blood Count 3.45 mil/mm3 (4.50-5.90); White Blood Count 4.9 th/mm3 (4.0-11.0)
[2018-07-07 07:42] LABS: Anion Gap 5 meq/L (5-15); Blood Urea Nitrogen 3 mg/dL (7-18); Calcium 7.2 mg/dL (8.5-10.1); Carbon Dioxide 28.8 meq/L (21.0-32.0); Chloride 104 meq/L (98-107); Glomerular Filtration Rate Greater Than 89 mL/min (>89); Glucose,Random 160 mg/dL (74-106); Potassium 3.8 meq/L (3.5-5.1); Sodium 138 meq/L (136-145)
[2018-07-07 08:01] LABS: Albumin 1.5 g/dL (3.4-5.0); Calcium-Albumin Corrected 9.2 mg/dL (8.5-10.1)
[2018-07-07] MEDS: Sodium Chloride 0.9% 2 ML Flush BID IV.FLUSH SCH ×2 (09:38→20:25)
--- NOTE | 2018-07-07 11:17 | P.PNGS ---
Subjective Interval history: Resting in bed No issues overnight Would like to work with [facility] today Physical Exam Vital signs: Vital Signs 07/06/18 12:00 07/06/18 16:00 07/06/18 20:00 Temperature 98.8 F 98.4 F 98.2 F Pulse Rate 87 91 H 89 Respiratory Rate 20 16 17 Blood Pressure 133/95 H 122/89 119/88 Pulse Oximetry 98 98 98 07/07/18 00:00 07/07/18 00:15 07/07/18 00:30 Temperature 97.3 F L Pulse Rate 96 H 93 H 85 Respiratory Rate 16 22 14 Blood Pressure 110/74 110/71 Pulse Oximetry 99 100 100 07/07/18 00:45 07/07/18 01:00 07/07/18 01:15 Temperature Pulse Rate 83 83 84 Respiratory Rate 14 14 12 Blood Pressure 112/80 Pulse Oximetry 100 100 100 07/07/18 01:30 07/07/18 01:45 07/07/18 02:00 Temperature 97.6 F Pulse Rate 84 83 82 Respiratory Rate 14 14 16 Blood Pressure 117/87 Pulse Oximetry 100 100 100 07/07/18 02:25 07/07/18 02:36 07/07/18 02:45 Temperature 97.6 F 97.6 F Pulse Rate 86 88 Respiratory Rate 14 14 Blood Pressure 140/96 H 140/96 H Pulse Oximetry 100 100 07/07/18 03:01 07/07/18 03:02 07/07/18 04:00 Temperature Pulse Rate 116 H 113 H 92 H Respiratory Rate 15 14 18 Blood Pressure 129/96 H 133/98 H 130/95 H Pulse Oximetry 100 100 07/07/18 05:00 07/07/18 05:31 07/07/18 06:00 Temperature Pulse Rate 83 82 93 H Respiratory Rate 12 11 L 10 L Blood Pressure 123/90 117/84 Pulse Oximetry 100 100 100 07/07/18 06:02 07/07/18 06:31 07/07/18 07:00 Temperature Pulse Rate 95 H 91 H 89 Respiratory Rate 17 12 17 Blood Pressure 126/89 111/79 Pulse Oximetry 100 100 100 07/07/18 07:01 07/07/18 07:31 07/07/18 08:00 Temperature 99.3 F Pulse Rate 89 93 H 84 Respiratory Rate 14 16 19 Blood Pressure 133/90 103/75 103/75 Pulse Oximetry 100 100 99 07/07/18 08:02 07/07/18 08:31 07/07/18 09:00 Temperature Pulse Rate 83 81 81 Respiratory Rate 19 20 11 L Blood Pressure 89/58 L 92/60 L Pulse Oximetry 99 99 98 07/07/18 10:00 Temperature Pulse Rate 81 Respiratory Rate Blood Pressure Pulse Oximetry Intake & Output 07/06/18 07/07/18 07/07/18 18:59 06:59 18:59 Intake Total 1000 / 1000 3700 / 3700 1000 / 1000 Output Total 420 / 420 1288 / 1288 Balance 580 / 580 2412 / 2412 1000 / 1000 Weight 81.4 kg Intake: IV 1000 / 1000 1000 / 1000 D5W/LR Inj 1,000 ML @ 125 mls/ 1000 / 1000 hr IV.CONT .Q8H [facility] Rx#: [id number] D5W/1/2 NS Inj 1,000 ML @ 75 1000 / 1000 mls/hr IV.CONT .[id number] [facility] Rx# :[id number] Anesthesia Amount 3000 / 3000 Other 300 / 300 Intake (Blood Product) Amt 400 / 400 Rbc As-3 Leukoreduced Unit 400 / 400 [id number] Output: Urine 420 / 420 Estimated Blood Loss 200 / 200 Urine Amount (Catheter) 1013 / 1013 Indwelling Urethral Catheter 1013 / 1013 Gastric Drainage 75 / 75 Gastrostomy Tube (PEG) 75 / 75 Other: Date of Last Bowel Movement 07/05/18 07/05/18 Narrative: Alert and awake Abd; subcostal incision with corina--- dressing with thin bloody drainage; RN to change G tube to gravity bag---30 cc bilious drainage - Urinary Catheter Management Indwelling Urethral Catheter Cath placed during this visit: yes Reason for continuing: Hourly intake/output Insertion date: 07/06/18 Results - Labs 07/14/18 05:03 07/14/18 05:03 Laboratory Results - last 24 hr 07/06/18 07/06/18 07/06/18 13:26 18:26 23:20 WBC RBC Hgb 7.6 L D Hct 22.3 L MCV MCH MCHC RDW Plt Count MPV Neut % (Auto) Lymph % (Auto) Craig % (Auto) Eos % (Auto) Baso % (Auto) Neut # (Auto) Lymph # (Auto) Craig # (Auto) Eos # (Auto) Baso # (Auto) WBC Differential Differential Comment Sodium Potassium Chloride Carbon Dioxide Anion Gap BUN Creatinine Estimated GFR POC Glucose 83 97 Random Glucose Calcium Calcium Adj for Albumin Albumin Nasal Screen MRSA (PCR) Blood Type Blood Type Recheck Antibody Screen MTS Gel Crossmatch 07/06/18 07/07/18 07/07/18 23:20 03:22 05:58 WBC RBC Hgb Hct MCV MCH MCHC RDW Plt Count MPV Neut % (Auto) Lymph % (Auto) Craig % (Auto) Eos % (Auto) Baso % (Auto) Neut # (Auto) Lymph # (Auto) Craig # (Auto) Eos # (Auto) Baso # (Auto) WBC Differential Differential Comment Sodium 138 Potassium 3.8 Chloride 104 Carbon Dioxide 28.8 Anion Gap 5 BUN 3 L Creatinine 0.64 Estimated GFR Greater than 89 POC Glucose Random Glucose 160 H Calcium 7.2 L* Calcium Adj for Albumin 9.2 Albumin 1.5 L Nasal Screen MRSA (PCR) Not detected Blood Type O Positive Blood Type Recheck Required Antibody Screen Negative MTS Gel Crossmatch See Detail 07/07/18 05:58 WBC 4.9 RBC 3.45 L Hgb 11.3 L D Hct 32.3 L MCV 93.7 MCH 32.7 MCHC 34.9 RDW 17.0 Plt Count 173 MPV 8.6 Neut % (Auto) 87.0 H Lymph % (Auto) 4.3 L Craig % (Auto) 8.6 H Eos % (Auto) 0.0 Baso % (Auto) 0.1 Neut # (Auto) 4.2 Lymph # (Auto) 0.2 L Craig # (Auto) 0.4 Eos # (Auto) 0.0 Baso # (Auto) 0.0 WBC Differential . Differential Comment Auto diff final Sodium Potassium Chloride Carbon Dioxide Anion Gap BUN Creatinine Estimated GFR POC Glucose Random Glucose Calcium Calcium Adj for Albumin Albumin Nasal Screen MRSA (PCR) Blood Type Blood Type Recheck Antibody Screen MTS Gel Crossmatch - Imaging Imaging: ITS Impressions Chest CTA 07/03/18 08:26 CONCLUSION: 1. No evidence of acute pulmonary emboli. 2. COPD 3. Minimal left lower lobe airspace disease characteristic of atelectasis 4. Hepatic steatosis 5. Otherwise stable evaluation. Chest X-Ray 07/03/18 08:26 CONCLUSION: COPD Stable chest without evidence of acute process. Assessment and Plan - Assessment (1) Unintentional weight loss Code(s): R63.4 - Abnormal weight loss Status: Acute Plan: 68 year old male with dysphagia; weight loss; in need to enteral feeding access -POD1 lap converted to open g tube -Start trickle feed today -Continue [facility] rehab -CBC in AM -Pain control -Transfer to 7N Dressing dry and intact Transfer to floor The exam, history, and the medical decision-making described in the above note were completed with the assistance of the mid-level provider. I reviewed and agree with the findings presented. I attest that I had a [id number] encounter with the patient on the same day, and personally performed and documented my assessment and findings in the medical record.
[2018-07-07] MEDS: Pantoprazole Inj 40 MG Vial IV.PUSH SCH (16:05)
--- NOTE | 2018-07-07 20:45 | P.PNIM ---
Subjective Interval history: Follow-up dysphagia, severe protein calorie malnutrition, COPD hypertension, atypical chest pain, anxiety/depression. Patient is resting in bed. He complains of abdominal pain. No fever, chills. He underwent open G tube placement on 07/06/2018. Physical Exam Vital signs: Last Vital Signs Temp 98.8 F 07/07/18 16:00 Pulse 96 H 07/07/18 18:00 Resp 19 07/07/18 18:02 BP 122/94 H 07/07/18 18:02 Pulse Ox 98 07/07/18 20:08 Intake & Output 07/05/18 07/06/18 07/07/18 07/08/18 06:59 06:59 06:59 06:59 Intake Total 2100 / 2100 1050 / 1050 4700 / 4700 2019 Output Total 775 / 775 675 / 675 1708 / 1708 550 / 550 Balance 1325 / 1325 375 / 375 2992 / 2992 1470 / 1470 Weight 65.9 kg 69.1 kg 81.4 kg GENERAL: Alert, NAD. SKIN: Warm and dry. HEAD: Normocephalic. EYES: No scleral icterus. No injection or drainage. NECK: Supple, trachea midline. No JVD or lymphadenopathy. CARDIOVASCULAR: Regular rate and rhythm without murmurs, gallops, or rubs. RESPIRATORY: Breath sounds equal bilaterally. No accessory muscle use. GASTROINTESTINAL: Abdomen soft, tender to palpation over left side, nondistended. MUSCULOSKELETAL: No cyanosis, or edema. BACK: Nontender without obvious deformity. No CVA tenderness. Urinary Catheter Management Indwelling Urethral Catheter: Cath placed during this visit: yes Urethral indwelling: No Insertion date: 07/06/18 Results Labs CBC & Chem 7: 07/07/18 05:58 07/07/18 05:58 Assessment and Plan (1) Unintentional weight loss: Code(s): R63.4 - Abnormal weight loss Status: Acute Plan This is a 68 years old thin appearing male with past medical history of hypertension, PE, GERD, COPD presents to the emergency room with difficulty swallowing for 3 days, generalized weakness and pain radiating to his back and neck. Dysphagia With odynophagia likely etiology of his chest discomfort. S/p EGD by GI which was normal. -continue proton pump inhibitor. -s/p Open G tube placement by General Surgery (07/06/2018). -Gen Surgery started tube feed today. Severe protein calorie malnutrition With significant weight loss and emaciation -Likely due to dysphasia and depression. -History of gastric bypass -nutrition and speech following Atypical chest pain -Chronic -Patient has had a negative myocardial perfusion scanning 03/05/2018 with EF at greater than 70%, no evidence of acute ischemia. -Troponin less than 0.02 x 3 -pain control as needed -telemetry Recent history of PE -In February 2018, patient was diagnosed with small PE -When okay with General surgery, we will start him back on Xarelto. Chronic pain syndrome multiple back surgery history -opiate dependence on chronic [place] at home. Full code. Lovenox (on hold for now). Progress Note: Quality VTE Deep Vein Thrombosis/Pulmonary Embolism Present on Admission: No
[2018-07-08] MEDS: HYDROmorphone PF Inj 2 MG/ML Vial IV.PUSH PRN ×5 (01:37→17:22)
[2018-07-08] MEDS: Dextrose 5%/Lactated Ringer's 1,000 ML IV.CONT SCH ×3 (01:38→17:12)
[2018-07-08 06:51] LABS: Baso % (Auto) 0.3 % (0.0-2.0); Eos % (Auto) 1.3 % (0.0-4.0); Hematocrit 30.6 % (39.0-51.0); Hemoglobin 10.6 gm/dL (13.0-17.0); Lymph # (Auto) 0.4 th/mm3 (1.0-4.8); Lymph % (Auto) 23.3 % (9.0-44.0); Mean Corpuscular HGB Conc 34.8 % (32.0-36.0); Mean Corpuscular Hemoglobin 32.4 pg (27.0-34.0); Mean Corpuscular Volume 93.3 fL (80.0-100.0); Mean Platelet Volume 8.3 fL (7.0-11.0); Mono # (Auto) 0.2 th/mm3 (0.0-0.9); Mono % (Auto) 9.6 % (0.0-8.0); Neut # (Auto) 1.1 th/mm3 (1.8-7.7); Neut % (Auto) 65.5 % (16.0-70.0); Platelet Count 194 th/mm3 (150-450); Red Blood Count 3.28 mil/mm3 (4.50-5.90); Red Cell Distribution Width 17.1 % (11.6-17.2); White Blood Count 1.7 th/mm3 (4.0-11.0)
[2018-07-08 07:06] LABS: Anion Gap 8 meq/L (5-15); Blood Urea Nitrogen 4 mg/dL (7-18); Calcium 6.8 mg/dL (8.5-10.1); Carbon Dioxide 26.3 meq/L (21.0-32.0); Chloride 107 meq/L (98-107); Glomerular Filtration Rate Greater Than 89 mL/min (>89); Glucose,Random 116 mg/dL (74-106); Potassium 3.2 meq/L (3.5-5.1); Sodium 141 meq/L (136-145)
[2018-07-08 07:27] LABS: Albumin 1.3 g/dL (3.4-5.0)
[2018-07-08 07:54] LABS: Lymphocytes 24 % (9-44); Monocytes 7 % (0-8); Ovalocytes 1+; Platelet Estimate Normal (Normal); Platelet Morphology Normal (Normal)
--- NOTE | 2018-07-08 09:51 | P.PNIM ---
Subjective Interval history: Follow-up dysphagia, severe protein calorie malnutrition, COPD hypertension, atypical chest pain, anxiety/depression. Patient is resting in bed. He complains of persistent abdominal pain. No fever or chills. He is tolerating tube feed well - currently at 10mL/hour. Physical Exam Vital signs: Last Vital Signs Temp 98.8 F 07/07/18 16:00 Pulse 94 H 07/08/18 06:00 Resp 11 L 07/08/18 04:00 BP 103/70 07/08/18 04:00 Pulse Ox 94 L 07/08/18 08:36 Intake & Output 07/06/18 07/07/18 07/08/18 07/09/18 06:59 06:59 06:59 06:59 Intake Total 1050 / 1050 4700 / 4700 3121 / 3121 Output Total 675 / 675 1708 / 1708 750 / 750 Balance 375 / 375 2992 / 2992 2371 / 2371 Weight 69.1 kg 81.4 kg 81.4 kg GENERAL: Alert, NAD. SKIN: Warm and dry. HEAD: Normocephalic. EYES: No scleral icterus. No injection or drainage. NECK: Supple, trachea midline. No JVD or lymphadenopathy. CARDIOVASCULAR: Irreg irreg without murmurs, gallops, or rubs. RESPIRATORY: Breath sounds equal bilaterally. No accessory muscle use. GASTROINTESTINAL: Abdomen soft, tender to palpation tanner on the right lower quadrant, nondistended. MUSCULOSKELETAL: No cyanosis, or edema. BACK: Nontender without obvious deformity. No CVA tenderness. Urinary Catheter Management Indwelling Urethral Catheter: Cath placed during this visit: yes Urethral indwelling: No Insertion date: 07/06/18 Results Labs CBC & Chem 7: 07/08/18 06:01 07/08/18 06:01 Assessment and Plan (1) Unintentional weight loss: Code(s): R63.4 - Abnormal weight loss Status: Acute Plan This is a 68 years old thin appearing male with past medical history of hypertension, PE, GERD, COPD presents to the emergency room with difficulty swallowing for 3 days, generalized weakness and pain radiating to his back and neck. Dysphagia With odynophagia likely etiology of his chest discomfort. S/p EGD by GI which was normal. -continue proton pump inhibitor. -s/p Open G tube placement by General Surgery (07/06/2018). -Gen Surgery started tube feed - currently at 10mL/hour. Acute blood loss anemia post open G tube surgery -Hgb dropped from 10.8 --> 7.6. -Received 1 unit of PRBCs. Currently, resolved, Hgb 10.6. Severe protein calorie malnutrition With significant weight loss and emaciation -Likely due to dysphasia and depression. -History of gastric bypass -nutrition and speech following Atrial fibrillation -Heart rate in the 120s range. Will start metoprolol 25mg Q8hrs. -Xarelto when okay with surgery. Recent history of PE -In February 2018, patient was diagnosed with small PE -When okay with General surgery, we will start him back on Xarelto. Chronic pain syndrome multiple back surgery history -opiate dependence on chronic [place] at home. Full code. Will start Xarelto when okay with Surgery. Progress Note: Quality VTE Deep Vein Thrombosis/Pulmonary Embolism Present on Admission: No
[2018-07-08] MEDS: Sodium Chloride 0.9% 2 ML Flush BID IV.FLUSH SCH ×2 (09:54→23:16)
[2018-07-08] MEDS: Metoprolol Tartrate 25 MG Tablet G-TUBE SCH ×3 (09:58→17:21)
[2018-07-08] MEDS ORDERED: Potassium Chloride 25 MEQ Effervescent Tablet PO ONE (12:00)
--- NOTE | 2018-07-08 12:11 | P.PNGS ---
Subjective Interval history: Doing okay Still with pain No issues overnight Physical Exam Vital signs: Vital Signs 07/07/18 12:31 07/07/18 13:00 07/07/18 13:02 Temperature Pulse Rate 86 86 86 Respiratory Rate 16 10 L 11 L Blood Pressure 114/77 111/77 Pulse Oximetry 100 100 100 07/07/18 14:00 07/07/18 14:02 07/07/18 14:31 Temperature Pulse Rate 85 83 85 Respiratory Rate 10 L 11 L 12 Blood Pressure 128/93 H 119/85 Pulse Oximetry 100 100 99 07/07/18 15:00 07/07/18 15:02 07/07/18 15:31 Temperature Pulse Rate 93 H 94 H 96 H Respiratory Rate 12 12 14 Blood Pressure 137/94 H 133/88 Pulse Oximetry 100 100 100 07/07/18 16:00 07/07/18 16:02 07/07/18 16:31 Temperature 98.8 F Pulse Rate 98 H 99 H 99 H Respiratory Rate 11 L 13 12 Blood Pressure 158/99 H 158/99 H 122/84 Pulse Oximetry 100 100 99 07/07/18 17:00 07/07/18 17:02 07/07/18 17:31 Temperature Pulse Rate 98 H 96 H 85 Respiratory Rate 19 26 H 18 Blood Pressure 136/86 119/86 Pulse Oximetry 100 100 100 07/07/18 18:00 07/07/18 18:02 07/07/18 19:00 Temperature Pulse Rate 96 H 96 H Respiratory Rate 34 H 19 13 Blood Pressure 122/94 H 124/88 Pulse Oximetry 100 99 99 07/07/18 20:00 07/07/18 20:08 07/07/18 20:31 Temperature Pulse Rate 96 H Respiratory Rate Blood Pressure 108/79 Pulse Oximetry 98 07/07/18 21:00 07/07/18 21:31 07/07/18 22:00 Temperature Pulse Rate 89 97 H Respiratory Rate 11 L 24 Blood Pressure 108/79 139/95 H 131/90 Pulse Oximetry 100 100 07/07/18 23:00 07/08/18 00:00 07/08/18 01:00 Temperature Pulse Rate 98 H 94 H 93 H Respiratory Rate 11 L 12 12 Blood Pressure 122/106 H 106/76 125/78 Pulse Oximetry 97 97 97 07/08/18 02:00 07/08/18 03:00 07/08/18 04:00 Temperature Pulse Rate 100 H 96 H 96 H Respiratory Rate 12 12 11 L Blood Pressure 133/91 H 112/83 103/70 Pulse Oximetry 95 95 96 07/08/18 04:31 07/08/18 05:00 07/08/18 05:02 Temperature Pulse Rate 139 H 103 H 106 H Respiratory Rate 24 14 15 Blood Pressure 122/91 H 129/93 H Pulse Oximetry 95 94 L 95 07/08/18 05:31 07/08/18 06:00 07/08/18 06:02 Temperature Pulse Rate 107 H 119 H 122 H Respiratory Rate 12 14 14 Blood Pressure 137/92 H 137/91 H Pulse Oximetry 96 95 94 L 07/08/18 06:31 07/08/18 07:00 07/08/18 07:01 Temperature Pulse Rate 120 H 118 H 117 H Respiratory Rate 15 12 13 Blood Pressure 133/96 H 135/89 Pulse Oximetry 94 L 95 95 07/08/18 07:32 07/08/18 08:00 07/08/18 08:02 Temperature 100.7 F H Pulse Rate 118 H 122 H 124 H Respiratory Rate 14 14 24 Blood Pressure 124/93 H 130/91 H Pulse Oximetry 95 95 95 07/08/18 08:31 07/08/18 08:36 07/08/18 09:00 Temperature Pulse Rate 127 H 126 H Respiratory Rate 22 23 Blood Pressure 139/85 Pulse Oximetry 96 94 L 95 07/08/18 09:02 07/08/18 09:31 07/08/18 09:54 Temperature Pulse Rate 96 H 124 H 143 H Respiratory Rate 20 16 22 Blood Pressure 116/74 131/92 H 124/85 Pulse Oximetry 93 L 93 L 95 07/08/18 10:00 07/08/18 10:02 07/08/18 10:32 Temperature Pulse Rate 115 H 139 H 114 H Respiratory Rate 24 16 12 Blood Pressure 117/85 123/84 132/95 H Pulse Oximetry 96 94 L 95 07/08/18 11:00 07/08/18 11:02 07/08/18 11:28 Temperature Pulse Rate 101 H 101 H Respiratory Rate 14 14 14 Blood Pressure 114/80 Pulse Oximetry 92 L 93 L 07/08/18 11:32 Temperature Pulse Rate 97 H Respiratory Rate 15 Blood Pressure 118/80 Pulse Oximetry 96 Intake & Output 12/13/18 12/14/18 12/14/18 18:59 06:59 18:59 Intake Total 2019 1101 / 1101 1000 / 1000 Output Total 550 / 550 200 / 200 Balance 1470 / 1470 901 / 901 1000 / 1000 Weight 81.4 kg Intake: IV 1999 1000 / 1000 1000 / 1000 D5W/LR Inj 1,000 ML @ 125 mls/ 1999 / 1999 1000 / 1000 1000 / 1000 hr IV.CONT .Q8H [facility] Rx#: [id number] Tube Feeding 101 / 101 Output: Urine Amount (Catheter) 300 / 300 200 / 200 Indwelling Urethral Catheter 300 / 300 200 / 200 Gastric Drainage 250 / 250 Gastrostomy Tube (PEG) 250 / 250 Other: Date of Last Bowel Movement 07/05/18 07/05/18 07/05/18 Narrative: Alert and awake Abd: subcoastal incision c/d/i; G tube in place; moderately tender to palpation - Urinary Catheter Management Indwelling Urethral Catheter Cath placed during this visit: yes Urethral indwelling: No Reason for continuing: Hourly intake/output Insertion date: 07/06/18 Results - Labs 07/14/18 05:03 07/14/18 05:03 Laboratory Results - last 24 hr 07/08/18 07/08/18 07/08/18 01:40 06:01 06:01 WBC 1.7 L RBC 3.28 L Hgb 10.6 L Hct 30.6 L MCV 93.3 MCH 32.4 MCHC 34.8 RDW 17.1 Plt Count 194 MPV 8.3 Prelim Diff (Auto) Slide review pending Neut % (Auto) 65.5 Lymph % (Auto) 23.3 [place] % (Auto) 9.6 H Eos % (Auto) 1.3 Baso % (Auto) 0.3 Neut # (Auto) 1.1 L Lymph # (Auto) 0.4 L [place] # (Auto) 0.2 Eos # (Auto) 0.0 Baso # (Auto) 0.0 WBC Differential Manual diff final Seg Neuts % (Manual) 67 Band Neuts % (Manual) 2 Lymphocytes % (Manual) 24 Monocytes % (Manual) 7 Abs Neuts (Manual) 1.2 L Differential Comment . Platelet Estimate Normal Platelet Morphology Normal Ovalocytes 1+ H Sodium 141 Potassium 3.2 L Chloride 107 Carbon Dioxide 26.3 Anion Gap 8 BUN 4 L Creatinine 0.63 Estimated GFR Greater than 89 POC Glucose 112 H Random Glucose 116 H Calcium 6.8 L* Calcium Adj for Albumin 9.0 Albumin 1.3 L - Imaging Imaging: ITS Impressions Chest CTA 07/03/18 08:26 CONCLUSION: 1. No evidence of acute pulmonary emboli. 2. COPD 3. Minimal left lower lobe airspace disease characteristic of atelectasis 4. Hepatic steatosis 5. Otherwise stable evaluation. Chest X-Ray 07/03/18 08:26 CONCLUSION: COPD Stable chest without evidence of acute process. Assessment and Plan - Assessment (1) Unintentional weight loss Code(s): R63.4 - Abnormal weight loss Status: Acute Plan: 68 year old male with dysphagia; weight loss; in need to enteral feeding access -POD2 lap converted to open g tube -Tolerated trickle feed; advance as tolerated -Continue [employer] C[employer] NURSE rehab -Pain control---added liquid oxycodone -Transfer to 7N when bed available Improved; wound dressing dry and intact As above; discussed with patient The exam, history, and the medical decision-making described in the above note were completed with the assistance of the mid-level provider. I reviewed and agree with the findings presented. I attest that I had a [id number] encounter with the patient on the same day, and personally performed and documented my assessment and findings in the medical record.
[2018-07-08] MEDS: Pantoprazole Inj 40 MG Vial IV.PUSH SCH (17:26)
[2018-07-08] MEDS: Enoxaparin Inj 60 MG/0.6 ML Syringe SQ SCH (23:15)
[2018-07-09] MEDS: Dextrose 5%/Lactated Ringer's 1,000 ML IV.CONT SCH ×4 (05:21→16:18)
--- NOTE | 2018-07-09 09:14 | P.PNIM ---
Subjective Interval history: Patient seen and examined this morning. Temperature 100.3, pulse 95, respiratory rate 18, blood pressure 113/74 pulse ox 94 on room air. He is lying in bed comfortably sleeping when I arrived. Reports some lower back pain but otherwise his abdominal pain is improving. Admits to some nausea but no vomiting. Denies any chest pain or shortness of breath. Physical Exam Vital signs: Vital Signs 07/08/18 09:31 07/08/18 09:54 07/08/18 10:00 Temperature Pulse Rate 124 H 143 H 115 H Respiratory Rate 16 22 24 Blood Pressure 131/92 H 124/85 117/85 Pulse Oximetry 93 L 95 96 07/08/18 10:02 07/08/18 10:32 07/08/18 11:00 Temperature Pulse Rate 139 H 114 H 101 H Respiratory Rate 16 12 14 Blood Pressure 123/84 132/95 H Pulse Oximetry 94 L 95 92 L 07/08/18 11:02 07/08/18 11:28 07/08/18 11:32 Temperature Pulse Rate 101 H 97 H Respiratory Rate 14 14 15 Blood Pressure 114/80 118/80 Pulse Oximetry 93 L 96 07/08/18 12:00 07/08/18 12:02 07/08/18 16:00 Temperature 100.5 F H 98.4 F Pulse Rate 103 H 98 H 93 H Respiratory Rate 12 11 L 16 Blood Pressure 118/84 113/79 Pulse Oximetry 95 94 L 07/08/18 18:00 07/08/18 20:00 07/09/18 00:00 Temperature 99.8 F H 98.6 F Pulse Rate 93 H 94 H 102 H Respiratory Rate 20 20 Blood Pressure 111/77 106/71 Pulse Oximetry 95 93 L 07/09/18 04:00 Temperature 100.3 F H Pulse Rate 95 H Respiratory Rate 18 Blood Pressure 113/74 Pulse Oximetry 94 L Intake & Output 07/08/18 07/09/18 07/09/18 18:59 06:59 18:59 Intake Total 1999 1050 / 1050 Output Total 150 / 150 450 / 450 Balance 1850 / 1850 600 / 600 Weight 74.8 kg Intake: IV 1999 1050 / 1050 D5W/LR Inj 1,000 ML @ 125 mls/ 1999 1000 / 1000 hr IV.CONT .Q8H [facility] Rx#: [id number] Output: Urine 150 / 150 Urine Amount (Catheter) 450 / 450 Indwelling Urethral Catheter 450 / 450 Other: Date of Last Bowel Movement 07/05/18 07/08/18 Narrative: GEN: Well-developed, well-nourished patient. No acute distress. CV: Regular rate and rhythm without obvious murmurs LUNGS: Clear to auscultation bilaterally. Normal respiratory effort. No wheezes , rales, rhonchi. GI: Soft, nontender, nondistended. No palpable masses. Bowel sounds WNL. Tube in place and incision is clean dry and intact. EXT: No edema. NEURO/PSYCH: Afocal. Awake, alert, and oriented x3. Appropriate insight and judgment. - Urinary Catheter Management Indwelling Urethral Catheter Cath placed during this visit: yes Urethral indwelling: No Reason for continuing: Hourly intake/output Insertion date: 07/06/18 Results - Labs CBC & Chem 7: 07/08/18 06:01 07/08/18 06:01 Laboratory Results - last 24 hr 07/06/18 23:20 MTS Gel Crossmatch See Detail - Procedures G-tube placed on 07/06/18 Assessment and Plan - Assessment (1) Unintentional weight loss Code(s): R63.4 - Abnormal weight loss Status: Acute (2) Dysphagia Code(s): R13.10 - Dysphagia, unspecified Status: Acute - Plan This is a 68 years old thin appearing male with past medical history of hypertension, PE, GERD, COPD presents to the emergency room with difficulty swallowing for 3 days, generalized weakness and pain radiating to his back and neck. Dysphagia With odynophagia likely etiology of his chest discomfort. S/p EGD by GI which was normal. -continue proton pump inhibitor. -s/p Open G tube placement by General Surgery (07/06/2018). -Gen Surgery started tube feed - currently at 10mL/hour. Acute blood loss anemia post open G tube surgery -Hgb dropped from 10.8 --> 7.6. -Received 1 unit of PRBCs. Currently, resolved, Hgb 10.6. Severe protein calorie malnutrition With significant weight loss and emaciation -Likely due to dysphasia and depression. -History of gastric bypass -nutrition and speech following Atrial fibrillation -Heart rate in the 120s range. Will start metoprolol 25mg Q8hrs. -Xarelto when okay with surgery. Recent history of PE -In February 2018, patient was diagnosed with small PE -When okay with General surgery, we will start him back on Xarelto. Chronic pain syndrome multiple back surgery history -opiate dependence on chronic [place] at home. Full code. Will start Xarelto when okay with Surgery. Code Status: Full Discharge Planning: Pending further workup by general surgery and clearance
[2018-07-09] MEDS: Metoprolol Tartrate 25 MG Tablet G-TUBE SCH ×3 (09:34→17:48)
[2018-07-09] MEDS: Enoxaparin Inj 60 MG/0.6 ML Syringe SQ SCH ×3 (09:34→21:19)
[2018-07-09] MEDS: Sodium Chloride 0.9% 2 ML Flush BID IV.FLUSH SCH ×3 (09:36→21:19)
--- NOTE | 2018-07-09 16:02 | P.PNGS ---
Subjective Patient reports: feels better, pain is less, other (Tube feeds at 50 cc an hour) Interval history: DAILY PROGRESS NOTE FOR SURGICAL ATTENDING, DR. ARASELI GOMEZ Sitting up in bed No complaints Physical Exam Vital signs: Vital Signs 07/08/18 18:00 07/08/18 20:00 07/09/18 00:00 Temperature 99.8 F H 98.6 F Pulse Rate 93 H 94 H 102 H Respiratory Rate 20 20 Blood Pressure 111/77 106/71 Pulse Oximetry 95 93 L 07/09/18 04:00 07/09/18 08:00 07/09/18 09:10 Temperature 100.3 F H 99.2 F Pulse Rate 95 H 98 H Respiratory Rate 18 20 Blood Pressure 113/74 108/80 Pulse Oximetry 94 L 93 L 92 L Intake & Output 07/08/18 07/09/18 07/09/18 18:59 06:59 18:59 Intake Total 1999 1050 / 1050 3000 / 3000 Output Total 150 / 150 450 / 450 Balance 1850 / 1850 600 / 600 3000 / 3000 Weight 74.8 kg Intake: IV 1999 1050 / 1050 3000 / 3000 D5W/LR Inj 1,000 ML @ 125 mls/ 2000 / 2000 1000 / 1000 3000 / 3000 hr IV.CONT .Q8H [facility] Rx#: [id number] Output: Urine 150 / 150 Urine Amount (Catheter) 450 / 450 Indwelling Urethral Catheter 450 / 450 Other: Date of Last Bowel Movement 07/05/18 07/08/18 07/08/18 Narrative: Sitting on the bed Midline wound healing feeding tube functional - Urinary Catheter Management Indwelling Urethral Catheter Cath placed during this visit: yes Urethral indwelling: No Reason for continuing: Hourly intake/output Insertion date: 07/06/18 Results - Labs 07/08/18 06:01 07/08/18 06:01 Laboratory Results - last 24 hr 07/06/18 23:20 MTS Gel Crossmatch See Detail - Imaging Imaging: ITS Impressions Chest CTA 07/03/18 08:26 CONCLUSION: 1. No evidence of acute pulmonary emboli. 2. COPD 3. Minimal left lower lobe airspace disease characteristic of atelectasis 4. Hepatic steatosis 5. Otherwise stable evaluation. Chest X-Ray 07/03/18 08:26 CONCLUSION: COPD Stable chest without evidence of acute process. Assessment and Plan - Assessment (1) Unintentional weight loss Code(s): R63.4 - Abnormal weight loss Status: Acute Plan: 68 year old male with dysphagia; weight loss; in need to enteral feeding access -PO lap converted to open g tube -Tolerated 50 cc an hour; advance as tolerated -Continue [employer] MA[employer] rehab -Pain control---added liquid oxycodone Start Xarelto tomorrow - Attending Attestation NOTE FOR SURGICAL ATTENDING, DR. ARASELI GOMEZ I attest that I had a [id number] encounter with the patient on the same day, and personally performed and documented my assessment and findings in the medical record. The following services were provided during this hospital visit: Chart data review, vital sign assessments/reviewing monitor data Review of consultations notes if present. Medication orders/review and/or management Ordering and/or reviewing lab tests Ordering and/or interpreting/reviewing x-rays and/or diagnostic studies Care of the patient and discussion of the patient with the care team Documentation time To help prompt me to consider important information that might be impacting today's encounter and assessment, Information from prior notes written by myself or my colleagues may have been "brought forward/copy and pasted" into today's note.
[2018-07-09] MEDS: Pantoprazole Inj 40 MG Vial IV.PUSH SCH (16:19)
[2018-07-10] MEDS: Dextrose 5%/Lactated Ringer's 1,000 ML IV.CONT SCH (01:30)
--- NOTE | 2018-07-10 05:23 | XR ---
EXAM DATE: 07/10/2018 5:06 AM EST AGE/SEX: 68 years / Male INDICATIONS: Shortness of breath. CLINICAL DATA: This is the patient's subsequent encounter. Patient reports that signs and symptoms h ave been present for 4 - 6 days and indicates a pain score of 0/10. MEDICAL/SURGICAL HISTORY: Chronic obstructive pulmonary disease. Hypertension. Gastroesophage al reflux disease. Gastric bypass. Cholecystectomy. COMPARISON: [facility], CHEST 1V SINGLE AP, 07/03/2018. . FINDINGS: The heart size is normal. The lungs demonstrate diffuse alveolar density. There is silhouetting the h emidiaphragms. CONCLUSION: Diffuse consolidation likely related to diffuse processes such as edema. Some degree of effusions may also be present. Electronically signed by: Joby Pepper MD Board Certified Radiologist 07/10/2018 5:21 AM EST
[2018-07-10 05:25] LABS: Bacteria,Urine Moderate /hpf; Bilirubin,Urine Negative (Negative); Clarity,Urine Cloudy (Clear); Color,Urine Amber (Yellw/Straw); Glucose,Urine (UA) Negative (Negative); Leukocyte Esterase,Urine Large (Negative); Mucus,Urine Many /lpf (Occasional); Nitrite,Urine Negative (Negative); Specific Gravity,Urine 1.018 (1.002-1.035); Squamous Epithelial Cell,Urine 1 /hpf (0-5)
[2018-07-10 05:53] LABS: Baso % (Auto) 0.3 % (0.0-2.0); Eos % (Auto) 0.2 % (0.0-4.0); Hematocrit 30.1 % (39.0-51.0); Hemoglobin 10.5 gm/dL (13.0-17.0); Lymph # (Auto) 0.6 th/mm3 (1.0-4.8); Lymph % (Auto) 7.6 % (9.0-44.0); Mean Corpuscular HGB Conc 34.9 % (32.0-36.0); Mean Corpuscular Hemoglobin 32.7 pg (27.0-34.0); Mean Corpuscular Volume 93.6 fL (80.0-100.0); Mean Platelet Volume 8.5 fL (7.0-11.0); Mono # (Auto) 0.5 th/mm3 (0.0-0.9); Mono % (Auto) 5.6 % (0.0-8.0); Neut # (Auto) 6.9 th/mm3 (1.8-7.7); Neut % (Auto) 86.3 % (16.0-70.0); Platelet Count 195 th/mm3 (150-450); Red Blood Count 3.21 mil/mm3 (4.50-5.90)
[2018-07-10 06:26] LABS: Alanine Aminotransferase 19 U/L (12-78); Albumin 1.2 g/dL (3.4-5.0); Alkaline Phosphatase 125 U/L (45-117); Anion Gap 5 meq/L (5-15); Aspartate Aminotransferase 15 U/L (15-37); Blood Urea Nitrogen 11 mg/dL (7-18); Calcium 7.2 mg/dL (8.5-10.1); Carbon Dioxide 28.8 meq/L (21.0-32.0); Chloride 108 meq/L (98-107); Glomerular Filtration Rate Greater Than 89 mL/min (>89); Glucose,Random 97 mg/dL (74-106); Potassium 3.7 meq/L (3.5-5.1); Sodium 142 meq/L (136-145); Total Protein 4.6 g/dL (6.4-8.2)
[2018-07-10] MEDS: Enoxaparin Inj 60 MG/0.6 ML Syringe SQ SCH ×2 (08:55→20:36)
[2018-07-10] MEDS: Metoprolol Tartrate 25 MG Tablet G-TUBE SCH ×3 (08:55→17:13)
[2018-07-10] MEDS: Sodium Chloride 0.9% 2 ML Flush BID IV.FLUSH SCH ×2 (08:56→20:36)
[2018-07-10] MEDS: HYDROmorphone PF Inj 2 MG/ML Vial IV.PUSH PRN (10:38)
--- NOTE | 2018-07-10 15:08 | P.PNIM ---
Subjective Interval history: 68-year-old male admitted for dysphagia, anemia, urinary tract infection. He underwent a G-tube placement yesterday and is recovering postop. He reported some shortness of breath overnight and IV fluids were stopped. He states he is still not breathing at his baseline. Physical Exam Vital signs: Last Vital Signs Temp 97.6 F 07/10/18 12:00 Pulse 91 H 07/10/18 12:00 Resp 20 07/10/18 12:00 BP 113/69 07/10/18 12:00 Pulse Ox 94 L 07/10/18 14:56 Intake & Output 07/08/18 07/09/18 07/10/18 07/11/18 06:59 06:59 06:59 06:59 Intake Total 3121 / 3121 3050 / 3050 5666 / 5666 Output Total 750 / 750 600 / 600 525 / 525 500 / 500 Balance 2371 / 2371 2450 / 2450 5141 / 5141 -500 / -500 Weight 81.4 kg 74.8 kg 74.6 kg Narrative: GENERAL: AAOx3, no acute distress, generally weak SKIN: Warm and dry. No rashes HEAD: Atruamtic, normocephalic. EYES: No scleral icterus. No injection or drainage. ENT: Moist mucous membranes, patent nares, no erythema of oropharynx. NECK: Supple, trachea midline. No JVD or lymphadenopathy. Normal thyroid. CARDIOVASCULAR: Regular rate and rhythm. No murmurs, gallops, or rubs. RESPIRATORY: Scattered congestive sounds in bilateral bases. No crackles or wheezes. No accessory muscle use. GASTROINTESTINAL: Abdomen soft, non-tender, nondistended, normal active bowel sounds MUSCULOSKELETAL: 2+ edema in bilateral ankles NEURO: CN II-XII grossly intact, no focal deficits, no slurring of speech Urinary Catheter Management Indwelling Urethral Catheter: Cath placed during this visit: yes Urethral indwelling: No Insertion date: 07/06/18 Results Labs CBC & Chem 7: 07/10/18 05:25 07/10/18 05:29 Imaging Imaging: Impressions Chest X-Ray 07/10/18 00:00 CONCLUSION: Diffuse consolidation likely related to diffuse processes such as edema. Some degree of effusions may also be present. Procedures Procedures: G-tube placed on 07/06/18 Assessment and Plan (1) Unintentional weight loss: Code(s): R63.4 - Abnormal weight loss Status: Acute Plan 68 years old male with past medical history of hypertension, PE, GERD, COPD presents to the emergency room with difficulty swallowing for 3 days, generalized weakness and back pain. Dysphagia w/ odynophagia s/p EGD by GI, results were normal G-tube placement by general surgery 07/06/2018 Continue with G-tube feeds Continue proton pump inhibitor Continue postop care Appreciate general surgery Anemia Patient experienced a drop in hemoglobin following surgery, single unit PRBC given, now stable at Hgb 10.5 Generalized weakness Likely from caloric malnutrition due to inability to swallow secondary to odynophagia and dysphagia Patient has history of gastric bypass Continue with G-tube feeds Appreciate nutrition and speech therapy following Severe protein calorie malnutrition With significant weight loss and emaciation Atrial fibrillation Heart rate previously in the 120 range, responded to metoprolol 25 mg every 8 hours Resume Xarelto with morning meds Recent history of PE In February 2018, patient was diagnosed with small PE Resume Xarelto with morning meds Chronic pain syndrome multiple back surgery history Continue home dose of [place] DVT prophylaxis Xarelto Discharge planning Patient will likely need rehab placement Progress Note: Quality VTE Deep Vein Thrombosis/Pulmonary Embolism Present on Admission: No
[2018-07-10] MEDS: Pantoprazole Inj 40 MG Vial IV.PUSH SCH (17:14)
--- NOTE | 2018-07-10 19:02 | P.PN ---
Subjective Interval history: Sore but tolerating tube feeding. Nauseous as per usual. (This is not new) Physical Exam Vital signs: Vital Signs 07/09/18 20:00 07/09/18 23:55 07/10/18 00:00 Temperature 99.7 F H 98.1 F Pulse Rate 99 H 95 H 98 H Respiratory Rate 18 20 Blood Pressure 109/76 120/81 Pulse Oximetry 92 L 91 L 07/10/18 03:18 07/10/18 04:00 07/10/18 04:42 Temperature 101.1 F H Pulse Rate 103 H Respiratory Rate 17 18 Blood Pressure 121/79 Pulse Oximetry 90 L 90 L 07/10/18 07:37 07/10/18 08:00 07/10/18 09:02 Temperature 97.4 F L Pulse Rate 101 H Respiratory Rate 20 Blood Pressure 111/78 Pulse Oximetry 94 L 95 96 07/10/18 09:19 07/10/18 12:00 07/10/18 14:56 Temperature 97.6 F Pulse Rate 101 H 91 H Respiratory Rate 20 20 Blood Pressure 113/69 Pulse Oximetry 94 L 94 L 07/10/18 16:00 Temperature 98.9 F Pulse Rate 92 H Respiratory Rate 20 Blood Pressure 124/90 Pulse Oximetry 93 L Intake & Output 07/10/18 07/10/18 07/11/18 06:59 18:59 06:59 Intake Total 2005 1350 / 1350 Output Total 150 / 150 1000 / 1000 Balance 1856 / 1856 350 / 350 Weight 74.6 kg Intake: IV 1375 / 1375 D5W/LR Inj 1,000 ML @ 125 mls/ 1375 / 1375 hr IV.CONT .Q8H [facility] Rx#: [id number] Oral 0 / 0 Tube Feeding 581 / 581 1000 / 1000 Tube Irrigant 50 / 50 350 / 350 Output: Urine 150 / 150 Urine Amount (Catheter) 1000 / 1000 Indwelling Urethral Catheter 1000 / 1000 - Constitutional no acute distress - Routine Abdominal Exam Present: soft, wound (Minimal drainage) - Urinary Catheter Management Indwelling Urethral Catheter Cath placed during this visit: yes Urethral indwelling: No Reason for continuing: Chronic Urinary Retention Insertion date: 07/06/18 Results - Labs CBC & Chem 7: 07/10/18 05:25 07/10/18 05:29 Laboratory Results - last 24 hr 07/10/18 07/10/18 07/10/18 04:45 05:25 05:29 WBC 8.0 RBC 3.21 L Hgb 10.5 L Hct 30.1 L MCV 93.6 MCH 32.7 MCHC 34.9 RDW 17.0 Plt Count 195 MPV 8.5 Neut % (Auto) 86.3 H Lymph % (Auto) 7.6 L [place] % (Auto) 5.6 Eos % (Auto) 0.2 Baso % (Auto) 0.3 Neut # (Auto) 6.9 Lymph # (Auto) 0.6 L [place] # (Auto) 0.5 Eos # (Auto) 0.0 Baso # (Auto) 0.0 WBC Differential . Differential Comment Auto diff final Sodium 142 Potassium 3.7 Chloride 108 H Carbon Dioxide 28.8 Anion Gap 5 BUN 11 Creatinine 0.68 Estimated GFR Greater than 89 Random Glucose 97 Calcium 7.2 L* Calcium Adj for Albumin 9.4 Total Bilirubin 0.6 AST 15 ALT 19 Alkaline Phosphatase 125 H B-Natriuretic Peptide Total Protein 4.6 L Albumin 1.2 L Urine Color [place] Urine Clarity Cloudy H Urine pH 5.0 Ur Specific [place] 1.018 Urine Protein 30 H Urine Glucose (UA) Negative Urine Ketones Negative Urine Occult Blood Large H Urine Nitrate Negative Urine Bilirubin Negative Urine Urobilinogen Less than 2 Ur Leukocyte Esterase Large H Urine RBC 27 H Urine WBC Urine WBC Clumps Occasional H Ur Squamous Epith Cells 1 Urine Bacteria Moderate H Urine Mucus Many H Micro UA Comment Cath-culture ind Ur Microscopic Review Not Reportable Urine Culture Comments Cath-cult indicated 07/10/18 05:29 WBC RBC Hgb Hct MCV MCH MCHC RDW Plt Count MPV Neut % (Auto) Lymph % (Auto) [place] % (Auto) Eos % (Auto) Baso % (Auto) Neut # (Auto) Lymph # (Auto) [place] # (Auto) Eos # (Auto) Baso # (Auto) WBC Differential Differential Comment Sodium Potassium Chloride Carbon Dioxide Anion Gap BUN Creatinine Estimated GFR Random Glucose Calcium Calcium Adj for Albumin Total Bilirubin AST ALT Alkaline Phosphatase B-Natriuretic Peptide 286 H Total Protein Albumin Urine Color Urine Clarity Urine pH Ur Specific [place] Urine Protein Urine Glucose (UA) Urine Ketones Urine Occult Blood Urine Nitrate Urine Bilirubin Urine Urobilinogen Ur Leukocyte Esterase Urine RBC Urine WBC Urine WBC Clumps Ur Squamous Epith Cells Urine Bacteria Urine Mucus Micro UA Comment Ur Microscopic Review Urine Culture Comments - Imaging Impressions Chest X-Ray 07/10/18 00:00 CONCLUSION: Diffuse consolidation likely related to diffuse processes such as edema. Some degree of effusions may also be present. - Procedures G-tube placed on 07/06/18 Assessment and Plan - Assessment (1) Unintentional weight loss Code(s): R63.4 - Abnormal weight loss Status: Acute - Plan Tube feeding at target rate; can be discharged to rehab in the next couple of days if he continues to tolerate feedings. He has already moved his bowels. - Attending Attestation I attest that I had a [id number] encounter with the patient on the same day, and personally performed and documented my assessment and findings in the medical record. The following services were provided during this hospital visit: Chart data review, vital sign assessments/reviewing monitor data Review of consultation notes if present Medication orders/review and/or management Ordering and/or reviewing lab tests Ordering and/or interpreting/reviewing x-rays and/or diagnostic studies Care of the patient and discussion of the patient with the care team Documentation time To help prompt me to consider important information that might be impacting today's encounter and assessment, Information from prior notes written by myself or my colleagues may have been "brought forward/copy and pasted" into today's note.
[2018-07-11 08:11] LABS: Anion Gap 4 meq/L (5-15); Blood Urea Nitrogen 16 mg/dL (7-18); Calcium 7.1 mg/dL (8.5-10.1); Carbon Dioxide 30.9 meq/L (21.0-32.0); Chloride 106 meq/L (98-107); Glomerular Filtration Rate Greater Than 89 mL/min (>89); Glucose,Random 95 mg/dL (74-106); Potassium 3.6 meq/L (3.5-5.1); Sodium 141 meq/L (136-145)
[2018-07-11 08:20] LABS: Calcium-Albumin Corrected 9.5 mg/dL (8.5-10.1)
[2018-07-11] MEDS: Enoxaparin Inj 60 MG/0.6 ML Syringe SQ SCH ×2 (08:56→21:06)
[2018-07-11] MEDS: Sodium Chloride 0.9% 2 ML Flush BID IV.FLUSH SCH ×2 (08:57→21:06)
[2018-07-11] MEDS: Metoprolol Tartrate 25 MG Tablet G-TUBE SCH ×3 (09:00→19:04)
--- NOTE | 2018-07-11 12:04 | P.PNIM ---
Subjective Interval history: Patient states he feels about as poorly as he did yesterday, notes no difference in his breathing. He is generally weak from. Odynophagia resulted in decreased appetite, generalized weakness, dehydration and urinary tract infection. Physical Exam Vital signs: Last Vital Signs Temp 98.6 F 07/11/18 08:00 Pulse 90 07/11/18 09:30 Resp 16 07/11/18 09:30 BP 101/69 07/11/18 08:00 Pulse Ox 92 L 07/11/18 09:30 Intake & Output 07/09/18 07/10/18 07/11/18 07/12/18 06:59 06:59 06:59 06:59 Intake Total 3050 / 3050 5666 / 5666 1750 / 1750 Output Total 600 / 600 525 / 525 1974 Balance 2450 / 2450 5141 / 5141 -225 / -225 Weight 74.8 kg 74.6 kg 78 kg Narrative: GENERAL: AAOx3, no acute distress, generally weak SKIN: Warm and dry. No rashes HEAD: Atruamtic, normocephalic. EYES: No scleral icterus. No injection or drainage. ENT: Moist mucous membranes, patent nares, no erythema of oropharynx. NECK: Supple, trachea midline. No JVD or lymphadenopathy. Normal thyroid. CARDIOVASCULAR: Regular rate and rhythm. No murmurs, gallops, or rubs. RESPIRATORY: Scattered congestive sounds in bilateral bases. No crackles or wheezes. No accessory muscle use. GASTROINTESTINAL: Abdomen soft, non-tender, nondistended, normal active bowel sounds MUSCULOSKELETAL: 1+ edema in bilateral ankles, arm edema resolved NEURO: CN II-XII grossly intact, no focal deficits, no slurring of speech Urinary Catheter Management Indwelling Urethral Catheter: Cath placed during this visit: yes Urethral indwelling: No Insertion date: 07/06/18 Results Labs CBC & Chem 7: 07/10/18 05:25 07/11/18 06:28 Labs: Microbiology 07/10/18 04:45 Catheterized Urine Urine Culture - Preliminary Pseudomonas species 07/10/18 05:29 Blood - Peripheral Aerobic Blood Culture - Preliminary No growth in 1 day 07/10/18 05:29 Blood - Peripheral Anaerobic Blood Culture - Preliminary No growth in 1 day 07/10/18 05:25 Blood - Peripheral Aerobic Blood Culture - Preliminary No growth in 1 day 07/10/18 05:25 Blood - Peripheral Anaerobic Blood Culture - Preliminary No growth in 1 day Procedures Procedures: G-tube placed on 07/06/18 Assessment and Plan (1) Unintentional weight loss: Code(s): R63.4 - Abnormal weight loss Status: Acute Plan 68 years old male with past medical history of hypertension, PE, GERD, COPD presents to the emergency room with difficulty swallowing for 3 days, generalized weakness and back pain. Dysphagia w/ odynophagia s/p EGD by GI, results were normal G-tube placement by general surgery 07/06/2018 Continue with G-tube feeds, postop care Continue proton pump inhibitor Appreciate general surgery Anemia Downward trend of hemoglobin following surgery that was corrected by single unit of PRBCs Hemoglobin remained stable at 10.5 Dyspnea Had an episode of dyspnea 2 nights ago, seems to be related to fluid overload And was diuresed yesterday and has had about 50% improvement Continuing Lasix twice daily for today Reevaluate in the morning, continue supplemental oxygen Generalized weakness Likely from caloric malnutrition due to inability to swallow secondary to odynophagia and dysphagia Patient has history of gastric bypass Continue with G-tube feeds Appreciate nutrition and speech therapy following Severe protein calorie malnutrition with significant weight loss Atrial fibrillation Heart rate previously in the 120 range, responded to metoprolol 25 mg every 8 hours Continuing Xarelto Recent history of PE In February 2018, patient was diagnosed with small PE Continue Xarelto Chronic pain syndrome multiple back surgery history Continue home dose of [place] DVT prophylaxis Xarelto Discharge planning Patient will likely need rehab placement Progress Note: Quality VTE Deep Vein Thrombosis/Pulmonary Embolism Present on Admission: No
--- NOTE | 2018-07-11 15:19 | P.PNGS ---
Subjective Interval history: Patient not feeling any better today No energy Physical Exam Vital signs: Vital Signs 07/10/18 16:00 07/10/18 20:00 07/10/18 20:12 Temperature 98.9 F 99.3 F Pulse Rate 92 H 91 H 82 Respiratory Rate 20 18 18 Blood Pressure 124/90 109/73 Pulse Oximetry 93 L 91 L 92 L 07/11/18 00:00 07/11/18 04:00 07/11/18 08:00 Temperature 97.8 F 97.9 F 98.6 F Pulse Rate 88 86 82 Respiratory Rate 18 18 16 Blood Pressure 104/69 99/71 L 101/69 Pulse Oximetry 96 99 90 L 07/11/18 09:30 07/11/18 12:00 07/11/18 12:01 Temperature 98.0 F Pulse Rate 90 97 H Respiratory Rate 16 19 Blood Pressure 87/60 L 96/62 L Pulse Oximetry 92 L 92 L 07/11/18 13:11 07/11/18 13:25 Temperature 98.0 F Pulse Rate 96 H 97 H Respiratory Rate 16 19 Blood Pressure 87/60 L Pulse Oximetry 92 L Intake & Output 07/10/18 07/11/18 07/11/18 18:59 06:59 18:59 Intake Total 1350 / 1350 400 / 400 Output Total 1000 / 1000 975 / 975 125 / 125 Balance 350 / 350 -575 / -575 -125 / -125 Weight 78 kg Intake: Tube Feeding 1000 / 1000 300 / 300 Tube Irrigant 350 / 350 Water Bolus Amount 100 / 100 Output: Urine 975 / 975 Urine Amount (Catheter) 1000 / 1000 125 / 125 Indwelling Urethral Catheter 1000 / 1000 125 / 125 Other: # Incontinent Voids 1 Narrative: Alert and awake; sad Abd: subcostal incision c/d/i with corina; G tube with TF; flat abdomen - Urinary Catheter Management Indwelling Urethral Catheter Cath placed during this visit: yes Urethral indwelling: No Reason for continuing: Chronic Urinary Retention Insertion date: 07/06/18 Results - Labs 07/14/18 05:03 07/14/18 05:03 Laboratory Results - last 24 hr 07/10/18 07/11/18 04:45 06:28 Sodium 141 Potassium 3.6 Chloride 106 Carbon Dioxide 30.9 Anion Gap 4 L BUN 16 Creatinine 0.68 Estimated GFR Greater than 89 Random Glucose 95 Calcium 7.1 L* Calcium Adj for Albumin 9.5 Albumin 1.0 L Urine Color Fanny Urine Clarity Cloudy H Urine pH 5.0 Ur Specific [place] 1.018 Urine Protein 30 H Urine Glucose (UA) Negative Urine Ketones Negative Urine Occult Blood Large H Urine Nitrate Negative Urine Bilirubin Negative Urine Urobilinogen Less than 2 Ur Leukocyte Esterase Large H Urine RBC 27 H Urine WBC Urine WBC Clumps Occasional H Ur Squamous Epith Cells 1 Urine Bacteria Moderate H Urine Mucus Many H Micro UA Comment Cath-culture ind Urine Culture Comments Cath-cult indicated - Imaging Imaging: ITS Impressions Chest CTA 07/03/18 08:26 CONCLUSION: 1. No evidence of acute pulmonary emboli. 2. COPD 3. Minimal left lower lobe airspace disease characteristic of atelectasis 4. Hepatic steatosis 5. Otherwise stable evaluation. Chest X-Ray 07/10/18 00:00 CONCLUSION: Diffuse consolidation likely related to diffuse processes such as edema. Some degree of effusions may also be present. 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 I reviewed and agree with the findings presented. I attest that I had a [id number] encounter with the patient on the same day, and personally performed and documented my assessment and findings in the medical record.
[2018-07-11] MEDS: Pantoprazole Inj 40 MG Vial IV.PUSH SCH (15:38)
--- NOTE | 2018-07-11 15:39 | XR ---
EXAM DATE: 07/11/2018 3:32 PM EST AGE/SEX: 68 years / Male INDICATIONS: Short of breath. CLINICAL DATA: This is the patient's subsequent encounter. Patient reports that signs and symptoms h ave been present for 4 - 6 days and indicates a pain score of Nonresponsive. MEDICAL/SURGICAL HISTORY: . Chronic obstructive pulmonary disease. Hypertension. Gastroesophage al reflux disease. . Gastric bypass. Cholecystectomy. [place] [facility] [place]. . FINDINGS: Study is abnormal. Heart is enlarged. Moderate interstitial edema is present. Patient probably has mo derate right pleural effusions on the supine film. There is no pneumothorax. CONCLUSION: Presumed congestive failure with bilateral pleural effusion. Electronically signed by: Skip Alvarez MD Board Certified Radiologist 07/11/2018 3:37 PM EST
[2018-07-11 17:05] LABS: Hematocrit 25.6 % (39.0-51.0); Hemoglobin 8.7 gm/dL (13.0-17.0); Mean Corpuscular Hemoglobin 32.9 pg (27.0-34.0); Mean Corpuscular Volume 96.8 fL (80.0-100.0); Mean Platelet Volume 8.5 fL (7.0-11.0); Platelet Count 147 th/mm3 (150-450); Red Blood Count 2.64 mil/mm3 (4.50-5.90); Red Cell Distribution Width 16.4 % (11.6-17.2)
[2018-07-11 17:30] LABS: Anion Gap 5 meq/L (5-15); Blood Urea Nitrogen 18 mg/dL (7-18); Calcium 6.9 mg/dL (8.5-10.1); Carbon Dioxide 32.3 meq/L (21.0-32.0); Chloride 106 meq/L (98-107); Glomerular Filtration Rate Greater Than 89 mL/min (>89); Glucose,Random 100 mg/dL (74-106); Potassium 3.6 meq/L (3.5-5.1); Sodium 143 meq/L (136-145)
[2018-07-11 17:47] LABS: Lymphocytes 2 % (9-44); Monocytes 1 % (0-8); Platelet Estimate Normal (Normal); Platelet Morphology Normal (Normal)
[2018-07-11 17:48] LABS: Target Cells 1+
[2018-07-11 17:58] LABS: Calcium-Albumin Corrected 9.3 mg/dL (8.5-10.1)
[2018-07-11] MEDS: HYDROmorphone PF Inj 2 MG/ML Vial IV.PUSH PRN (23:01)
[2018-07-11] MEDS ORDERED: Metoprolol Tartrate 25 MG Tablet PO ONE (23:16)
[2018-07-11] MEDS ORDERED: Sodium Chlor 0.9% Inj 500 ML IV.SIG ONE (23:36)
--- NOTE | 2018-07-12 00:23 | P.PNADD ---
Addendum to Inpatient Note Reason for Addendum: Additional Documentation Additional information: S: MaxwellIleana called on this patient. Resident team received a call from call center at 11:45 PM. Patient is a 68-year-old man with a history of A. fib status post ablation about 12 years ago on daily Lopressor who did not get his Lopressor 25 mg 3 times daily scheduled at all today because his blood pressure was too low. Cira was called for heart rate in the 160s. Hospitalist ERICA was contacted and she recommended giving Lopressor if systolic blood pressure was over 100. When Cira was called, patient had a blood pressure of 76/51, was satting in the 80s. Thus, a 500 cc IV fluid bolus was ordered by the hospitalist ERICA. Patient reports feeling some chest pain and lightheadedness. He denies any dyspnea greater than baseline. When I entered the room, his heart rate was in the 110s. While speaking to the patient, his heart rate elevated to the 140s. O: Vitals as noted above. GENERAL: Alert gentleman appears cachectic but in no acute distress SKIN: Warm and dry. No rashes HEAD: Atruamtic, normocephalic. EYES: No scleral icterus. No injection or drainage. ENT: Moist mucous membranes, patent nares, no erythema of oropharynx. NECK: Supple, trachea midline. No JVD or lymphadenopathy. Normal thyroid. CARDIOVASCULAR: Regular rate and rhythm. No murmurs, gallops, or rubs. RESPIRATORY: Some coarse breath sounds, but mostly clear to auscultation bilaterally. No accessory muscle use. GASTROINTESTINAL: Abdomen soft, non-tender, nondistended, normal active bowel sounds MUSCULOSKELETAL: No significant pitting edema of legs NEURO: CN II-XII grossly intact, no focal deficits, no slurring of speech A/P: Patient is a 68-year-old man with a history of A. fib who was prescribed Lopressor 25 mg through the G-tube 3 times daily scheduled but was unable to get this medication today because his blood pressure was too low had Cira called for tachycardia to the 160s. On exam, his heart rate is between 110s and 140s. Blood pressure at time of [facility] was 70s over 50s, which increased with 500 cc IV fluid bolus to 90s over 70s. -Stat troponin, EKG, IV fluid bolus as above. EKG showed a rate in the 140s, mostly regular narrow complex tachycardia -At one point, patient's sbp reached 100, so Lopressor 25 mg through the G-tube was given. After administration, heart rate remained in the 130s with a blood pressure in the 90s over 70s. s/d/w Dr. Miner
[2018-07-12 07:01] LABS: Hematocrit 21.7 % (39.0-51.0); Hemoglobin 7.5 gm/dL (13.0-17.0); Mean Corpuscular HGB Conc 34.6 % (32.0-36.0); Mean Corpuscular Hemoglobin 32.7 pg (27.0-34.0); Mean Corpuscular Volume 94.5 fL (80.0-100.0); Platelet Count 134 th/mm3 (150-450); White Blood Count 6.4 th/mm3 (4.0-11.0)
[2018-07-12 07:38] LABS: Anion Gap 4 meq/L (5-15); Blood Urea Nitrogen 20 mg/dL (7-18); Calcium 6.8 mg/dL (8.5-10.1); Chloride 105 meq/L (98-107); Glomerular Filtration Rate Greater Than 89 mL/min (>89); Glucose,Random 91 mg/dL (74-106); Potassium 3.6 meq/L (3.5-5.1); Sodium 144 meq/L (136-145)
[2018-07-12 08:03] LABS: Albumin 0.9 g/dL (3.4-5.0); Calcium-Albumin Corrected 9.3 mg/dL (8.5-10.1)
[2018-07-12] MEDS ORDERED: Digoxin Inj 500 MCG/2 ML Ampul IV.PUSH ONE (09:00)
--- NOTE | 2018-07-12 09:26 | XR ---
EXAM DATE: 07/12/2018 9:21 AM EST AGE/SEX: 68 years / Male INDICATIONS: Dyspnea. CLINICAL DATA: This is the patient's initial encounter. Patient reports that signs and symptoms have been present for 3 days and indicates a pain score of 6/10. MEDICAL/SURGICAL HISTORY: Hypertension. Cardiovascular disease. a-fib, pulmonary embolisms . cardiac ablation COMPARISON: [facility], CHEST 1V SINGLE AP, 07/11/2018. . FINDINGS: 2 AP views of the chest demonstrate a normal size cardiac silhouette. EKG lines overlie the patient. There are large bilateral pleural-parenchymal opacities, stable from the prior study. No pneumothorax is identified. The bones and soft tissues demonstrate no acute abnormality. CONCLUSION: Stable chest x-ray with bilateral opacities likely representing pleural effusions with associated vol ume loss and/or airspace consolidation. There are also lung changes suggesting pulmonary edema. Electronically signed by: Joby Montero MD Board Certified Radiologist 07/12/2018 9:24 AM EST
[2018-07-12] MEDS: Sodium Chloride 0.9% 2 ML Flush BID IV.FLUSH SCH ×2 (09:39→20:46)
[2018-07-12] MEDS: Enoxaparin Inj 60 MG/0.6 ML Syringe SQ SCH ×2 (09:40→20:46)
[2018-07-12] MEDS: Metoprolol Tartrate 25 MG Tablet G-TUBE SCH ×3 (09:41→18:47)
--- NOTE | 2018-07-12 14:45 | P.PNGS ---
Subjective Interval history: Resting in bed Nauseous-- just recently given Zofran Halicat overnight for increased oxygen requirements, hypotension and tachycardia. Given Digoxin. Patient now on 4L NC. CXR shows pulm edema Physical Exam Vital signs: Vital Signs 07/11/18 16:00 07/11/18 19:51 07/11/18 20:00 Temperature 98.5 F 98.3 F Pulse Rate 113 H 105 H 106 H Respiratory Rate 20 24 17 Blood Pressure 95/69 L 104/72 Pulse Oximetry 90 L 91 L 90 L 07/11/18 22:50 07/11/18 23:30 07/11/18 23:37 Temperature Pulse Rate 110 H 160 H Respiratory Rate 24 22 Blood Pressure 97/68 L 76/51 L Pulse Oximetry 90 L 95 88 L 07/11/18 23:49 07/11/18 23:55 07/12/18 00:00 Temperature 98.3 F Pulse Rate 106 H 144 H Respiratory Rate 16 24 Blood Pressure 99/67 L 100/66 Pulse Oximetry 90 L 98 92 L 07/12/18 04:00 07/12/18 08:00 07/12/18 08:58 Temperature 97.6 F 97.8 F Pulse Rate 100 H 97 H 87 Respiratory Rate 16 20 18 Blood Pressure 84/53 L 102/61 Pulse Oximetry 92 L 96 98 07/12/18 10:04 07/12/18 11:00 07/12/18 11:58 Temperature 98.2 F Pulse Rate 88 94 H 82 Respiratory Rate 20 16 Blood Pressure 94/56 L Pulse Oximetry 93 L Intake & Output 07/11/18 07/12/18 07/12/18 18:59 06:59 18:59 Intake Total 0 / 0 740 / 740 100 / 100 Output Total 725 / 725 1900 / 1900 Balance -725 / -725 -1160 / -1160 100 / 100 Weight 78 kg Intake: IV 500 / 500 100 / 100 NS Inj 500 ML @ Wide Open IV. 500 / 500 SIG BOLUS ONE Rx#:[id number] Rocephin Inj 1,000 MG In NS Inj 100 / 100 100 ML @ 200 mls/hr IV.SIG Q24H KAMRAN Rx#:[id number] Oral 0 / 0 240 / 240 Output: Urine 600 / 600 1900 / 1900 Urine Amount (Catheter) 125 / 125 Indwelling Urethral Catheter 125 / 125 Other: # Incontinent Voids 1 Narrative: Alert and awake; cachetic Resp: Crackles Abd: RUQ incision with corina--- c/d/i; G tube in place with clean dressing - Urinary Catheter Management Indwelling Urethral Catheter Cath placed during this visit: yes, but has since been removed by the nurse Urethral indwelling: No Reason for continuing: Chronic Urinary Retention Insertion date: 07/06/18 Removal date: 07/11/18 Removal time: 12:25 Results - Labs 07/14/18 05:03 07/14/18 05:03 Laboratory Results - last 24 hr 07/11/18 07/11/18 07/12/18 16:47 16:47 01:08 WBC 9.0 RBC 2.64 L Hgb 8.7 L Hct 25.6 L MCV 96.8 MCH 32.9 MCHC 34.0 RDW 16.4 Plt Count 147 L MPV 8.5 Prelim Diff (Auto) Manual diff required WBC Differential Manual diff final Seg Neuts % (Manual) 94 H Band Neuts % (Manual) 3 Lymphocytes % (Manual) 2 L Monocytes % (Manual) 1 Abs Neuts (Manual) 8.7 H Differential Comment . Platelet Estimate Normal Platelet Morphology Normal Target Cells 1+ H Sodium 143 Potassium 3.6 Chloride 106 Carbon Dioxide 32.3 H Anion Gap 5 BUN 18 Creatinine 0.71 Estimated GFR Greater than 89 Random Glucose 100 Calcium 6.9 L* Calcium Adj for Albumin 9.3 Troponin I Less than 0.02 L Albumin 1.0 L 07/12/18 07/12/18 05:43 05:45 WBC 6.4 RBC 2.30 L Hgb 7.5 L Hct 21.7 L MCV 94.5 MCH 32.7 MCHC 34.6 RDW 16.0 Plt Count 134 L MPV 9.0 Prelim Diff (Auto) WBC Differential Seg Neuts % (Manual) Band Neuts % (Manual) Lymphocytes % (Manual) Monocytes % (Manual) Abs Neuts (Manual) Differential Comment Platelet Estimate Platelet Morphology Target Cells Sodium 144 Potassium 3.6 Chloride 105 Carbon Dioxide 35.0 H Anion Gap 4 L BUN 20 H Creatinine 0.69 Estimated GFR Greater than 89 Random Glucose 91 Calcium 6.8 L* Calcium Adj for Albumin 9.3 Troponin I Albumin 0.9 L - Imaging Imaging: ITS Impressions Chest CTA 07/03/18 08:26 CONCLUSION: 1. No evidence of acute pulmonary emboli. 2. COPD 3. Minimal left lower lobe airspace disease characteristic of atelectasis 4. Hepatic steatosis 5. Otherwise stable evaluation. Chest X-Ray 07/12/18 00:00 CONCLUSION: Stable chest x-ray with bilateral opacities likely representing pleural effusions with associated volume loss and/or airspace consolidation. There are also lung changes suggesting pulmonary edema. Assessment and Plan - Assessment (1) Unintentional weight loss Code(s): R63.4 - Abnormal weight loss Status: Acute Plan: 68 year old male with dysphagia; weight loss; in need to enteral feeding access -Pulm edema-- continue with diuresing -Hmg 7.5 ---likely will improve with continued diuresing -Discussed with Dr. 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 Franks Had drainage around feeding tube; cinched down and flushed with no leakage Continue enteral feeding I attest that I had a [id number] encounter with the patient on the same day, and personally performed and documented my assessment and findings in the medical record. The exam, history, and the medical decision-making described in the above note were completed with the assistance of the mid-level provider. I reviewed and agree with the findings presented. I attest that I had a [id number] encounter with the patient on the same day, and personally performed and documented my assessment and findings in the medical record.
[2018-07-12] MEDS ORDERED: Albumin Human 25% Inj 50 ML IV.SIG ONE (15:17)
--- NOTE | 2018-07-12 15:18 | P.PNIM ---
Subjective Interval history: Mr. Head appears weak and is feeling no better compared to yesterday. He had another episode of dyspnea and hypoxemia overnight dropping into the 80s. Edgaricat was called and he was given 500 mL bolus of IV fluids. Repeat chest x-ray shows ongoing presence of pulmonary edema. This combined with atrial fibrillation and hypotension is not so great. Additionally he has anemia with hemoglobin at 7.5 today. Physical Exam Vital signs: Last Vital Signs Temp 98.2 F 07/12/18 11:00 Pulse 82 07/12/18 11:58 Resp 16 07/12/18 11:58 BP 94/56 L 07/12/18 11:00 Pulse Ox 93 L 07/12/18 11:00 Intake & Output 07/10/18 07/11/18 07/12/18 07/13/18 06:59 06:59 06:59 06:59 Intake Total 5666 / 5666 1750 / 1750 740 / 740 100 / 100 Output Total 525 / 525 1974 / 1974 2625 / 2625 Balance 5141 / 5141 -225 / -225 -1885 / -1885 100 / 100 Weight 74.6 kg 78 kg 78 kg Narrative: GENERAL: AAOx3, no acute distress, generally very weak, emaciated SKIN: Warm and dry. No rashes HEAD: Atruamtic, normocephalic. EYES: No scleral icterus. No injection or drainage. ENT: Moist mucous membranes, patent nares, no erythema of oropharynx. NECK: Supple, trachea midline. No JVD or lymphadenopathy. Normal thyroid. CARDIOVASCULAR: Sinus tachycardia. No murmurs, gallops, or rubs. RESPIRATORY: Crackles throughout bilateral lungs (pulmonary edema). No wheezing no accessory muscle use. GASTROINTESTINAL: Abdomen soft, non-tender, nondistended, normal active bowel sounds MUSCULOSKELETAL: No cyanosis, or edema. NEURO: CN II-XII grossly intact, no focal deficits, no slurring of speech Urinary Catheter Management Indwelling Urethral Catheter: Cath placed during this visit: yes, but has since been removed by the nurse Urethral indwelling: No Insertion date: 07/06/18 Removal date: 07/11/18 Removal time: 12:25 Results Labs CBC & Chem 7: 07/12/18 05:45 07/12/18 05:43 Labs: Microbiology 07/10/18 05:29 Blood - Peripheral Aerobic Blood Culture - Preliminary No growth in 2 days 07/10/18 05:29 Blood - Peripheral Anaerobic Blood Culture - Preliminary No growth in 2 days 07/10/18 05:25 Blood - Peripheral Aerobic Blood Culture - Preliminary No growth in 2 days 07/10/18 05:25 Blood - Peripheral Anaerobic Blood Culture - Preliminary No growth in 2 days 07/10/18 04:45 Catheterized Urine Urine Culture - Final Pseudomonas aeruginosa Imaging Imaging: Impressions Chest X-Ray 07/11/18 15:01 CONCLUSION: Presumed congestive failure with bilateral pleural effusion. Chest X-Ray 07/12/18 00:00 CONCLUSION: Stable chest x-ray with bilateral opacities likely representing pleural effusions with associated volume loss and/or airspace consolidation. There are also lung changes suggesting pulmonary edema. Procedures Procedures: G-tube placed on 07/06/18 Assessment and Plan (1) Unintentional weight loss: Code(s): R63.4 - Abnormal weight loss Status: Acute Plan 68 years old male with past medical history of hypertension, PE, GERD, COPD presents to the emergency room with difficulty swallowing for 3 days, generalized weakness and back pain. Dysphagia w/ odynophagia s/p EGD by GI, results were normal G-tube placement by general surgery 07/06/2018 Continue with G-tube feeds, postop care Continue proton pump inhibitor Appreciate general surgery Anemia Patient hgb trended downward from 10 to 7.5. Will observe for now, transfusion may overload order ready appears to be fluid overloaded lungs Dyspnea, hypotension Recurrent episodes of dyspnea occurring 1-2 times per day Patient has had poor response to diuresis, likely from hypotension and poor renal perfusion Primary cause by x-ray seems to be pulmonary edema which is not improving with diuresis Will attempt albumin as a single dose today to see if that helps Generalized weakness Likely from caloric malnutrition due to inability to swallow secondary to odynophagia and dysphagia Patient has history of gastric bypass Continue with G-tube feeds Appreciate nutrition and speech therapy following Severe protein calorie malnutrition with significant weight loss Air bed ordered today for skin protection Giving single dose of Megace to stimulate appetite Atrial fibrillation Heart rate previously in the 120 range, responded to metoprolol 25 mg every 8 hours Continuing Lovenox Recent history of PE In February 2018, patient was diagnosed with small PE Continue Lovenox Chronic pain syndrome multiple back surgery history Continue home dose of [place] DVT prophylaxis Lovenox Discharge planning Patient will likely need rehab placement Progress Note: Quality VTE Deep Vein Thrombosis/Pulmonary Embolism Present on Admission: No
[2018-07-12] MEDS: Pantoprazole Inj 40 MG Vial IV.PUSH SCH (16:09)
--- NOTE | 2018-07-12 16:47 | ECG ---
Date Performed: 07/11/2018 Time Performed: 18:07:49 PTAGE: 68 years EKG: SINUS TACHYCARDIA SEPTAL MYOCARDIAL INFARCTION , PROBABLY OLD Since previous tracing, no si gnificant change noted ABNORMAL ECG PREVIOUS TRACING : 07/03/2018 16.54 DOCTOR: Wayne Morrissey Interpretating Date/Time 07/12/2018 16:45:14
--- NOTE | 2018-07-12 16:47 | ECG ---
Date Performed: 07/11/2018 Time Performed: 23:57:58 PTAGE: 68 years EKG: Supraventricular tachycardia. Possible anteroseptal infarct - age undetermined Inferior/lat eral T wave changes are nonspecific Low QRS voltages in limb leads Abnormal ECG PREVIOUS TRACING : 07/11/2018 18.07 DOCTOR: Wayne Morrissey Interpretating Date/Time 07/12/2018 16:45:42
--- NOTE | 2018-07-12 17:12 | P.DIET ---
Nutritional Evaluation Type of nutrition evaluation: follow-up (silent aspiration w/significant wt loss 30-lb wt loss over last 4 to 5 months; poor appetite) Screening comments: 07/03/18 MDC Poor PO Intake Subjective Barriers to Nutrition: Swallowing problem Subjective Comments: TF'ing running @ 50ml/hr. Discussed w/CHELO Acevedo the Rec TF'ing goal rate @ 60ml/ hr. Brought forward from previous note 07/05/18: Pt reports he his only PO intake for the last several weeks has been broth and tomato soup. Pt says he does not drink oral nutritional supplements because "they go right through me". Pt goes on to say that he has a sedentary lifestyle at home but would prefer to not have the TF'ing running all the time. Pt has a h/o Morales-en-y 6-years ago. Pt's reports his wt at 305-lb prior to the surgery. Objective - Diagnosis Dysphagia wt loss, suspected sepiration - Indications of Malnutrition Characteristics: Weight loss, Insufficient energy intake, Fat loss, Muscle loss - Objective % IBW: 82 Body Weight Used for Calculations: Actual (62 kg) Energy Needs - Lower Range (kCal/kg): 33 Energy Needs - Upper Range (kCal/kg): 38 Lower Limit kCal/kg (kCals): 2,046 Upper Limit kCal/kg (kCals): 2,356 Lower Limit Protein Factor (Grams per Kg): 1.2 Upper Limit Protein Factor (Grams per Kg): 1.6 Lower Protein Needs (Protein): 74 Upper Protein Needs (Protein): 99 Dietitian Reviewed in Medical Record: Curent medications, Intake & Output, Labs , Medical history Diet Order: TF'ing Jevity 1.5 @ goal rate 50ml/hr Speech Therapy Recommendations: Yes (07/12/18 NPO) Objective Comments: PMH includes: Anxiety , Depression, GERD, h/o AFib, h/o Pulmonary embolism, HTN h/o gastric wt loss surgery w/a Morales-en-Y; h/o esophageal dilation Meds include: Zofran, Protonix, Single dose of Megace 07/13 LBM 07/08(?) Feeding - Current Tube Feeding Tube Feeding Product: Jevity 1.5 Tube Feeding Rate: 50 Current kCals Provided by Tube Feedin,800 Current Protein Provided by Tube Feeding (gPRO): 77 Current Free H2O Provided (m/l): 912 Assessment Assessment: Pt continues at high nutrition risk r/t diagnosis and significant wt loss 30-lb over the last 4 to 5-months. Pt is s/p lap converted to open g-tube 07/06/18. Pt tolerating TF'ing w/Jevity 1.5 @ 50ml/hr w/a Rec goal rate @ 60ml/hr to offer 2160 kcal, 92g protein and 1094ml free water. Free water flushes per MD. Continue to monitor labs, electrolytes. Wt changes noted. Dietitian following. Recommendations: 1. Rec TF'ing w/Jevity 1.5 @ goal rate @ 60ml/hr 2. Free water flushes per MD 3. Dietitian following Dietitian to Monitor: Lab values, Electrolytes, Intake & Output, Tube feeding tolerance, Weight change, Swallow recommendations, Medical course
[2018-07-13 05:56] LABS: ABG Base Excess 8.7 mmol/L (-2-2); ABG PCO2 37 mmHg (38-42); ABG PO2 72 mmHg (61-120)
[2018-07-13 06:13] LABS: Hemoglobin 8.5 gm/dL (13.0-17.0); Mean Corpuscular HGB Conc 34.1 % (32.0-36.0); Mean Corpuscular Hemoglobin 32.8 pg (27.0-34.0); Mean Corpuscular Volume 96.1 fL (80.0-100.0); Mean Platelet Volume 8.5 fL (7.0-11.0); Platelet Count 168 th/mm3 (150-450); Red Blood Count 2.61 mil/mm3 (4.50-5.90); Red Cell Distribution Width 15.9 % (11.6-17.2)
[2018-07-13 06:40] LABS: Anion Gap 6 meq/L (5-15); Blood Urea Nitrogen 22 mg/dL (7-18); Calcium 7.5 mg/dL (8.5-10.1); Chloride 106 meq/L (98-107); Glomerular Filtration Rate Greater Than 89 mL/min (>89); Glucose,Random 105 mg/dL (74-106); Potassium 3.6 meq/L (3.5-5.1); Sodium 142 meq/L (136-145)
[2018-07-13] MEDS ORDERED: Digoxin Inj 500 MCG/2 ML Ampul IV.PUSH ONE ×2 (07:22→11:00)
[2018-07-13] MEDS: Enoxaparin Inj 60 MG/0.6 ML Syringe SQ SCH ×2 (08:10→20:55)
[2018-07-13] MEDS: Metoprolol Tartrate 25 MG Tablet G-TUBE SCH ×3 (08:10→18:06)
[2018-07-13] MEDS: Sodium Chloride 0.9% 2 ML Flush BID IV.FLUSH SCH ×2 (08:11→20:57)
[2018-07-13] MEDS ORDERED: Digoxin 250 MCG Tablet PO ONE (08:15)
--- NOTE | 2018-07-13 09:25 | XR ---
EXAM DATE: 07/13/2018 9:22 AM EST AGE/SEX: 68 years / Male INDICATIONS: Shortness of breath. CLINICAL DATA: This is the patient's subsequent encounter. Patient reports that signs and symptoms h ave been present for 1 week and indicates a pain score of 0/10. MEDICAL/SURGICAL HISTORY: . Hypertension. Cardiovascular disease. a-fib . Cardiac ablation. [place] [facility] [place], [place]. . FINDINGS: Severe diffuse bilateral infiltrates are noted consistent with severe pulmonary edema versus pneumoni a. Clinical correlation is recommended. The heart is stable. Small bilateral pleural effusions are no katie. CONCLUSION: 1. Severe diffuse bilateral infiltrates are noted consistent with severe pulmonary edema versus pneu monia. Clinical correlation is recommended. 2. Small bilateral pleural effusions. Electronically signed by: Gamal Goetz MD Board Certified Radiologist 07/13/2018 9:24 AM EST
--- NOTE | 2018-07-13 09:50 | P.PNGS ---
Subjective Interval history: Currently on stretcher getting ready to go to [facility] CHELO Sawyer at bedside-- she spoke with Dr. Franks--- he ordered for patient to be transferred to [facility] due to tachycardia and respiratory status. Patient CXR reviewed. Patient at high risk to be intubated. Will transfer to [facility] with consult to [facility]. Discussed with Dr. Magana and Hilda Charge Nurse. Reviewed EKG--- showing afib with HR in the 140s. Physical Exam Vital signs: Vital Signs 07/12/18 10:04 07/12/18 11:00 07/12/18 11:58 Temperature 98.2 F Pulse Rate 88 94 H 82 Respiratory Rate 20 16 Blood Pressure 94/56 L Pulse Oximetry 93 L 07/12/18 16:00 07/12/18 19:00 07/12/18 19:51 Temperature 97.9 F 97.3 F L Pulse Rate 96 H 80 97 H Respiratory Rate 20 20 18 Blood Pressure 100/60 123/67 Pulse Oximetry 94 L 96 07/12/18 20:00 07/12/18 23:52 07/13/18 00:00 Temperature 99.6 F 98.4 F Pulse Rate 111 H 109 H 105 H Respiratory Rate 16 16 Blood Pressure 114/71 101/59 L Pulse Oximetry 90 L 94 L 07/13/18 00:07 07/13/18 04:00 07/13/18 06:00 Temperature 97.9 F Pulse Rate 120 H 121 H Respiratory Rate 16 Blood Pressure 91/62 L Pulse Oximetry 90 L 98 07/13/18 07:47 Temperature Pulse Rate Respiratory Rate Blood Pressure Pulse Oximetry 94 L Intake & Output 07/12/18 07/13/18 07/13/18 18:59 06:59 18:59 Intake Total 714 / 714 0 / 0 Output Total 400 / 400 200 / 200 Balance 314 / 314 -200 / -200 Weight 78 kg Intake: IV 150 / 150 Flexbumin 25% Inj 50 ML @ 60 50 / 50 mls/hr IV.SIG ONCE ONE Rx#: [id number] Rocephin Inj 1,000 MG In NS Inj 100 / 100 100 ML @ 200 mls/hr IV.SIG Q24H [facility] Rx#:[id number] Oral 0 / 0 Tube Feeding 504 / 504 Tube Irrigant 60 / 60 Output: Urine 400 / 400 200 / 200 Narrative: Alert and awake Resp: Clear; on Partial NRB mask Abd: soft; flat; RIGHT upper quadrant incision c/d/i with corina. G tube in place - Urinary Catheter Management Indwelling Urethral Catheter Cath placed during this visit: yes, but has since been removed by the nurse Urethral indwelling: No Reason for continuing: Chronic Urinary Retention Insertion date: 07/06/18 Removal date: 07/11/18 Removal time: 12:25 Results - Labs 07/14/18 05:03 07/14/18 05:03 Laboratory Results - last 24 hr 07/13/18 07/13/18 07/13/18 04:58 04:58 05:45 WBC 6.0 RBC 2.61 L Hgb 8.5 L Hct 25.0 L MCV 96.1 MCH 32.8 MCHC 34.1 RDW 15.9 Plt Count 168 MPV 8.5 Puncture Site Right radial Patient Temperature 98.6 O2 Saturation 94 ABG pH 7.54 H* ABG pCO2 37 L ABG pO2 72 ABG HCO3 32 H ABG O2 Content 13.7 ABG Base Excess 8.7 H ABG Methemoglobin 1.1 Niraj Test Present Hemoglobin 10.4 L Carboxyhemoglobin 1.8 O2 Delivery Device Non-rebreathing mask Liter Flow 15.00 Inspired O2 100 Critical Value Yes Sodium 142 Potassium 3.6 Chloride 106 Carbon Dioxide 30.0 Anion Gap 6 BUN 22 H Creatinine 0.77 Estimated GFR Greater than 89 Random Glucose 105 Calcium 7.5 L - Imaging Imaging: ITS Impressions Chest CTA 07/03/18 08:26 CONCLUSION: 1. No evidence of acute pulmonary emboli. 2. COPD 3. Minimal left lower lobe airspace disease characteristic of atelectasis 4. Hepatic steatosis 5. Otherwise stable evaluation. Chest X-Ray 07/13/18 08:49 CONCLUSION: 1. Severe diffuse bilateral infiltrates are noted consistent with severe pulmonary edema versus pneumonia. Clinical correlation is recommended. 2. Small bilateral pleural effusions. Assessment and Plan - Assessment (1) Unintentional weight loss Code(s): R63.4 - Abnormal weight loss Status: Acute Plan: 68 year old male with dysphagia; weight loss; in need to enteral feeding access -CXR reviewed--due to increase in oxygen requirements will transfer to [facility]. Discussed with Dr. Magana already. -Hmg 8.5---improved after Bumex yesterday. -s/p lap converted to open g tube -Tolerating 50 cc an hour; increase to goal of 60 cc/hr -Pain control---continue PRN liquid oxycodone -Lovenox -Discussed with CHELO Sawyer (7N nurse), Hilda (charge nurse in [facility]) and Dr. Magana -Will move patient STAT to [facility] Present at bedside this morning; agree with transfer Wound/incision clean and dry Tolerating enteral feeding Transfer to [facility]; discussed intermediate frame tender issues with patient again today. Will continue full support for now. The exam, history, and the medical decision-making described in the above note were completed with the assistance of the mid-level provider. I reviewed and agree with the findings presented. I attest that I had a [id number] encounter with the patient on the same day, and personally performed and documented my assessment and findings in the medical record. - Plan Discussed Condition With: Patient Nurse Kristina
[2018-07-13] MEDS ORDERED: Potassium Chlor 40 mEq Premix 40 MEQ/100 ML PIGGYBACK IV.SIG PRN ×2 (11:17)
[2018-07-13] MEDS ORDERED: Magnesium Oxide 400 MG Tablet PO PRN (11:17)
[2018-07-13] MEDS ORDERED: Potassium Chloride 25 MEQ Effervescent Tablet PO PRN (11:17)
[2018-07-13] MEDS ORDERED: Potassium Phosphate Inj 30 MMOL in Sodium Chlor 0.9% Inj 250 ML IV.SIG PRN (11:17)
[2018-07-13] MEDS ORDERED: Sodium Phosphate Inj 30 MMOL in Sodium Chlor 0.9% Inj 250 ML IV.SIG PRN (11:17)
[2018-07-13] MEDS ORDERED: Potassium Chlor 20 mEq Premix 20 MEQ/100 ML PIGGYBACK IV.SIG PRN ×2 (11:17)
[2018-07-13] MEDS ORDERED: Magnesium Sulfate Inj 4 GM in Sodium Chlor 0.9% Inj 92 ML IV.SIG PRN (11:17)
[2018-07-13] MEDS ORDERED: Acetaminophen 325 MG Tablet PO PRN (11:17)
[2018-07-13] MEDS ORDERED: Potassium Phosphate 500 MG Soluble Tablet PO PRN ×2 (11:17)
[2018-07-13] MEDS ORDERED: Magnesium Sulfate Inj 2 GM in Sodium Chlor 0.9% Inj 96 ML IV.SIG PRN (11:17)
--- NOTE | 2018-07-13 11:49 | P.CONCC ---
History of Present Illness Service: [facility] Consult date: 07/13/18 Requesting Physician: Sabina Hollis Reason for Consult: Respiratory distress, hypoxia Primary Care Provider: Heriberto Gan MD Chief Complaint: Chest pain History of Present Illness: 68yM transferred to [facility] for respiratory distress and hypoxia. The patient presented to the ED on 07/03 for suspected recurrent aspiration and unintentional weight loss, found to have overt aspiration when evaluated by speech therapy. He was seen by GI and a PEG was attempted but could not be placed due to his history of gastric bypass. The patient was then evaluated by general surgery and had a laparoscopic converted to open G tube placed on 07/[address] Briones. Since then, the patient has had infrequent fevers, had an episode of rapid A fib and hypotension, and has been given lasix for pulmonary edema. This morning, he was noted to have hypoxia requiring supplemental O2 via non-rebreather and a CXR showed significant bilateral infiltrates vs pulmonary edema. The patient reports that he feels "winded" and short and breath. He also reports cough productive of thick sputum for the past several days. He has been receiving tube feeds at goal and denies any aspiration events since having his G tube placed. Review of Systems All other systems reviewed negative except as stated in HPI Constitutional: Reports fever(s), Reports weight loss, Denies chills Ears, Nose, Mouth, and Throat: Denies nasal congestion Cardiovascular: Denies chest pain Respiratory: Reports cough, Reports shortness of breath Gastrointestinal: Reports nausea, Denies vomiting Genitourinary: Denies painful urination Neurologic: Denies confusion Psychiatric: Denies confusion [facility] - History History Provided By: Patient - Medical History Medical History: Medical History (Last Reviewed 07/13/18 @ 11:37 by Sabina Hollis DO) History of pulmonary embolism (Acute) History of atrial fibrillation (Acute) GERD (gastroesophageal reflux disease) (Acute) Anxiety and depression (Acute) Hypertension (Acute) - Surgical History Surgical History: Surgical History (Last Reviewed 07/13/18 @ 11:37 by Sabina Hollis DO) History of cardiac radiofrequency ablation (Acute) Hx of cholecystectomy (Acute) H/O knee surgery (Acute) Hx of gastric bypass (Acute) Previous back surgery (Acute) - Family History Family History: Family History (Last Reviewed 07/13/18 @ 11:37 by Sabina Hollis DO) Mother History of heart disease Father History of heart disease Grandparent History of diabetes mellitus Sister History of lung cancer - Social History I have reviewed the patient's Social History: Yes - Tobacco History Second Hand Smoke Exposure: No Tobacco Use In Past 30 Days: No Smoking Status: Former smoker Tobacco Type: Cigarettes Number of Pack Years (if former smoker): 90 - Alcohol History How Often Do You Have a Drink Containing Alcohol: Never - Substance Use History Substance History: No History of Abuse - Travel History Recent Travel in the [place] Within the Last 8 Weeks: No Recent Travel Out of the Country Within the Last 8 Weeks: No - Immunization History Tetanus Immunization: Unsure Hx Influenza Vaccine This Season: Yes Medications and Allergies Active Medications: Active Medications Acetaminophen (Tylenol) 650 mg PO Q6H PRN PRN Reason: PAIN 1-10 AND/OR FEVER >101F Acetylcysteine (Mucomyst 20% Neb) 2 ml NEB Q6HR NEB SHAHLA Stop: 07/15/18 04:01 Al Hydroxide/Mg Hydroxide (Milk Of Laurie Nash) 30 ml PO Q12H PRN PRN Reason: Mild Constipation Albuterol (Duoneb Neb (Prn)) 1 ampul NEB Q2HR NEB PRN PRN Reason: WHEEZING Albuterol (Duoneb Neb (Shahla)) 1 ampul NEB Q4HR NEB SHAHLA Bisacodyl (Dulcolax Supp) 10 mg RECTAL DAILY PRN PRN Reason: SEVERE CONSITIPATION Chlorhexidine Gluconate (Chlorhexidine 2% Cloth) 3 pack TOPICAL DAILY@0400 SHAHLA Stop: 07/19/18 03:59 Chlorhexidine Gluconate (Chlorhexidine 2% Cloth) 3 pack TOPICAL DAILY@0400 PRN PRN Reason: Extra cloth needed Stop: 07/19/18 03:59 Dextrose (D50w Vial) 50 ml IV.PUSH UNSCH PRN PRN Reason: PER HYPOGLYCEMIA PROTOCOL Enoxaparin Sodium (Lovenox Inj) 60 mg SQ Q12HR SHAHLA Last Admin: 07/13/18 08:10 Dose: 60 mg Glucagon (Glucagon Inj) 1 mg OTHER PRN PRN PRN Reason: for Hypoglycemia Protocol Hydromorphone HCl (Dilaudid Pf Inj) 1 mg IV.PUSH Q3H PRN PRN Reason: breakthrough pain Last Admin: 07/11/18 23:01 Dose: 1 mg Sodium Chloride (Ns Inj) 500 mls @ 30 mls/hr IV.SIG .Q10H SHAHLA Last Admin: 07/05/18 21:56 Dose: Not Given Magnesium Sulfate 4 gm/ Sodium (Chloride) 100 mls @ 50 mls/hr IV.SIG UNSCH PRN PRN Reason: For Magnesium 0.9 - 1.1 mg/dL Potassium Chloride (Kcl 40 Meq Premix Inj) 40 meq in 100 mls @ 25 mls/hr IV.SIG Q2H PRN PRN Reason: For Potassium 2.8 - 3.2 mEq/L Potassium Chloride (Kcl 20 Meq Premix Inj) 20 meq in 100 mls @ 50 mls/hr IV.SIG Q2H PRN PRN Reason: For Potassium 3.3 - 3.5 mEq/L Potassium Chloride (Kcl 40 Meq Premix Inj) 40 meq in 100 mls @ 25 mls/hr IV.SIG UNSCH PRN PRN Reason: For Potassium 3.3 - 3.5 mEq/L Potassium Chloride (Kcl 20 Meq Premix Inj) 20 meq in 100 mls @ 50 mls/hr IV.SIG Q2H PRN PRN Reason: For Potassium 2.8 - 3.2 mEq/L Potassium Phosphate 30 mmol/ (Sodium Chloride) 260 mls @ 42 mls/hr IV.SIG UNSCH PRN PRN Reason: SEE LABEL COMMENTS Sodium Phosphate 30 mmol/ (Sodium Chloride) 260 mls @ 42 mls/hr IV.SIG UNSCH PRN PRN Reason: For Phosphorus < 2.5 mg/dL Magnesium Sulfate 2 gm/ Sodium (Chloride) 100 mls @ 50 mls/hr IV.SIG UNSCH PRN PRN Reason: For Magnesium 1.2 - 1.6 mg/dL Piperacillin/Tazobactam/Dextrose (Zosyn 3.375 Gm Premix) 3.375 gm in 50 mls @ 100 mls/hr IV.SIG Q6H [facility] Azithromycin 500 mg/ Sodium (Chloride) 250 mls @ 250 mls/hr IV.SIG Q24H [facility] Lorazepam (Ativan Inj) 1 mg IV.PUSH Q6H PRN PRN Reason: ANXIETY AND/OR INSOMNIA Last Admin: 07/12/18 20:46 Dose: 1 mg Magnesium Oxide (Mag-Ox) 800 mg PO UNSCH PRN PRN Reason: For Magnesium 1.2 - 1.6 mg/dL Megestrol Acetate (Megace) 40 mg PO DAILY [facility] Last Admin: 07/13/18 08:10 Dose: 40 mg Metoprolol Tartrate (Lopressor) 25 mg G-TUBE TID [facility] Last Admin: 07/13/18 08:10 Dose: 25 mg Ondansetron HCl (Zofran Inj) 4 mg IV.PUSH Q6H PRN PRN Reason: NAUSEA OR VOMITING Last Admin: 07/13/18 08:19 Dose: 4 mg Oxycodone HCl (Roxicodone Intensol Liq) 5 mg PO Q3H PRN PRN Reason: Pain 1-10 Last Admin: 07/13/18 02:12 Dose: 5 mg Pantoprazole Sodium (Protonix Inj) 40 mg IV.PUSH Q24H [facility] Last Admin: 07/12/18 16:09 Dose: 40 mg Potassium Bicarb/Potassium Chloride (K-Lyte Cl Eff) 50 meq PO UNSCH PRN PRN Reason: For Potassium 3.3 - 3.5 mEq/L Potassium Phosphate (K-Phos Original) 2,000 mg PO Q4H PRN PRN Reason: Phosphorus Less Than 2.5 mg/dL Potassium Phosphate (K-Phos Original) 2,000 mg PO UNSCH PRN PRN Reason: SEE LABEL COMMENTS Senna/Docusate Sodium (Candi-Colace) 1 tab PO BID [facility] Sennosides (Senokot) 17.2 mg PO Q12H PRN PRN Reason: Moderate Constipation Sodium Chloride (Ns Flush) 2 ml IV.FLUSH BID [facility] Last Admin: 07/13/18 08:11 Dose: 2 ml Sodium Chloride (Ns Flush) 2 ml IV.FLUSH PRN PRN PRN Reason: FLUSH AFTER USING IV ACCESS Sodium Chloride (Ns Flush) 2 ml IV.FLUSH BID [facility] Sodium Chloride (Ns Flush) 2 ml IV.FLUSH PRN PRN PRN Reason: FLUSH AFTER USING IV ACCESS Allergies Allergy/AdvReac Type Severity Reaction Status Date / Time No Known Allergies Allergy Verified 07/03/18 08:16 Home Medications Medication Instructions Recorded Confirmed Type lorazepam 1 mg PO BID 01/31/18 07/03/18 History losartan 25 mg PO DAILY 01/31/18 07/03/18 History metoprolol tartrate 25 mg PO BID 01/31/18 07/03/18 History mirtazapine 30 mg PO HS 01/31/18 07/03/18 History omeprazole 40 mg PO DAILY 01/31/18 07/03/18 History zolpidem 10 mg PO HS 01/31/18 07/03/18 History fluoxetine [Prozac] 40 mg PO DAILY 03/20/18 07/03/18 History Corn 10 - 325 tab PO TID PRN 04/25/18 07/03/18 History rivaroxaban [Xarelto] 20 mg PO DAILY 07/03/18 07/03/18 History Physical Exam Vital signs: Vital Signs 07/12/18 11:58 07/12/18 16:00 07/12/18 19:00 Temperature 97.9 F Pulse Rate 82 96 H 80 Respiratory Rate 16 20 20 Blood Pressure 100/60 Pulse Oximetry 94 L 07/12/18 19:51 07/12/18 20:00 07/12/18 23:52 Temperature 97.3 F L 99.6 F 98.4 F Pulse Rate 97 H 111 H 109 H Respiratory Rate 18 16 16 Blood Pressure 123/67 114/71 101/59 L Pulse Oximetry 96 90 L 94 L 07/13/18 00:00 07/13/18 00:07 07/13/18 04:00 Temperature 97.9 F Pulse Rate 105 H 120 H 121 H Respiratory Rate 16 Blood Pressure 91/62 L Pulse Oximetry 90 L 07/13/18 06:00 07/13/18 07:47 Temperature Pulse Rate Respiratory Rate Blood Pressure Pulse Oximetry 98 94 L Intake & Output 07/12/18 07/13/18 07/13/18 18:59 06:59 18:59 Intake Total 714 / 714 0 / 0 100 / 100 Output Total 400 / 400 200 / 200 Balance 314 / 314 -200 / -200 100 / 100 Weight 78 kg Intake: IV 150 / 150 100 / 100 Flexbumin 25% Inj 50 ML @ 60 50 / 50 mls/hr IV.SIG ONCE ONE Rx#: [id number] Rocephin Inj 1,000 MG In NS Inj 100 / 100 100 / 100 100 ML @ 200 mls/hr IV.SIG Q24H [facility] Rx#:[id number] Oral 0 / 0 Tube Feeding 504 / 504 Tube Irrigant 60 / 60 Output: Urine 400 / 400 200 / 200 Narrative: GEN: Cachectic, ill-appearing male sitting in bed, no acute distress HEENT: NCAT, PERRL NECK: Trachea midline CARDIO: Regular, rate-controlled sinus rhythm on monitor PULM: Diminished breath sounds bilaterally, right worse than left, coarse rhonchi bilaterally, O2 sats 99-100% on non-rebreather mask. The patient took off his mask during my exam and rapidly desaturated to high 80s. ABD/GI: G tube in place, surgical incisions clean/ dry/ intact, mild diffuse tenderness, no guarding or rebound EXT/MSK: No peripheral edema, full-body muscle wasting SKIN: No rashes or lesions NEURO: A&Ox3, speech clear and fluent, answers questions appropriately, no focal neuro deficits PSYCH: Calm, no agitation - Urinary Catheter Management Indwelling Urethral Catheter Cath placed during this visit: yes, but has since been removed by the nurse Urethral indwelling: No Reason for continuing: Chronic Urinary Retention Insertion date: 07/06/18 Removal date: 07/11/18 Removal time: 12:25 Assessment and Plan - Assessment and Plan Plan: 68yM with recurrent aspiration, unintentional weight loss, POD #6 s/p open G tube placement, respiratory distress/ hypoxia with significant bilateral pulmonary infiltrates NEURO: Chronic low back pain * Tylenol and oxycodone PRN pain/ fever CARDIO: Chronic atrial fibrillation Hypotension * Continue metoprolol and digoxin with hold parameters for hypotension/ bradycardia * Not currently on pressors, positive fluid status since admission * Will order 2D echo given hypotension and poor response to diuretics, would like to evaluate EF * Trend trop PULM: History of pulmonary embolism Hypoxia, respiratory distress secondary to suspected HCAP/ pulmonary edema Previous smoking history * Patient is 14L positive/ 16 kg up from admission weight; however, his BP is currently borderline. Patient already given albumin and bumex 2 mg earlier today. Hold off on further diuresis for now as BP is borderline. * CXR shows significant bilateral pulmonary infiltrates concerning for HCAP/ pulmonary edema. Start antibiotics as detailed below. * Scheduled and PRN nebs, mucomyst nebs x 24 hrs * Steroids (125 mg solumedrol now, 60 mg q12 to follow) * Aggressive pulmonary toilet * High flow NC vs NRB (whichever patient tolerates better) * Nocturnal bipap for recruitment/ rest F/E/N: Severe protein calorie malnutrition as evidenced by temporal wasting, cachexia, hypoalbuminemia * Continue tube feeds, currently ordered for 60 mL/hr, appropriate for patient' s IBW * Add 2 packets protein daily * Add multivitamin * Continue megace * Check prealbumin with AM labs * Not currently on maintenance fluids * ICU electrolyte protocol, keep Mg++ >2 and K+ >4 ID: Healthcare associated pneumonia * Blood cultures from 07/10 show no growth to date * Repeat blood cultures today * Urine culture from 07/10 grew engel-sensitive pseudomonas * Patient had been on rocephin prior to transfer to unit, presumably for pseudomonas UTI; change antibiotics to zosyn/ azithro to cover for HCAP HEME: Acute normocytic anemia * Currently stable at 8.5, no current transfusion needs * Nutritional support as detailed above * Monitor for signs/ symptoms of bleeding PROPHY: * SCDs, lovenox * PPI OVERALL: This patient is critically ill with acute hypoxia, respiratory distress , and significant bilateral pulmonary disease. He requires close monitoring in the ICU and may require intubation. I discussed this with the patient, who wishes to be full code and agrees to intubation if needed. Counseling/ Coordination of Care: This patient is critically ill with impairment of one or more vital organ systems with a high probability of imminent or life-threatening deterioration. High-complexity medical decision making was required to support vital organ function and/ or prevent deterioration in the patient's condition. Total critical care time spent is 55 minutes giving full attention to this patient. This includes examining the patient, gathering history from someone other than the patient (i.e. chart review), discussing the patient's care with other providers, managing the patient's oxygen requirement, ordering and interpreting radiologic studies, ordering and interpreting laboratory values, re -evaluation at frequent intervals, and documentation. Amount of time is separate from teaching, counseling the patient and/or family, and exclusive of procedures. Code Status: Full Discussed Condition With: Tahmina Longoria (surgery AP), patient, RN
[2018-07-13] MEDS: Piperacil/Tazo 3.375 GM Premix 3.375 GM/50 ML PIGGYBACK IV.SIG SCH ×3 (11:54→23:48)
[2018-07-13] MEDS: Azithromycin Inj 500 MG in Sodium Chlor 0.9% Inj 250 ML IV.SIG SCH (12:03)
--- NOTE | 2018-07-13 12:14 | P.PNIM ---
Subjective Interval history: 18-year-old male admitted for dysphagia and generalized weakness. He underwent G-tube placement and had some subsequent anemia that normalized following infusion of 1 unit of packed red blood cells. Since that time he has had static shortness of breath, workup revealed fluid overload significant left side pulmonary effusion. Diuresis was given but his output has not kept up adequately getting rid of the effusion and he remains short of breath. Yesterday's lab work revealed anemia, today it is better. This morning however he complaining of more shortness of breath and chest pain. Physical Exam Vital signs: Last Vital Signs Temp 97.9 F 07/13/18 04:00 Pulse 121 H 07/13/18 04:00 Resp 16 07/13/18 04:00 BP 91/62 L 07/13/18 04:00 Pulse Ox 94 L 07/13/18 07:47 Intake & Output 07/11/18 07/12/18 07/13/18 07/14/18 06:59 06:59 06:59 06:59 Intake Total 1750 / 1750 740 / 740 714 / 714 100 / 100 Output Total 1974 / 1974 2625 / 2625 600 / 600 Balance -225 / -225 -1885 / -1885 114 / 114 100 / 100 Weight 78 kg 78 kg 78 kg Narrative: GEN: Cachectic, ill-appearing male sitting in bed, complaining of chest pain HEENT: NCAT, PERRL NECK: Trachea midline CARDIO: Tachycardia, regular rhythm, no significant murmur PULM: Diminished breath sounds bilaterally, right worse than left, coarse rhonchi bilaterally, unable to maintain adequate oxygenation. Nonrebreather mask ABD/GI: G tube in place, surgical incisions clean/ dry/ intact, mild diffuse tenderness, no guarding or rebound EXT/MSK: No peripheral edema, full-body muscle wasting SKIN: No rashes or lesions NEURO: A&Ox3, speech clear and fluent, answers questions appropriately, no focal neuro deficits PSYCH: Calm, no agitation Urinary Catheter Management Indwelling Urethral Catheter: Cath placed during this visit: yes, but has since been removed by the nurse Urethral indwelling: No Insertion date: 07/06/18 Removal date: 07/11/18 Removal time: 12:25 Results Labs CBC & Chem 7: 07/13/18 04:58 07/13/18 04:58 Labs: Microbiology 07/10/18 05:29 Blood - Peripheral Aerobic Blood Culture - Preliminary No growth in 3 days 07/10/18 05:29 Blood - Peripheral Anaerobic Blood Culture - Preliminary No growth in 3 days 07/10/18 05:25 Blood - Peripheral Aerobic Blood Culture - Preliminary No growth in 3 days 07/10/18 05:25 Blood - Peripheral Anaerobic Blood Culture - Preliminary No growth in 3 days 07/10/18 04:45 Catheterized Urine Urine Culture - Final Pseudomonas aeruginosa Imaging Imaging: Impressions Chest X-Ray 07/13/18 08:49 CONCLUSION: 1. Severe diffuse bilateral infiltrates are noted consistent with severe pulmonary edema versus pneumonia. Clinical correlation is recommended. 2. Small bilateral pleural effusions. Procedures Procedures: G-tube placed on 07/06/18 Assessment and Plan (1) Unintentional weight loss: Code(s): R63.4 - Abnormal weight loss Status: Acute Plan 68 years old male with past medical history of hypertension, PE, GERD, COPD presents to the emergency room with difficulty swallowing for 3 days, generalized weakness and back pain. Chest pain Acute onset of chest pain associated with shortness of breath this morning EKG was borderline showing mild T wave inversions, initial troponins are negative Follow serial troponins, transferred to [facility] for higher level of care and risk for intubation We will consult cardiology if troponins turn positive Dyspnea, hypotension Worsening pulmonary edema on stat chest x-ray Patient has had poor response to diuresis, likely from hypotension and poor renal perfusion Primary cause by x-ray seems to be pulmonary edema which is not improving with diuresis Continue to turn diuresis, using Bumex instead of Lasix Monitor in ICU, patient at risk for intubation if any worsening occurs Dysphagia w/ odynophagia s/p EGD by GI, results were normal G-tube placement by general surgery 07/06/2018 Continue with G-tube feeds, postop care Continue proton pump inhibitor Appreciate general surgery Anemia Hemoglobin trended downward to 7.5 2 days ago but looks stable at 8.5 today Follow with daily CBC Generalized weakness Likely from caloric malnutrition due to inability to swallow secondary to odynophagia and dysphagia Patient has history of gastric bypass Continue with G-tube feeds Appreciate nutrition and speech therapy following Severe protein calorie malnutrition with significant weight loss Air bed ordered today for skin protection Giving single dose of Megace to stimulate appetite Atrial fibrillation Heart rate previously in the 120 range, responded to metoprolol 25 mg every 8 hours Continuing Lovenox Recent history of PE In February 2018, patient was diagnosed with small PE Continue Lovenox Chronic pain syndrome multiple back surgery history Continue home dose of [place] DVT prophylaxis Lovenox Discharge planning Patient will likely need rehab placement Progress Note: Quality VTE Deep Vein Thrombosis/Pulmonary Embolism Present on Admission: No
[2018-07-13] MEDS ORDERED: MethylPREDNISolone Sod Succinate Inj 125 MG/2 ML Vial IV.PUSH ONE (12:30)
[2018-07-13] MEDS: Pantoprazole Inj 40 MG Vial IV.PUSH SCH (15:13)
--- NOTE | 2018-07-13 16:23 | ECG ---
Date Performed: 07/13/2018 Time Performed: 09:12:37 PTAGE: 68 years EKG: SINUS TACHYCARDIA LOW QRS VOLTAGE IN EXTREMITY LEADS SEPTAL MYOCARDIAL INFARCTION , OF INDE TERMINATE AGE MODERATE T-WAVE ABNORMALITY, CONSIDER ANTERIOR ISCHEMIA Compared to previous tracing, t he patient's heart rate has slowed significantly ABNORMAL ECG PREVIOUS TRACING : 07/11/2018 23.57 DOCTOR: Marianna Powell Interpretating Date/Time 07/13/2018 16:22:07
[2018-07-13] MEDS: HYDROmorphone PF Inj 2 MG/ML Vial IV.PUSH PRN ×2 (16:33→23:48)
--- NOTE | 2018-07-13 17:32 | ECHRPT ---
Indication: Atrial Fib and Flutter CONCLUSIONS Technically difficult study. In limited views, the left ventricular systolic function is normal with an estimated ejection fracti on in the range of 55-60%. There was limited left ventricular wall motion assessment due to poor endocardial visualization. There is mild tricuspid valve regurgitation. The estimated pulmonary arterial pressure is 48 mmHg. BP: 113 / 76 HR: 90 Rhythm: MEASUREMENTS (Male / Female) Normal Values Technical Quality:Technically difficult study 2D ECHO LV Diastolic Diameter PLAX 4.0 cm 4.2 - 5.9 / 3.9 - 5.3 cm LV Systolic Diameter PLAX 3.1 cm IVS Diastolic Thickness 1.0 cm 0.6 - 1.0 / 0.6 - 0.9 cm LVPW Diastolic Thickness 1.0 cm 0.6 - 1.0 / 0.6 - 0.9 cm LV Relative Wall Thickness 0.5 RV Internal Dim ED PLAX 2.0 cm LVOT Diameter 1.8 cm Aortic Root Diameter 3.4 cm LA Systolic Diameter LX 3.4 cm 3.0 - 4.0 / 2.7 - 3.8 cm DOPPLER AV Peak Velocity 90.9 cm/s AV Peak Gradient 3.3 mmHg LVOT Peak Velocity 63.2 cm/s LVOT Peak Gradient 1.6 mmHg AV Area Cont Eq pk 1.8 cm Mitral E Point Velocity 69.1 cm/s Mitral A Point Velocity 39.0 cm/s Mitral E to A Ratio 1.8 LV E' Lateral Velocity 13.2 cm/s Mitral E to LV E' Lateral Ratio 5.2 LV E' Septal Velocity 6.4 cm/s Mitral E to LV E' Septal Ratio 10.7 TR Peak Velocity 308.0 cm/s TR Peak Gradient 37.9 mmHg Right Atrial Pressure 10.0 mmHg Pulmonary Artery Systolic Pressu 47.9 mmHg Right Ventricular Systolic Press 47.9 mmHg PV Peak Velocity 50.2 cm/s PV Peak Gradient 1.0 mmHg FINDINGS LEFT VENTRICLE Normal left ventricular size. Wall thickness is measured at the upper limits of normal. In limited views, the left ventricular systolic function is normal with an estimated ejection fracti on in the range of 55-60%. There was limited left ventricular wall motion assessment due to poor endocardial visualization. RIGHT VENTRICLE Normal right ventricular size and systolic function. LEFT ATRIUM The left atrial size is normal. RIGHT ATRIUM The right atrial size is normal. ATRIAL SEPTUM Normal atrial septal thickness without atrial level shunting by limited color doppler interrogation. AORTA The aortic root and proximal ascending aorta are normal in size on limited imaging. MITRAL VALVE Structurally normal mitral valve. Moderate mitral annular calcification. No mitral valve regurgitation. No mitral valve stenosis. AORTIC VALVE The aortic valve is not well visualized. No aortic valve regurgitation. No aortic valve stenosis. TRICUSPID VALVE Grossly normal There is mild tricuspid valve regurgitation. The estimated pulmonary arterial pressure is 48 mmHg. PULMONARY VALVE No pulmonary valve regurgitation or stenosis. VESSELS The inferior vena cava is normal in size. PERICARDIUM There is a trivial pericardial effusion present. Omi Burnett DO (Electronically Signed) Final Date:13 July 2018 17:31
[2018-07-13] MEDS: MethylPREDNISolone Sod Succinate Inj 125 MG/2 ML Vial IV.PUSH SCH (20:55)
[2018-07-13] MEDS: Senna/Docusate Sodium 8.6/50 MG Tablet PO SCH (20:58)
[2018-07-14] MEDS ORDERED: Chlorhexidine Gluconate 2% 1 Pack (2 Cloths) TOPICAL PRN (04:00)
[2018-07-14] MEDS ORDERED: Chlorhexidine Gluconate 2% 1 Pack (2 Cloths) TOPICAL SCH (04:00)
[2018-07-14 05:42] VITALS: TEMP 97.6
[2018-07-14] MEDS: Piperacil/Tazo 3.375 GM Premix 3.375 GM/50 ML PIGGYBACK IV.SIG SCH ×3 (05:44→17:48)
[2018-07-14 06:06] VITALS: BP 109/71; PULSE 100; RESP 25
[2018-07-14 06:20] LABS: Baso % (Auto) 0.1 % (0.0-2.0); Hematocrit 21.9 % (39.0-51.0); Hemoglobin 7.5 gm/dL (13.0-17.0); Lymph # (Auto) 0.2 th/mm3 (1.0-4.8); Lymph % (Auto) 4.8 % (9.0-44.0); Mean Corpuscular HGB Conc 34.5 % (32.0-36.0); Mean Corpuscular Hemoglobin 33.1 pg (27.0-34.0); Mean Corpuscular Volume 95.9 fL (80.0-100.0); Mean Platelet Volume 8.9 fL (7.0-11.0); Mono # (Auto) 0.1 th/mm3 (0.0-0.9); Mono % (Auto) 2.6 % (0.0-8.0); Neut # (Auto) 4.8 th/mm3 (1.8-7.7); Neut % (Auto) 92.5 % (16.0-70.0); Platelet Count 198 th/mm3 (150-450); Red Blood Count 2.28 mil/mm3 (4.50-5.90); Red Cell Distribution Width 16.1 % (11.6-17.2); White Blood Count 5.1 th/mm3 (4.0-11.0)
[2018-07-14 06:46] LABS: Alanine Aminotransferase 13 U/L (12-78); Albumin 1.2 g/dL (3.4-5.0); Alkaline Phosphatase 85 U/L (45-117); Anion Gap 7 meq/L (5-15); Aspartate Aminotransferase 12 U/L (15-37); Blood Urea Nitrogen 26 mg/dL (7-18); Carbon Dioxide 32.9 meq/L (21.0-32.0); Chloride 105 meq/L (98-107); Glomerular Filtration Rate Greater Than 89 mL/min (>89); Glucose,Random 155 mg/dL (74-106); Magnesium 1.8 mg/dL (1.5-2.5); Phosphorus 0.4 mg/dL (2.5-4.9); Potassium 3.5 meq/L (3.5-5.1); Prealbumin 6 mg/dL (20-40); Sodium 145 meq/L (136-145); Total Protein 4.8 g/dL (6.4-8.2)
[2018-07-14 06:48] VITALS: O2SAT 92
[2018-07-14] MEDS ORDERED: Multivit/Folic Acid/Minerals Chewable Tablets CHEW SCH (09:00)
[2018-07-14] MEDS: Metoprolol Tartrate 25 MG Tablet G-TUBE SCH ×3 (09:02→17:48)
[2018-07-14] MEDS: Enoxaparin Inj 60 MG/0.6 ML Syringe SQ SCH (09:05)
[2018-07-14] MEDS: Sodium Chloride 0.9% 2 ML Flush BID IV.FLUSH SCH (09:05)
[2018-07-14] MEDS: Senna/Docusate Sodium 8.6/50 MG Tablet PO SCH (09:06)
[2018-07-14] MEDS: MethylPREDNISolone Sod Succinate Inj 125 MG/2 ML Vial IV.PUSH SCH ×2 (09:06→10:46)
--- NOTE | 2018-07-14 10:32 | P.PNCC ---
Subjective Subjective Remarks/Hospital Course: 68yM transferred to [facility] for respiratory distress and hypoxia. The patient presented to the ED on 07/03 for suspected recurrent aspiration and unintentional weight loss, found to have overt aspiration when evaluated by speech therapy. He was seen by GI and a PEG was attempted but could not be placed due to his history of gastric bypass. The patient was then evaluated by general surgery and had a laparoscopic converted to open G tube placed on 07/[address] Briones. Since then, the patient has had infrequent fevers, had an episode of rapid A fib and hypotension, and has been given lasix for pulmonary edema. This morning, he was noted to have hypoxia requiring supplemental O2 via non-rebreather and a CXR showed significant bilateral infiltrates vs pulmonary edema. The patient reports that he feels "winded" and short and breath. He also reports cough productive of thick sputum for the past several days. He has been receiving tube feeds at goal and denies any aspiration events since having his G tube placed. 07/14: Patient refusing pulse ox monitoring or supplemental O2 this morning. He expresses frustration about still being in the hospital and says "I just want you all to leave me alone and let me go home". He is alert and oriented to person, place, and time. He also spoke with Tahmina Longoria (surgery INFECTION CONTROL MANAGER) and says that he would like to change his code status to DNR, also wants to pursue hospice care and to be discharged. Objective Vital Signs / I&O: Vital Signs 07/13/18 12:00 07/13/18 13:08 07/13/18 13:11 Temperature 98.2 F 98.2 F Pulse Rate 83 85 84 Respiratory Rate 23 18 19 Blood Pressure 105/70 Pulse Oximetry 100 99 98 07/13/18 13:15 07/13/18 13:20 07/13/18 13:35 Temperature Pulse Rate 88 84 88 Respiratory Rate 19 21 21 Blood Pressure 107/72 112/77 Pulse Oximetry 99 98 07/13/18 13:45 07/13/18 13:50 07/13/18 14:00 Temperature Pulse Rate 88 89 Respiratory Rate 18 19 Blood Pressure 109/75 Pulse Oximetry 95 92 L 91 L 07/13/18 14:05 07/13/18 14:20 07/13/18 14:35 Temperature Pulse Rate 89 86 86 Respiratory Rate 20 20 19 Blood Pressure 114/76 110/74 113/77 Pulse Oximetry 91 L 94 L 94 L 07/13/18 14:50 07/13/18 15:00 07/13/18 15:05 Temperature Pulse Rate 85 87 86 Respiratory Rate 19 20 20 Blood Pressure 116/80 113/76 Pulse Oximetry 95 96 96 07/13/18 15:20 07/13/18 15:35 07/13/18 15:50 Temperature Pulse Rate 88 91 H 85 Respiratory Rate 20 22 17 Blood Pressure 106/70 107/74 101/68 Pulse Oximetry 97 98 98 07/13/18 16:00 07/13/18 16:05 07/13/18 16:20 Temperature 98.4 F Pulse Rate 89 88 88 Respiratory Rate 19 20 23 Blood Pressure 105/72 109/76 Pulse Oximetry 97 98 92 L 07/13/18 16:35 07/13/18 16:50 07/13/18 16:55 Temperature Pulse Rate 82 82 84 Respiratory Rate 20 15 16 Blood Pressure 106/72 104/71 Pulse Oximetry 99 99 07/13/18 17:00 07/13/18 17:05 07/13/18 17:20 Temperature Pulse Rate 82 82 83 Respiratory Rate 14 14 15 Blood Pressure 98/69 L 96/66 L Pulse Oximetry 98 98 98 07/13/18 17:35 07/13/18 17:50 07/13/18 18:00 Temperature Pulse Rate 82 80 81 Respiratory Rate 13 13 12 Blood Pressure 94/66 L 92/64 L Pulse Oximetry 98 98 95 07/13/18 18:05 07/13/18 18:14 07/13/18 18:20 Temperature Pulse Rate 79 92 H 83 Respiratory Rate 13 22 19 Blood Pressure 95/67 L 97/69 L 98/67 L Pulse Oximetry 98 84 L 93 L 07/13/18 19:00 07/13/18 19:07 07/13/18 19:34 Temperature Pulse Rate 80 81 85 Respiratory Rate 17 18 22 Blood Pressure 96/66 L 96/61 L Pulse Oximetry 95 93 L 96 07/13/18 19:35 07/13/18 20:00 07/13/18 20:20 Temperature 97.4 F L Pulse Rate 85 84 81 Respiratory Rate 25 H 25 H 19 Blood Pressure 96/60 L 93/63 L 93/59 L Pulse Oximetry 97 98 99 07/13/18 21:00 07/13/18 21:35 07/13/18 22:00 Temperature Pulse Rate 79 78 78 Respiratory Rate 19 17 17 Blood Pressure 106/62 105/68 108/69 Pulse Oximetry 100 98 97 07/13/18 22:35 07/13/18 23:00 07/13/18 23:53 Temperature Pulse Rate 79 81 89 Respiratory Rate 17 18 16 Blood Pressure 108/71 112/74 Pulse Oximetry 96 96 07/14/18 00:00 07/14/18 01:00 07/14/18 01:35 Temperature 97.8 F Pulse Rate 94 H 80 78 Respiratory Rate 20 14 13 Blood Pressure 102/60 91/52 L 96/61 L Pulse Oximetry 96 97 97 07/14/18 02:00 07/14/18 03:00 07/14/18 03:44 Temperature Pulse Rate 77 89 90 Respiratory Rate 13 18 20 Blood Pressure 100/69 103/71 Pulse Oximetry 96 96 07/14/18 04:00 07/14/18 05:00 07/14/18 06:00 Temperature 97.6 F Pulse Rate 90 91 H 100 H Respiratory Rate 18 21 25 H Blood Pressure 111/74 109/69 109/71 Pulse Oximetry 94 L 93 L 07/14/18 06:48 Temperature Pulse Rate Respiratory Rate Blood Pressure Pulse Oximetry 92 L Intake & Output 07/13/18 07/14/18 07/14/18 18:59 06:59 18:59 Intake Total 943 / 943 750 / 750 Output Total 1400 / 1400 350 / 350 Balance -457 / -457 400 / 400 Weight 77 kg Intake: IV 450 / 450 50 / 50 Azithromycin Inj 500 MG In NS 250 / 250 Inj 250 ML @ 250 mls/hr IV.SIG Q24H [facility] Rx#:[id number] Zosyn 3.375 GM Premix 3.375 gm 100 / 100 50 / 50 In 50 ml @ 100 mls/hr IV.SIG Q6H [facility] Rx#:[id number] Rocephin Inj 1,000 MG In NS Inj 100 / 100 100 ML @ 200 mls/hr IV.SIG Q24H [facility] Rx#:[id number] Tube Feeding 373 / 373 640 / 640 Tube Irrigant 120 / 120 Water Bolus Amount 60 / 60 Output: Urine 1400 / 1400 350 / 350 Other: Date of Last Bowel Movement 07/13/18 # Bowel Movements 1 1 Result Diagrams: 07/14/18 05:03 07/14/18 05:03 Objective Remarks: GEN: Cachectic, ill-appearing male sitting in bed, appears upset, mildly agitated HEENT: NCAT NECK: No apparent JVD The patient would not allow me to examine his heart, lungs, abdomen, or extremities this morning. NEURO: Oriented to person/ place/ time, speech clear and fluent, answers questions appropriately, moves all extremities PSYCH: Mildly agitated, pushes staff away during exam, does not appear to be delirious or confused Assessment and Plan - Assessment and Plan Plan: 68yM with recurrent aspiration, unintentional weight loss, POD #6 s/p open G tube placement, respiratory distress/ hypoxia with significant bilateral pulmonary infiltrates. Now wishes to be transitioned to hospice care. NEURO: Chronic low back pain * Tylenol and oxycodone PRN pain/ fever CARDIO: Chronic atrial fibrillation Hypotension * Continue metoprolol and digoxin with hold parameters for hypotension/ bradycardia * Trop negative x 3 * 2D echo shows EF 55-60%, limited exam, PAP 48 mmHg * Will give another dose of bumex today PULM: History of pulmonary embolism Hypoxia, respiratory distress secondary to suspected HCAP/ pulmonary edema Previous smoking history * CXR shows significant bilateral pulmonary infiltrates concerning for HCAP/ pulmonary edema. Patient pulled out his IV this morning and does not want another placed. Will either start PO antibiotics and transition steroids to PO vs discontinue if patient is going to transition to hospice care * Scheduled and PRN nebs * Incentive spirometer * Patient currently declining supplemental O2/ high flow/ bipap and pulse ox monitoring F/E/N: Severe protein calorie malnutrition as evidenced by temporal wasting, cachexia, hypoalbuminemia * Continue tube feeds and protein supplements * Add multivitamin * Continue megace * Prealbumin very low (6) * ICU electrolyte protocol ID: Healthcare associated pneumonia * Blood cultures from 07/10 show no growth to date, cultures from yesterday pending * Urine culture from 07/10 grew engel-sensitive pseudomonas * Currently on rocephin/ azithro for HCAP. Patient pulled out his IV this morning and does not want another placed. Will either start PO antibiotics vs discontinue if patient is going to transition to hospice care HEME: Acute normocytic anemia * Currently stable * Nutritional support as detailed above PROPHY: * SCDs, lovenox * PPI OVERALL: This patient is critically ill with acute hypoxia, respiratory distress , and significant bilateral pulmonary disease. He is refusing pulse ox, supplemental O2, and discontinued his only IV this morning. He wishes to be evaluated by our hospice team. He is awake and oriented, appears to have insight into the severity of his disease, and has capacity to make his own decisions. Level 2 follow up To help prompt me to consider important information that might be impacting today's encounter and assessment, information from prior notes written by myself or my colleagues may have been "brought forward" into today's note. My signature on this note, however, is an attestation that I personally performed the exam, history, and/or decision-making noted today, and, unless otherwise indicated, the interactions with patient, family, and staff as well as the review of records all occurred today. I also attest that the listed assessment and stated plan reflect my best clinical judgment today based on the combination of historical information, prior notes, and today's exam/ interactions. Code Status: DNR
--- NOTE | 2018-07-14 11:02 | P.CONPAL ---
Consult Service: Palliative Care Requesting Physician: Tahmina Longoria Reason for Consult: a. To assist with evaluation and management of symptoms including: Dysphagia, pain, physical deconditioning b. To assist medical decision maker(s) with: better understanding of current medical conditions; weighing benefits/burdens of medical treatment options; making medical treatment decisions. Primary Care Provider: Heriberto Gan MD History of Present Illness History of Present Illness: Mr. Head is a 68 years old male with a past medical history of atrial fibrillation, pulmonary embolism on Xarelto, hypertension, gastroesophageal reflux disease, anxiety, depression and a history of gastric bypass 6 years ago. Patient presented to the emergency room on 07/03/2018 with complaints of worsening substernal/nonradiating chest pain and increased difficulty swallowing 2 days prior to presenting to the emergency room. Patient reported in the emergency room that he has had intermittent chest pain for the past several years and he has had difficulty with swallowing solids or liquids. ER course: * Vital signs: Pulse 68, respirations 14, BP 137/96, O2 saturation 96% * EKG revealed sinus rhythm with low QRS voltage in extremity leads anteroseptal myocardial infarction. * Laboratory workup revealed WBC 6.0, hemoglobin 10.3, hematocrit 31.3, platelet count 310, sodium 140, potassium 4.3, BUN/creatinine 16/1.10, random glucose 63, calcium 7.5, troponin less than 0.02, total protein 5.1, albumin 1.9 * Chest CTA revealed no evidence of acute pulmonary emboli, COPD, minimal left lower lobe airspace disease characteristic of atelectasis, hepatic steatosis. * Chest x-ray revealed COPD and chest with no evidence of acute process. * Speech therapy consulted for a swallow evaluation, patient noted to have moderate pharyngeal phase dysphagia with or if it signs and symptoms of aspiration, recommended n.p.o. with alternate means for nutrition/hydration. * Patient admitted for further evaluation and treatment. GI Dr. Dietz consulted on 07/04/18 for evaluation of patient with dysphagia, recommended percutaneous endoscopic gastrostomy tube placement or placement of a surgical jejunostomy tube if there are complications met due to prior gastric surgery. Patient underwent panendoscopy on 07/04/18. General surgery consulted on 07/05/18 for evaluation and management of patient with dysphagia and a history of gastric bypass, recommended laparoscopic gastrostomy tube versus laparoscopic jejunostomy tube versus open procedure. Patient underwent laparoscopic converted to open exploratory laparotomy with lysis of adhesions and gastrostomy tube insertion into gastric remnant on . Patient was started on tube feeds. On 07/12/18 patient had an episode of dyspnea and hypoxemia overnight with O2 saturation dropping to 80s. Halicat was called and patient received 500 and mils bolus IV fluids. Chest x-ray showing pulmonary edema. On 07/13 patient was transferred to [facility] after he developed tachycardia with heart rate in the 140s and acute hypoxia. Critical care physician , Dr. Hollis for evaluation and management with respiratory distress and hypoxia. Chest x-ray on 07/13/18 revealed severe diffuse bilateral infiltrates consistent with severe pulmonary edema versus pneumonia and small bilateral pleural effusions. 2D echocardiogram on 07/13/18 revealed normal left ventricular systolic function with an estimated ejection fraction in the range of 55-60%. Patient has been transfused 1 unit PRBC for hemoglobin of 7.5 on 07/13/18. Patient changed his CODE STATUS to DNR today after meeting with surgical [facility] on and he also indicated that he wants to pursue hospice care and be discharged home. Palliative care consulted to assist with symptom management and establishment of goals of medical treatment. Laboratory workup today revealing WBC 5.1, hemoglobin 7.5, hematocrit 21.9, platelet count 198, sodium 145, potassium 3.5, BUN/creatinine 26/0 7 0, calcium 7.0, total protein 4.8, albumin 1.2. Patient seen and examined in his room. Dual visit with Tahmina Longoria (general surgery [facility]). Upon introducing palliative care and its role in symptom management, patient yelling "Get out of here" and requesting to be left alone or taken out of the hospital. Patient is oriented to self, place and partly situation. He does not have insight regarding his medical condition. Patient` s gown is saturated with tube feeding and gastric content. It appears patient, patient has disconnected tube feeding from his PEG tube and he has partially pulled out his PEG tube. Patient refusing to have staff provide care or even get close to him. After persuasion, managed to assist patient with partially cleaning him and changing his gown. Per bedside RN, patient is refusing to have nasal cannula on, has removed EKG wires, pulled out his peripheral IVs and pulse oximetry. Managed to put pulse oximetry and patient's O2 saturation on room air fluctuating from high 50s to low 60s. Patient has a living will scanned in our electronic medical records from a previous hospitalization. His Earl Head was his healthcare agent and his sister Madison Stanford was his #1 alternate agent and his other sister Tricia Medina is his #2 Alternate agent. Telephone call placed to Tricia Medina ([phone]) who opted out of decision making. Patient's parents are . Patient never had children. His only other living sibling who would be patient's healthcare proxy according to [place] statute would be his brother Heriberto Mishra. Long telephone conversation with Heriberto Mishra (HCP). Obtained patient's psychosocial history and medical history. Updated him on patient's hospital course, complications and current medical status. Patient's brother states that he has been in contact with his brother via telephone frequently after patient lost his significant other about a month ago. He mentions that they have been discussing his wishes prior to this hospitalization. He mentions that patient's health has been failing in the past few months. Notified him that patient was able to make himself DNR earlier on when he was coherent and patient's brother is supportive of patient's decision. After notifying him about patient's agitation and attempts to pulling out PEG tube, refusing oxygen , pulling out IVs and possibility of restraining patient, patient's brother stated that he would not want his brother to be restrained. Facilitated communication between patient and brother via telephone. After reviewing patient's medical history and ongoing complications and comorbidities, patient' s brother feels it would be more appropriate to transition patient to comfort care only. Introduced hospice philosophy and benefits. Patient's brother would like patient to transition to comfort care through hospice services only. He feels that this is what patient would like based on their conversations prior to hospitalization. Hospice consult placed. Case discussed with bedside RN, remote sensing technician and Dr. Hollis. Function/Cognitive Trajectory: Patient lives alone. Patient has had unintentional 40 pound weight loss over the past 6 months. Patient reported difficulty swallowing and has been eating soup only. Patient has not been able to eat meat in the past 6 years due to sense of choking. Prior to this hospitalization, patient ambulated with a walker or cane due to gait limited by lightheadedness, weakness. Patient reported a fall in the past month. Prior to 07/14/18 patient was able to verbalize his needs. Review of Systems Constitutional: Reports anorexia, Reports fatigue, Reports fever(s), Reports lack of energy, Reports weight loss Eyes: Denies bulging eyes Ears, Nose, Mouth, and Throat: Reports difficulty swallowing, Denies abnormal hearing Cardiovascular: Reports chest pain, Reports foot swelling, Reports generalized swelling, Reports leg swelling, Reports shortness of breath Respiratory: Reports shortness of breath, Reports shortness of breath with activity, Denies cough Gastrointestinal: Reports difficulty swallowing, Reports vomiting, Denies nausea Genitourinary: Denies blood in urine, Denies urinary incontinence Musculoskeletal: Reports limited joint movement Skin/Breast: Reports unusual bruising, Denies sores Neurologic: Reports frequent falls, Denies abnormal hearing, Denies abnormal speech Psychiatric: Reports anxiety, Reports depression (Recently lost his partner, sister in October and 2 kids 3 months ago), Denies change in appetite Endocrine: Denies increased urination Hematologic/Lymphatic: Reports easy bruising Review of systems obtained partially from patient, family, electronic medical records and clinical observation. . [facility] - History History Provided By: Medical Record - Medical History Medical History: Medical History (Last Reviewed 07/14/18 @ 07:34 by Carlotta Beltran Corporate Communications Specialist, LOAN COLLECTOR) History of pulmonary embolism (Acute) History of atrial fibrillation (Acute) GERD (gastroesophageal reflux disease) (Acute) Anxiety and depression (Acute) Hypertension (Acute) - Surgical History Surgical History: Surgical History (Last Reviewed 07/13/18 @ 11:37 by Sabina Hollis DO) History of cardiac radiofrequency ablation (Acute) Hx of cholecystectomy (Acute) H/O knee surgery (Acute) Hx of gastric bypass (Acute) Previous back surgery (Acute) - Family History Family History: Family History (Last Reviewed 07/13/18 @ 11:37 by Sabina Hollis DO) Mother History of heart disease Father History of heart disease Grandparent History of diabetes mellitus Sister History of lung cancer - Tobacco History Second Hand Smoke Exposure: No Tobacco Use In Past 30 Days: No Smoking Status: Former smoker Tobacco Type: Cigarettes Number of Pack Years (if former smoker): 90 - Alcohol History How Often Do You Have a Drink Containing Alcohol: Never - Substance Use History Substance History: No History of Abuse - Travel History Recent Travel in the [place] Within the Last 8 Weeks: No Recent Travel Out of the Country Within the Last 8 Weeks: No - Immunization History Tetanus Immunization: Unsure Hx Influenza Vaccine This Season: Yes Medications and Allergies Active Medications: Active Medications Acetaminophen (Tylenol) 650 mg PO Q6H PRN PRN Reason: PAIN 1-10 AND/OR FEVER >101F Acetylcysteine (Mucomyst 20% Neb) 2 ml NEB Q6HR NEB SHAHLA Stop: 07/15/18 10:01 Last Admin: 07/14/18 08:00 Dose: Not Given Al Hydroxide/Mg Hydroxide (Milk Of Magnbear Liq) 30 ml PO Q12H PRN PRN Reason: Mild Constipation Albuterol (Duoneb Neb (Prn)) 1 ampul NEB Q2HR NEB PRN PRN Reason: WHEEZING Albuterol (Duoneb Neb (Shahla)) 1 ampul NEB Q4HR NEB SHAHLA Last Admin: 07/14/18 08:00 Dose: Not Given Bisacodyl (Dulcolax Supp) 10 mg RECTAL DAILY PRN PRN Reason: SEVERE CONSITIPATION Chlorhexidine Gluconate (Chlorhexidine 2% Cloth) 3 pack TOPICAL DAILY@0400 SHAHLA Stop: 07/19/18 03:59 Last Admin: 07/14/18 05:44 Dose: 3 pack Chlorhexidine Gluconate (Chlorhexidine 2% Cloth) 3 pack TOPICAL DAILY@0400 PRN PRN Reason: Extra cloth needed Stop: 07/19/18 03:59 Dextrose (D50w Vial) 50 ml IV.PUSH UNSCH PRN PRN Reason: PER HYPOGLYCEMIA PROTOCOL Enoxaparin Sodium (Lovenox Inj) 60 mg SQ Q12HR SHAHLA Last Admin: 07/14/18 09:05 Dose: Not Given Glucagon (Glucagon Inj) 1 mg OTHER PRN PRN PRN Reason: for Hypoglycemia Protocol Hydromorphone HCl (Dilaudid Pf Inj) 1 mg IV.PUSH Q3H PRN PRN Reason: breakthrough pain Last Admin: 07/13/18 23:48 Dose: 1 mg Sodium Chloride (Ns Inj) 500 mls @ 30 mls/hr IV.SIG .Q10H SHAHLA Last Admin: 07/05/18 21:56 Dose: Not Given Magnesium Sulfate 4 gm/ Sodium (Chloride) 100 mls @ 50 mls/hr IV.SIG UNSCH PRN PRN Reason: For Magnesium 0.9 - 1.1 mg/dL Potassium Chloride (Kcl 40 Meq Premix Inj) 40 meq in 100 mls @ 25 mls/hr IV.SIG Q2H PRN PRN Reason: For Potassium 2.8 - 3.2 mEq/L Potassium Chloride (Kcl 20 Meq Premix Inj) 20 meq in 100 mls @ 50 mls/hr IV.SIG Q2H PRN PRN Reason: For Potassium 3.3 - 3.5 mEq/L Potassium Chloride (Kcl 40 Meq Premix Inj) 40 meq in 100 mls @ 25 mls/hr IV.SIG UNSCH PRN PRN Reason: For Potassium 3.3 - 3.5 mEq/L Potassium Chloride (Kcl 20 Meq Premix Inj) 20 meq in 100 mls @ 50 mls/hr IV.SIG Q2H PRN PRN Reason: For Potassium 2.8 - 3.2 mEq/L Potassium Phosphate 30 mmol/ (Sodium Chloride) 260 mls @ 42 mls/hr IV.SIG UNSCH PRN PRN Reason: SEE LABEL COMMENTS Sodium Phosphate 30 mmol/ (Sodium Chloride) 260 mls @ 42 mls/hr IV.SIG UNSCH PRN PRN Reason: For Phosphorus < 2.5 mg/dL Magnesium Sulfate 2 gm/ Sodium (Chloride) 100 mls @ 50 mls/hr IV.SIG UNSCH PRN PRN Reason: For Magnesium 1.2 - 1.6 mg/dL Piperacillin/Tazobactam/Dextrose (Zosyn 3.375 Gm Premix) 3.375 gm in 50 mls @ 100 mls/hr IV.SIG Q6H SHAHLA Last Admin: 07/14/18 05:44 Dose: 100 mls/hr Azithromycin 500 mg/ Sodium (Chloride) 250 mls @ 250 mls/hr IV.SIG Q24H SHAHLA Last Infusion: 07/13/18 13:05 Dose: Infused Lorazepam (Ativan Inj) 1 mg IV.PUSH Q6H PRN PRN Reason: ANXIETY AND/OR INSOMNIA Last Admin: 07/13/18 20:55 Dose: 1 mg Magnesium Oxide (Mag-Ox) 800 mg PO UNSCH PRN PRN Reason: For Magnesium 1.2 - 1.6 mg/dL Megestrol Acetate (Megace) 40 mg PO DAILY [facility] Last Admin: 07/14/18 09:02 Dose: 40 mg Methylprednisolone Sodium Succinate (Solumedrol Inj) 60 mg IV.PUSH Q12HR [facility] Last Admin: 07/14/18 09:06 Dose: 60 mg Metoprolol Tartrate (Lopressor) 25 mg G-TUBE TID [facility] Last Admin: 07/14/18 09:02 Dose: 25 mg Multivitamins/Folic Acid/Vitamin C (Flintstones) 1 tab CHEW DAILY [facility] Last Admin: 07/14/18 09:05 Dose: 1 tab Ondansetron HCl (Zofran Inj) 4 mg IV.PUSH Q6H PRN PRN Reason: NAUSEA OR VOMITING Last Admin: 07/13/18 15:14 Dose: 4 mg Oxycodone HCl (Roxicodone Intensol Liq) 5 mg PO Q3H PRN PRN Reason: Pain 1-10 Last Admin: 07/13/18 15:13 Dose: 5 mg Pantoprazole Sodium (Protonix Inj) 40 mg IV.PUSH Q24H [facility] Last Admin: 07/13/18 15:13 Dose: 40 mg Potassium Bicarb/Potassium Chloride (K-Lyte Cl Eff) 50 meq PO UNSCH PRN PRN Reason: For Potassium 3.3 - 3.5 mEq/L Potassium Phosphate (K-Phos Original) 2,000 mg PO Q4H PRN PRN Reason: Phosphorus Less Than 2.5 mg/dL Potassium Phosphate (K-Phos Original) 2,000 mg PO UNSCH PRN PRN Reason: SEE LABEL COMMENTS Senna/Docusate Sodium (Candi-Colace) 1 tab PO BID [facility] Last Admin: 07/14/18 09:06 Dose: Not Given Sennosides (Senokot) 17.2 mg PO Q12H PRN PRN Reason: Moderate Constipation Sodium Chloride (Ns Flush) 2 ml IV.FLUSH BID [facility] Last Admin: 07/14/18 09:05 Dose: 2 ml Sodium Chloride (Ns Flush) 2 ml IV.FLUSH PRN PRN PRN Reason: FLUSH AFTER USING IV ACCESS Sodium Chloride (Ns Flush) 2 ml IV.FLUSH BID [facility] Last Admin: 07/14/18 09:05 Dose: Not Given Sodium Chloride (Ns Flush) 2 ml IV.FLUSH PRN PRN PRN Reason: FLUSH AFTER USING IV ACCESS Allergies Allergy/AdvReac Type Severity Reaction Status Date / Time No Known Allergies Allergy Verified 07/03/18 08:16 Home Medications Medication Instructions Recorded Confirmed Type lorazepam 1 mg PO BID 01/31/18 07/03/18 History losartan 25 mg PO DAILY 01/31/18 07/03/18 History metoprolol tartrate 25 mg PO BID 01/31/18 07/03/18 History zolpidem 10 mg PO HS 01/31/18 07/03/18 History fluoxetine [Prozac] 40 mg PO DAILY 03/20/18 07/03/18 History [place] 10 - 325 tab PO TID PRN 04/25/18 07/03/18 History rivaroxaban [Xarelto] 20 mg PO DAILY 07/03/18 07/03/18 History Advance Directives Advance Directives Date on File: 08/26/05 Living Will: Yes Healthcare Surrogate: Yes (HCS: Earl Head ()) Health Care Surrogate Name and Number: Alt 1:Hien Wallace() Alt 2: Adam [phone](optedout Power of Refining Equipment Operator: No Documented care wishes: "If possible, I want my urgent with me at the time of my . I hope that pain and discomfort can be kept to a minimum. I would rather be awakened away for the last pressures days, unless I am in too much pain to enjoy them anyway. I want my family to know I do not fear . Baptism for giving last rights if possible. If any body parts are salvageable, they are to be harvested before my cremation. All end-of-life decisions are to be made by my primary healthcare agent." Family/friends goals: Family (Brother) would like patient to transition to comfort care only through hospice services. . Ethical and Legal Issues: None identified at this time. . Physical Exam Vital Signs: Vital Signs - 24 hr 07/13/18 12:00 07/13/18 13:08 07/13/18 13:11 Temperature 98.2 F 98.2 F Pulse Rate 83 85 84 Respiratory Rate 23 18 19 Blood Pressure 105/70 Pulse Oximetry 100 99 98 07/13/18 13:15 07/13/18 13:20 07/13/18 13:35 Temperature Pulse Rate 88 84 88 Respiratory Rate 19 21 21 Blood Pressure 107/72 112/77 Pulse Oximetry 99 98 07/13/18 13:45 07/13/18 13:50 07/13/18 14:00 Temperature Pulse Rate 88 89 Respiratory Rate 18 19 Blood Pressure 109/75 Pulse Oximetry 95 92 L 91 L 07/13/18 14:05 07/13/18 14:20 07/13/18 14:35 Temperature Pulse Rate 89 86 86 Respiratory Rate 20 20 19 Blood Pressure 114/76 110/74 113/77 Pulse Oximetry 91 L 94 L 94 L 07/13/18 14:50 07/13/18 15:00 07/13/18 15:05 Temperature Pulse Rate 85 87 86 Respiratory Rate 19 20 20 Blood Pressure 116/80 113/76 Pulse Oximetry 95 96 96 07/13/18 15:20 07/13/18 15:35 07/13/18 15:50 Temperature Pulse Rate 88 91 H 85 Respiratory Rate 20 22 17 Blood Pressure 106/70 107/74 101/68 Pulse Oximetry 97 98 98 07/13/18 16:00 07/13/18 16:05 07/13/18 16:20 Temperature 98.4 F Pulse Rate 89 88 88 Respiratory Rate 19 20 23 Blood Pressure 105/72 109/76 Pulse Oximetry 97 98 92 L 07/13/18 16:35 07/13/18 16:50 07/13/18 16:55 Temperature Pulse Rate 82 82 84 Respiratory Rate 20 15 16 Blood Pressure 106/72 104/71 Pulse Oximetry 99 99 07/13/18 17:00 07/13/18 17:05 07/13/18 17:20 Temperature Pulse Rate 82 82 83 Respiratory Rate 14 14 15 Blood Pressure 98/69 L 96/66 L Pulse Oximetry 98 98 98 07/13/18 17:35 07/13/18 17:50 07/13/18 18:00 Temperature Pulse Rate 82 80 81 Respiratory Rate 13 13 12 Blood Pressure 94/66 L 92/64 L Pulse Oximetry 98 98 95 07/13/18 18:05 07/13/18 18:14 07/13/18 18:20 Temperature Pulse Rate 79 92 H 83 Respiratory Rate 13 22 19 Blood Pressure 95/67 L 97/69 L 98/67 L Pulse Oximetry 98 84 L 93 L 07/13/18 19:00 07/13/18 19:07 07/13/18 19:34 Temperature Pulse Rate 80 81 85 Respiratory Rate 17 18 22 Blood Pressure 96/66 L 96/61 L Pulse Oximetry 95 93 L 96 07/13/18 19:35 07/13/18 20:00 07/13/18 20:20 Temperature 97.4 F L Pulse Rate 85 84 81 Respiratory Rate 25 H 25 H 19 Blood Pressure 96/60 L 93/63 L 93/59 L Pulse Oximetry 97 98 99 07/13/18 21:00 07/13/18 21:35 07/13/18 22:00 Temperature Pulse Rate 79 78 78 Respiratory Rate 19 17 17 Blood Pressure 106/62 105/68 108/69 Pulse Oximetry 100 98 97 07/13/18 22:35 07/13/18 23:00 07/13/18 23:53 Temperature Pulse Rate 79 81 89 Respiratory Rate 17 18 16 Blood Pressure 108/71 112/74 Pulse Oximetry 96 96 07/14/18 00:00 07/14/18 01:00 07/14/18 01:35 Temperature 97.8 F Pulse Rate 94 H 80 78 Respiratory Rate 20 14 13 Blood Pressure 102/60 91/52 L 96/61 L Pulse Oximetry 96 97 97 07/14/18 02:00 07/14/18 03:00 07/14/18 03:44 Temperature Pulse Rate 77 89 90 Respiratory Rate 13 18 20 Blood Pressure 100/69 103/71 Pulse Oximetry 96 96 07/14/18 04:00 07/14/18 05:00 07/14/18 06:00 Temperature 97.6 F Pulse Rate 90 91 H 100 H Respiratory Rate 18 21 25 H Blood Pressure 111/74 109/69 109/71 Pulse Oximetry 94 L 93 L 07/14/18 06:48 Temperature Pulse Rate Respiratory Rate Blood Pressure Pulse Oximetry 92 L I&O: Intake & Output 07/12/18 07/13/18 07/14/18 07/15/18 06:59 06:59 06:59 06:59 Intake Total 740 / 740 714 / 714 1693 / 1693 Output Total 2625 / 2625 600 / 600 1750 / 1750 Balance -1885 / -1885 114 / 114 -57 / -57 Weight 78 kg 78 kg 77 kg Physical Exam: CONSTITUTIONAL/GENERAL: This is a cachectic, chronically ill looking patient, in mild respiratory distress. TUBES/LINES/DRAINS: PEG tube SKIN: Pale. Ecchymoses on upper extremities. No wounds seen anteriorly. HEAD: Atraumatic. Normocephalic. EYES: Pupils equal and round and reactive. Extraocular motions intact. No scleral icterus. Fundi not examined. ENT: Hearing grossly normal. Nose without bleeding or purulent drainage. Dry lips. NECK: Trachea midline. Supple, nontender. CARDIOVASCULAR: Patient refused to have heart sounds auscultated. No JVD. Weak pedal pulses. RESPIRATORY/CHEST: Symmetric, unlabored respirations. Patient refused to have lung sounds auscultated. O2 sat in the high 50s to low 60s GASTROINTESTINAL: Abdomen soft, non-tender, nondistended. Partially pulled out PEG tube. Patient is holding his PEG tube and attempting to pull it out. GENITOURINARY: Without palpable bladder distension. MUSCULOSKELETAL: Extremities without clubbing, cyanosis, or edema. No joint tenderness or effusion noted. No calf tenderness. No mottling or clubbing. LYMPHATICS: Did not assess NEUROLOGICAL: Awake and alert oriented to self, place and time. Confused to situation. Spontaneously moving all 4 extremities, refusing to follow commands. PSYCHIATRIC: Patient is partially confused and agitated. . Diagnostic Tests Laboratory: Laboratory Results - last 72 hr 07/10/18 07/11/18 07/11/18 04:45 16:47 16:47 WBC 9.0 RBC 2.64 L Hgb 8.7 L Hct 25.6 L MCV 96.8 MCH 32.9 MCHC 34.0 RDW 16.4 Plt Count 147 L MPV 8.5 Prelim Diff (Auto) Manual diff required Neut % (Auto) Lymph % (Auto) [place] % (Auto) Eos % (Auto) Baso % (Auto) Neut # (Auto) Lymph # (Auto) [place] # (Auto) Eos # (Auto) Baso # (Auto) WBC Differential Manual diff final Seg Neuts % (Manual) 94 H Band Neuts % (Manual) 3 Lymphocytes % (Manual) 2 L Monocytes % (Manual) 1 Abs Neuts (Manual) 8.7 H Differential Comment . Platelet Estimate Normal Platelet Morphology Normal Target Cells 1+ H Puncture Site Patient Temperature O2 Saturation ABG pH ABG pCO2 ABG pO2 ABG HCO3 ABG O2 Content ABG Base Excess ABG Methemoglobin Niraj Test Hemoglobin Carboxyhemoglobin O2 Delivery Device Liter Flow Inspired O2 Critical Value Sodium 143 Potassium 3.6 Chloride 106 Carbon Dioxide 32.3 H Anion Gap 5 BUN 18 Creatinine 0.71 Estimated GFR Greater than 89 Random Glucose 100 Lactic Acid Calcium 6.9 L* Calcium Adj for Albumin 9.3 Phosphorus Magnesium Total Bilirubin AST ALT Alkaline Phosphatase Troponin I B-Natriuretic Peptide Total Protein Albumin 1.0 L Prealbumin Urine Color Fanny Urine Clarity Cloudy H Urine pH 5.0 Ur Specific [place] 1.018 Urine Protein 30 H Urine Glucose (UA) Negative Urine Ketones Negative Urine Occult Blood Large H Urine Nitrate Negative Urine Bilirubin Negative Urine Urobilinogen Less than 2 Ur Leukocyte Esterase Large H Urine RBC 27 H Urine WBC Urine WBC Clumps Occasional H Ur Squamous Epith Cells 1 Urine Bacteria Moderate H Urine Mucus Many H Micro UA Comment Cath-culture ind Urine Culture Comments Cath-cult indicated Nasal Screen MRSA (PCR) 07/12/18 07/12/18 07/12/18 01:08 05:43 05:45 WBC 6.4 RBC 2.30 L Hgb 7.5 L Hct 21.7 L MCV 94.5 MCH 32.7 MCHC 34.6 RDW 16.0 Plt Count 134 L MPV 9.0 Prelim Diff (Auto) Neut % (Auto) Lymph % (Auto) [place] % (Auto) Eos % (Auto) Baso % (Auto) Neut # (Auto) Lymph # (Auto) [place] # (Auto) Eos # (Auto) Baso # (Auto) WBC Differential Seg Neuts % (Manual) Band Neuts % (Manual) Lymphocytes % (Manual) Monocytes % (Manual) Abs Neuts (Manual) Differential Comment Platelet Estimate Platelet Morphology Target Cells Puncture Site Patient Temperature O2 Saturation ABG pH ABG pCO2 ABG pO2 ABG HCO3 ABG O2 Content ABG Base Excess ABG Methemoglobin Niraj Test Hemoglobin Carboxyhemoglobin O2 Delivery Device Liter Flow Inspired O2 Critical Value Sodium 144 Potassium 3.6 Chloride 105 Carbon Dioxide 35.0 H Anion Gap 4 L BUN 20 H Creatinine 0.69 Estimated GFR Greater than 89 Random Glucose 91 Lactic Acid Calcium 6.8 L* Calcium Adj for Albumin 9.3 Phosphorus Magnesium Total Bilirubin AST ALT Alkaline Phosphatase Troponin I Less than 0.02 L B-Natriuretic Peptide Total Protein Albumin 0.9 L Prealbumin Urine Color Urine Clarity Urine pH Ur Specific [place] Urine Protein Urine Glucose (UA) Urine Ketones Urine Occult Blood Urine Nitrate Urine Bilirubin Urine Urobilinogen Ur Leukocyte Esterase Urine RBC Urine WBC Urine WBC Clumps Ur Squamous Epith Cells Urine Bacteria Urine Mucus Micro UA Comment Urine Culture Comments Nasal Screen MRSA (PCR) 07/13/18 07/13/18 07/13/18 04:58 04:58 05:45 WBC 6.0 RBC 2.61 L Hgb 8.5 L Hct 25.0 L MCV 96.1 MCH 32.8 MCHC 34.1 RDW 15.9 Plt Count 168 MPV 8.5 Prelim Diff (Auto) Neut % (Auto) Lymph % (Auto) [place] % (Auto) Eos % (Auto) Baso % (Auto) Neut # (Auto) Lymph # (Auto) [place] # (Auto) Eos # (Auto) Baso # (Auto) WBC Differential Seg Neuts % (Manual) Band Neuts % (Manual) Lymphocytes % (Manual) Monocytes % (Manual) Abs Neuts (Manual) Differential Comment Platelet Estimate Platelet Morphology Target Cells Puncture Site Right radial Patient Temperature 98.6 O2 Saturation 94 ABG pH 7.54 H* ABG pCO2 37 L ABG pO2 72 ABG HCO3 32 H ABG O2 Content 13.7 ABG Base Excess 8.7 H ABG Methemoglobin 1.1 Niraj Test Present Hemoglobin 10.4 L Carboxyhemoglobin 1.8 O2 Delivery Device Non-rebreathing mask Liter Flow 15.00 Inspired O2 100 Critical Value Yes Sodium 142 Potassium 3.6 Chloride 106 Carbon Dioxide 30.0 Anion Gap 6 BUN 22 H Creatinine 0.77 Estimated GFR Greater than 89 Random Glucose 105 Lactic Acid Calcium 7.5 L Calcium Adj for Albumin Phosphorus Magnesium Total Bilirubin AST ALT Alkaline Phosphatase Troponin I B-Natriuretic Peptide Total Protein Albumin Prealbumin Urine Color Urine Clarity Urine pH Ur Specific [place] Urine Protein Urine Glucose (UA) Urine Ketones Urine Occult Blood Urine Nitrate Urine Bilirubin Urine Urobilinogen Ur Leukocyte Esterase Urine RBC Urine WBC Urine WBC Clumps Ur Squamous Epith Cells Urine Bacteria Urine Mucus Micro UA Comment Urine Culture Comments Nasal Screen MRSA (PCR) 07/13/18 07/13/18 07/13/18 09:23 09:23 12:15 WBC RBC Hgb Hct MCV MCH MCHC RDW Plt Count MPV Prelim Diff (Auto) Neut % (Auto) Lymph % (Auto) [place] % (Auto) Eos % (Auto) Baso % (Auto) Neut # (Auto) Lymph # (Auto) [place] # (Auto) Eos # (Auto) Baso # (Auto) WBC Differential Seg Neuts % (Manual) Band Neuts % (Manual) Lymphocytes % (Manual) Monocytes % (Manual) Abs Neuts (Manual) Differential Comment Platelet Estimate Platelet Morphology Target Cells Puncture Site Patient Temperature O2 Saturation ABG pH ABG pCO2 ABG pO2 ABG HCO3 ABG O2 Content ABG Base Excess ABG Methemoglobin Niraj Test Hemoglobin Carboxyhemoglobin O2 Delivery Device Liter Flow Inspired O2 Critical Value Sodium Potassium Chloride Carbon Dioxide Anion Gap BUN Creatinine Estimated GFR Random Glucose Lactic Acid 1.9 Calcium Calcium Adj for Albumin Phosphorus Magnesium Total Bilirubin AST ALT Alkaline Phosphatase Troponin I 0.03 B-Natriuretic Peptide 267 H Total Protein Albumin Prealbumin Urine Color Urine Clarity Urine pH Ur Specific [place] Urine Protein Urine Glucose (UA) Urine Ketones Urine Occult Blood Urine Nitrate Urine Bilirubin Urine Urobilinogen Ur Leukocyte Esterase Urine RBC Urine WBC Urine WBC Clumps Ur Squamous Epith Cells Urine Bacteria Urine Mucus Micro UA Comment Urine Culture Comments Nasal Screen MRSA (PCR) 07/13/18 07/13/18 07/13/18 14:00 16:13 21:06 WBC RBC Hgb Hct MCV MCH MCHC RDW Plt Count MPV Prelim Diff (Auto) Neut % (Auto) Lymph % (Auto) [place] % (Auto) Eos % (Auto) Baso % (Auto) Neut # (Auto) Lymph # (Auto) [place] # (Auto) Eos # (Auto) Baso # (Auto) WBC Differential Seg Neuts % (Manual) Band Neuts % (Manual) Lymphocytes % (Manual) Monocytes % (Manual) Abs Neuts (Manual) Differential Comment Platelet Estimate Platelet Morphology Target Cells Puncture Site Patient Temperature O2 Saturation ABG pH ABG pCO2 ABG pO2 ABG HCO3 ABG O2 Content ABG Base Excess ABG Methemoglobin Niraj Test Hemoglobin Carboxyhemoglobin O2 Delivery Device Liter Flow Inspired O2 Critical Value Sodium Potassium Chloride Carbon Dioxide Anion Gap BUN Creatinine Estimated GFR Random Glucose Lactic Acid Calcium Calcium Adj for Albumin Phosphorus Magnesium Total Bilirubin AST ALT Alkaline Phosphatase Troponin I 0.02 0.02 B-Natriuretic Peptide Total Protein Albumin Prealbumin Urine Color Urine Clarity Urine pH Ur Specific [place] Urine Protein Urine Glucose (UA) Urine Ketones Urine Occult Blood Urine Nitrate Urine Bilirubin Urine Urobilinogen Ur Leukocyte Esterase Urine RBC Urine WBC Urine WBC Clumps Ur Squamous Epith Cells Urine Bacteria Urine Mucus Micro UA Comment Urine Culture Comments Nasal Screen MRSA (PCR) Not detected 07/14/18 07/14/18 05:03 05:03 WBC 5.1 RBC 2.28 L Hgb 7.5 L Hct 21.9 L MCV 95.9 MCH 33.1 MCHC 34.5 RDW 16.1 Plt Count 198 MPV 8.9 Prelim Diff (Auto) Neut % (Auto) 92.5 H Lymph % (Auto) 4.8 L [place] % (Auto) 2.6 Eos % (Auto) 0.0 Baso % (Auto) 0.1 Neut # (Auto) 4.8 Lymph # (Auto) 0.2 L [place] # (Auto) 0.1 Eos # (Auto) 0.0 Baso # (Auto) 0.0 WBC Differential . Seg Neuts % (Manual) Band Neuts % (Manual) Lymphocytes % (Manual) Monocytes % (Manual) Abs Neuts (Manual) Differential Comment Auto diff final Platelet Estimate Platelet Morphology Target Cells Puncture Site Patient Temperature O2 Saturation ABG pH ABG pCO2 ABG pO2 ABG HCO3 ABG O2 Content ABG Base Excess ABG Methemoglobin Niraj Test Hemoglobin Carboxyhemoglobin O2 Delivery Device Liter Flow Inspired O2 Critical Value Sodium 145 Potassium 3.5 Chloride 105 Carbon Dioxide 32.9 H Anion Gap 7 BUN 26 H Creatinine 0.70 Estimated GFR Greater than 89 Random Glucose 155 H Lactic Acid Calcium 7.0 L* Calcium Adj for Albumin 9.2 Phosphorus 0.4 L Magnesium 1.8 Total Bilirubin 0.3 AST 12 L ALT 13 Alkaline Phosphatase 85 Troponin I B-Natriuretic Peptide Total Protein 4.8 L Albumin 1.2 L Prealbumin 6 L Urine Color Urine Clarity Urine pH Ur Specific [place] Urine Protein Urine Glucose (UA) Urine Ketones Urine Occult Blood Urine Nitrate Urine Bilirubin Urine Urobilinogen Ur Leukocyte Esterase Urine RBC Urine WBC Urine WBC Clumps Ur Squamous Epith Cells Urine Bacteria Urine Mucus Micro UA Comment Urine Culture Comments Nasal Screen MRSA (PCR) Result Diagrams: 07/14/18 05:03 07/14/18 05:03 Microbiology: Microbiology 07/13/18 14:00 Influenza Types A,B Antigen - Final Nasal Wash Negative for FLU A and B antigen Infection due to influenza A or B cannot be ruled out since the antigen present in the sample may be below the detection limit of the test. 07/10/18 05:29 Aerobic Blood Culture - Preliminary Blood - Peripheral No growth in 3 days Anaerobic Blood Culture - Preliminary No growth in 3 days 07/10/18 05:25 Aerobic Blood Culture - Preliminary Blood - Peripheral No growth in 3 days Anaerobic Blood Culture - Preliminary No growth in 3 days 07/10/18 04:45 Urine Culture - Final Catheterized Urine Pseudomonas aeruginosa Imaging: Chest CTA 07/03/18 08:26 CONCLUSION: 1. No evidence of acute pulmonary emboli. 2. COPD 3. Minimal left lower lobe airspace disease characteristic of atelectasis 4. Hepatic steatosis 5. Otherwise stable evaluation. Chest X-Ray 07/13/18 08:49 CONCLUSION: 1. Severe diffuse bilateral infiltrates are noted consistent with severe pulmonary edema versus pneumonia. Clinical correlation is recommended. 2. Small bilateral pleural effusions. Procedures: 07/04/18-Panendoscopy 07/06/18-laparoscopic converted to open exploratory laparotomy with lysis of adhesions and gastrostomy tube insertion into gastric remnant. Patient/Family Conference Family Conference Location: Bedside, Telephone Issues Discussed: * Palliative care role, purpose, approach * Additional medical, psychosocial, and spiritual history * Patients general health, functional status, and cognitive changes in the months leading up to the current hospitalization * Patient/family understanding of the current medical problems * Patient/family understanding of prognosis * Patients goals of care as best understood from advance directives and/or conversations and/or values * Current medical treatment options and benefits/burdens of those options * Likely scenarios comparing ongoing aggressive care with a transition to comfort measures only * Questions answered to the best of my ability * Introduced hospice philosophy and benefits * Palliative care contact information provided Assessment and Plan - Symptom Scale (2) Dysphagia 0-10 Scale: Unable to quantify (3) Physical deconditioning 0-10 Scale: Unable to quantify Pertinent Non-Medical Issues: Psychosocial: Patient is originally from [place]. 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 Patient is . His significant other approximately a month ago. Patient has never had children. Patient recently lost his partner in May,, his sister in October, and his 2 cats 3 months ago. Spiritual: Patient was raised [employer]ism but has not been practicing. Legal: Patient has healthcare surrogate and living will was completed and signed on 08/26/2005. Ethical issues impacting care: None identified at this time. Important Contacts: HCS: James Head () Alternate [facility]: Hien [phone] Alternate [facility]: Adam [phone] . Prognosis: Mr. Head is a 68 years old male with a past medical history of atrial fibrillation, pulmonary embolism on Xarelto, hypertension, gastroesophageal reflux disease, anxiety, depression and a history of gastric bypass 6 years ago. Patient presented to the emergency room on 07/03/2018 with complaints of worsening substernal/nonradiating chest pain and increased difficulty swallowing 2 days prior to presenting to the emergency room. Clinical course complicated with dysphagia, malnutrition, dyspnea and physical deconditioning. Given multiple ongoing comorbidities and persistent dysphagia, patient remains at high risk for further complications, deterioration and decline. Code Status: No Code DNR Plan: PLAN: Legal decision maker: Patient is oriented to self, place and time with confusion to situation. Patient lacks insight regarding his medical condition. He is currently agitated and compounding his medical condition by pulling out PEG tube, refusing oxygen, and pulling out IV access. Currently patient is not capable to participate in making his own medical decisions. It is not known whether the patient will regain capacity to participate in medical decision. Patient has a living will, with the only surviving healthcare agent Tricia Medina opting out of decision making. He is , never had children, and his parents are . According to [place] statute his only other living sibling Heriberto Mishra would serve as his health care Proxy. Goals: Lengthy discussion with patient's brother Heriberto Aponte (HCP). Patient made himself a DNR area on in the morning prior to getting confused and agitated. CODE STATUS: No code DNR SYMPTOMS: * Dysphagia: Patient came in with complaints of having difficulty with swallowing. He also reported significant unintentional weight loss in the past few months. Cause of dysphagia is unknown and patient never had workup to find reason for dysphagia. Speech therapy has been following. PEG tube recently placed for nutrition and hydration. Per speech evaluation 07/14/18-recommended thin liquids for pleasure. Patient partially pulled out PEG tube. * Pain: Patient has chronic pain syndrome, history of multiple back surgeries. Roxicodone 5 mg p.o. every 3 hours prn available. Hydromorphone 1 mg every 3 hours prn available for breakthrough pain. Patient denies pain and does not appear to be in any pain at this time. No further recommendations. * Physical deconditioning: Progressive. Patient has multiple ongoing comorbidities and has lost unintentional significant amount of weight over a few months. Patient has had falls at home. He is reported to use cane or walker at home. Physical therapy consulted, recommended PT at rehab Palliative care will continue to follow the patient during hospital course as condition evolves, to assist patient/decision-maker with understanding of their medical conditions, weighing benefits/burdens of treatment options, for clarification of goals of treatment. Additionally will assist with any symptoms of palliative concern Appreciation Thank you for the opportunity to participate in the care of Brennon Head. Attestation Attestation: To help prompt me to consider important information that might be impacting today's encounter and assessment, information from prior notes written by myself or my colleagues may have been "brought forward" into today's note. My signature on this note, however, is an attestation that I personally performed the exam, history, and/or decision-making noted today, and, unless otherwise indicated, the interactions with patient, family, and staff as well as the review of records all occurred today. I also attest that the listed assessment and stated plan reflect my best clinical judgment today based on the combination of historical information, prior notes, and today's exam/ interactions. When time spent is documented, it refers only to time spent today by the signer, or if indicated, combined time spent today by collaborating physician/nurse practitioner.
--- NOTE | 2018-07-14 11:07 | P.PNGS ---
Subjective Interval history: Resting in bed Refusing supplemental oxygen this morning; pulse ox and has pulled out his IV He wants to go home or to [facility] Physical Exam Vital signs: Vital Signs 07/13/18 12:00 07/13/18 13:08 07/13/18 13:11 Temperature 98.2 F 98.2 F Pulse Rate 83 85 84 Respiratory Rate 23 18 19 Blood Pressure 105/70 Pulse Oximetry 100 99 98 07/13/18 13:15 07/13/18 13:20 07/13/18 13:35 Temperature Pulse Rate 88 84 88 Respiratory Rate 19 21 21 Blood Pressure 107/72 112/77 Pulse Oximetry 99 98 07/13/18 13:45 07/13/18 13:50 07/13/18 14:00 Temperature Pulse Rate 88 89 Respiratory Rate 18 19 Blood Pressure 109/75 Pulse Oximetry 95 92 L 91 L 07/13/18 14:05 07/13/18 14:20 07/13/18 14:35 Temperature Pulse Rate 89 86 86 Respiratory Rate 20 20 19 Blood Pressure 114/76 110/74 113/77 Pulse Oximetry 91 L 94 L 94 L 07/13/18 14:50 07/13/18 15:00 07/13/18 15:05 Temperature Pulse Rate 85 87 86 Respiratory Rate 19 20 20 Blood Pressure 116/80 113/76 Pulse Oximetry 95 96 96 07/13/18 15:20 07/13/18 15:35 07/13/18 15:50 Temperature Pulse Rate 88 91 H 85 Respiratory Rate 20 22 17 Blood Pressure 106/70 107/74 101/68 Pulse Oximetry 97 98 98 07/13/18 16:00 07/13/18 16:05 07/13/18 16:20 Temperature 98.4 F Pulse Rate 89 88 88 Respiratory Rate 19 20 23 Blood Pressure 105/72 109/76 Pulse Oximetry 97 98 92 L 07/13/18 16:35 07/13/18 16:50 07/13/18 16:55 Temperature Pulse Rate 82 82 84 Respiratory Rate 20 15 16 Blood Pressure 106/72 104/71 Pulse Oximetry 99 99 07/13/18 17:00 07/13/18 17:05 07/13/18 17:20 Temperature Pulse Rate 82 82 83 Respiratory Rate 14 14 15 Blood Pressure 98/69 L 96/66 L Pulse Oximetry 98 98 98 07/13/18 17:35 07/13/18 17:50 07/13/18 18:00 Temperature Pulse Rate 82 80 81 Respiratory Rate 13 13 12 Blood Pressure 94/66 L 92/64 L Pulse Oximetry 98 98 95 07/13/18 18:05 07/13/18 18:14 07/13/18 18:20 Temperature Pulse Rate 79 92 H 83 Respiratory Rate 13 22 19 Blood Pressure 95/67 L 97/69 L 98/67 L Pulse Oximetry 98 84 L 93 L 07/13/18 19:00 07/13/18 19:07 07/13/18 19:34 Temperature Pulse Rate 80 81 85 Respiratory Rate 17 18 22 Blood Pressure 96/66 L 96/61 L Pulse Oximetry 95 93 L 96 07/13/18 19:35 07/13/18 20:00 07/13/18 20:20 Temperature 97.4 F L Pulse Rate 85 84 81 Respiratory Rate 25 H 25 H 19 Blood Pressure 96/60 L 93/63 L 93/59 L Pulse Oximetry 97 98 99 07/13/18 21:00 07/13/18 21:35 07/13/18 22:00 Temperature Pulse Rate 79 78 78 Respiratory Rate 19 17 17 Blood Pressure 106/62 105/68 108/69 Pulse Oximetry 100 98 97 07/13/18 22:35 07/13/18 23:00 07/13/18 23:53 Temperature Pulse Rate 79 81 89 Respiratory Rate 17 18 16 Blood Pressure 108/71 112/74 Pulse Oximetry 96 96 07/14/18 00:00 07/14/18 01:00 07/14/18 01:35 Temperature 97.8 F Pulse Rate 94 H 80 78 Respiratory Rate 20 14 13 Blood Pressure 102/60 91/52 L 96/61 L Pulse Oximetry 96 97 97 07/14/18 02:00 07/14/18 03:00 07/14/18 03:44 Temperature Pulse Rate 77 89 90 Respiratory Rate 13 18 20 Blood Pressure 100/69 103/71 Pulse Oximetry 96 96 07/14/18 04:00 07/14/18 05:00 07/14/18 06:00 Temperature 97.6 F Pulse Rate 90 91 H 100 H Respiratory Rate 18 21 25 H Blood Pressure 111/74 109/69 109/71 Pulse Oximetry 94 L 93 L 07/14/18 06:48 Temperature Pulse Rate Respiratory Rate Blood Pressure Pulse Oximetry 92 L Intake & Output 07/13/18 07/14/18 07/14/18 18:59 06:59 18:59 Intake Total 943 / 943 750 / 750 Output Total 1400 / 1400 350 / 350 Balance -457 / -457 400 / 400 Weight 77 kg Intake: IV 450 / 450 50 / 50 Azithromycin Inj 500 MG In NS 250 / 250 Inj 250 ML @ 250 mls/hr IV.SIG Q24H KAMRAN Rx#:[id number] Zosyn 3.375 GM Premix 3.375 gm 100 / 100 50 / 50 In 50 ml @ 100 mls/hr IV.SIG Q6H KAMRAN Rx#:[id number] Rocephin Inj 1,000 MG In NS Inj 100 / 100 100 ML @ 200 mls/hr IV.SIG Q24H KAMRAN Rx#:[id number] Tube Feeding 373 / 373 640 / 640 Tube Irrigant 120 / 120 Water Bolus Amount 60 / 60 Output: Urine 1400 / 1400 350 / 350 Other: Date of Last Bowel Movement 07/13/18 # Bowel Movements 1 1 Narrative: Alert and awake Resp: CTAB Abd: soft; flat; RUQ dressing changed; corina in place. G tube with TF - Urinary Catheter Management Indwelling Urethral Catheter Cath placed during this visit: yes, but has since been removed by the nurse Urethral indwelling: No Reason for continuing: Chronic Urinary Retention Insertion date: 07/06/18 Removal date: 07/11/18 Removal time: 12:25 Results - Labs 07/14/18 05:03 07/14/18 05:03 Laboratory Results - last 24 hr 07/13/18 07/13/18 07/13/18 12:15 14:00 16:13 WBC RBC Hgb Hct MCV MCH MCHC RDW Plt Count MPV Neut % (Auto) Lymph % (Auto) [place] % (Auto) Eos % (Auto) Baso % (Auto) Neut # (Auto) Lymph # (Auto) [place] # (Auto) Eos # (Auto) Baso # (Auto) WBC Differential Differential Comment Sodium Potassium Chloride Carbon Dioxide Anion Gap BUN Creatinine Estimated GFR Random Glucose Lactic Acid 1.9 Calcium Calcium Adj for Albumin Phosphorus Magnesium Total Bilirubin AST ALT Alkaline Phosphatase Troponin I 0.02 Total Protein Albumin Prealbumin Nasal Screen MRSA (PCR) Not detected 07/13/18 07/14/18 07/14/18 21:06 05:03 05:03 WBC 5.1 RBC 2.28 L Hgb 7.5 L Hct 21.9 L MCV 95.9 MCH 33.1 MCHC 34.5 RDW 16.1 Plt Count 198 MPV 8.9 Neut % (Auto) 92.5 H Lymph % (Auto) 4.8 L [place] % (Auto) 2.6 Eos % (Auto) 0.0 Baso % (Auto) 0.1 Neut # (Auto) 4.8 Lymph # (Auto) 0.2 L [place] # (Auto) 0.1 Eos # (Auto) 0.0 Baso # (Auto) 0.0 WBC Differential . Differential Comment Auto diff final Sodium 145 Potassium 3.5 Chloride 105 Carbon Dioxide 32.9 H Anion Gap 7 BUN 26 H Creatinine 0.70 Estimated GFR Greater than 89 Random Glucose 155 H Lactic Acid Calcium 7.0 L* Calcium Adj for Albumin 9.2 Phosphorus 0.4 L Magnesium 1.8 Total Bilirubin 0.3 AST 12 L ALT 13 Alkaline Phosphatase 85 Troponin I 0.02 Total Protein 4.8 L Albumin 1.2 L Prealbumin 6 L Nasal Screen MRSA (PCR) - Imaging Imaging: ITS Impressions Chest CTA 07/03/18 08:26 CONCLUSION: 1. No evidence of acute pulmonary emboli. 2. COPD 3. Minimal left lower lobe airspace disease characteristic of atelectasis 4. Hepatic steatosis 5. Otherwise stable evaluation. Chest X-Ray 07/13/18 08:49 CONCLUSION: 1. Severe diffuse bilateral infiltrates are noted consistent with severe pulmonary edema versus pneumonia. Clinical correlation is recommended. 2. Small bilateral pleural effusions. Assessment and Plan - Assessment (1) Unintentional weight loss Code(s): R63.4 - Abnormal weight loss Status: Acute Plan: 68 year old male with dysphagia; weight loss; in need to enteral feeding access -s/p G tube placement -Patient has expressed that he would like to be a DNR. I have changed his code status per the patient's request. He is able to answer questions to confirm that he is A/O. He is able to expresses his wishes. He would like to go home or to [facility]. I explained the role of the Palliative Care Team ---that they can help us get home vs [facility] vs [facility]. He does not want to "talk to anyone else." He is okay with myself talking to the Palliative Care [facility] to help him. I have consulted them. -I have updated his brother ED [phone] in [place] ---He explained that Brennon has not been doing so well lately. He agrees with the plan. I told him that myself or the Palliative Care [facility] will be in contact with him this afternoon. -I have been in contact with Dr. Franks, Dr. Hollis and Marce WHITNEY As above; his wound is stable and not an issue. My [facility] has been coordinating care for palliative service. Will assist as needed. The exam, history, and the medical decision-making described in the above note were completed with the assistance of the mid-level provider. I reviewed and agree with the findings presented. I attest that I had a [id number] encounter with the patient on the same day, and personally performed and documented my assessment and findings in the medical record.
--- NOTE | 2018-07-14 11:18 | P.PNIM ---
Subjective Interval history: Mr. Head is clinically improved, has his oxygen off, he is more energetic however his fever has returned to a poor attitude with the staff. He lost his IV and is refusing reinsertion. He is refusing pulse ox monitoring, refusing oxygen despite a spot check down to 80% SPO2. He has expressed an interest in doing a more and signed a DNR today. Physical Exam Vital signs: Last Vital Signs Temp 97.6 F 07/14/18 05:00 Pulse 100 H 07/14/18 06:00 Resp 25 H 07/14/18 06:00 BP 109/71 07/14/18 06:00 Pulse Ox 92 L 07/14/18 06:48 Intake & Output 07/12/18 07/13/18 07/14/18 07/15/18 06:59 06:59 06:59 06:59 Intake Total 740 / 740 714 / 714 1693 / 1693 Output Total 2625 / 2625 600 / 600 1750 / 1750 Balance -1885 / -1885 114 / 114 -57 / -57 Weight 78 kg 78 kg 77 kg Narrative: GENERAL: AAOx3, thin, appears comfortable today SKIN: Warm and dry. No rashes HEAD: Atruamtic, normocephalic. EYES: No scleral icterus. No injection or drainage. ENT: Moist mucous membranes, patent nares, no erythema of oropharynx. NECK: Supple, trachea midline. No JVD or lymphadenopathy. Normal thyroid. CARDIOVASCULAR: Sinus tachycardia. No murmurs, gallops, or rubs. RESPIRATORY: Fine crackles throughout and diminished bases, but overall much improved compared to yesterday. No accessory muscle use. GASTROINTESTINAL: Abdomen soft, non-tender, nondistended, normal active bowel sounds, G-tube in place MUSCULOSKELETAL: No cyanosis, 2+ edema of bilateral feet, 1+ to mid-mix NEURO: CN II-XII grossly intact, no focal deficits, no slurring of speech Urinary Catheter Management Indwelling Urethral Catheter: Cath placed during this visit: yes, but has since been removed by the nurse Urethral indwelling: No Insertion date: 07/06/18 Removal date: 07/11/18 Removal time: 12:25 Results Labs CBC & Chem 7: 07/14/18 05:03 07/14/18 05:03 Labs: Microbiology 07/13/18 12:21 Blood - Peripheral Aerobic Blood Culture - Preliminary No growth in 1 day 07/13/18 12:21 Blood - Peripheral Anaerobic Blood Culture - Preliminary No growth in 1 day 07/13/18 12:15 Blood - Peripheral Aerobic Blood Culture - Preliminary No growth in 1 day 07/13/18 12:15 Blood - Peripheral Anaerobic Blood Culture - Preliminary No growth in 1 day 07/10/18 05:29 Blood - Peripheral Aerobic Blood Culture - Preliminary No growth in 4 days 07/10/18 05:29 Blood - Peripheral Anaerobic Blood Culture - Preliminary No growth in 4 days 07/10/18 05:25 Blood - Peripheral Aerobic Blood Culture - Preliminary No growth in 4 days 07/10/18 05:25 Blood - Peripheral Anaerobic Blood Culture - Preliminary No growth in 4 days 07/13/18 14:00 Nasal Wash Influenza Types A,B Antigen - Final Negative for FLU A and B antigen Infection due to influenza A or B cannot be ruled out since the antigen present in the sample may be below the detection limit of the test. Procedures Procedures: G-tube placed on 07/06/18 Assessment and Plan (1) Unintentional weight loss: Code(s): R63.4 - Abnormal weight loss Status: Acute Plan 68 years old male with past medical history of hypertension, PE, GERD, COPD presents to the emergency room with difficulty swallowing for 3 days, generalized weakness and back pain. Chest pain Symptomatically resolved Troponins remain normal, EKG remained unchanged Dyspnea, hypotension Improved aeration of bilateral lungs today It seems and angulation of the bed plus ongoing diuretics have to improve his lungs Continue with positional support and diuresis Appreciate air conditioning mechanic consult Failure to thrive Patient has expressed disinterest in any further treatments today Palliative care is consulted Patient elected for DNR status today Dysphagia w/ odynophagia s/p EGD by GI, results were normal G-tube placement by general surgery 07/06/2018 Continue with G-tube feeds, postop care Continue proton pump inhibitor Appreciate general surgery Anemia Hemoglobin trended downward to 7.5 2 days ago but looks stable at 8.5 today Follow with daily CBC Generalized weakness Likely from caloric malnutrition due to inability to swallow secondary to odynophagia and dysphagia Patient has history of gastric bypass Continue with G-tube feeds Appreciate nutrition and speech therapy following Severe protein calorie malnutrition with significant weight loss Air bed ordered today for skin protection Continue Megace Atrial fibrillation Heart rate previously in the 120 range, responded to metoprolol 25 mg every 8 hours Continuing Lovenox Recent history of PE In February 2018, patient was diagnosed with small PE Continue Lovenox Chronic pain syndrome multiple back surgery history Continue home dose of [place] DVT prophylaxis Lovenox Discharge planning Patient will likely need rehab placement Progress Note: Quality VTE Deep Vein Thrombosis/Pulmonary Embolism Present on Admission: No
[2018-07-14] MEDS: Azithromycin Inj 500 MG in Sodium Chlor 0.9% Inj 250 ML IV.SIG SCH (15:37)
[2018-07-14] MEDS: Pantoprazole Inj 40 MG Vial IV.PUSH SCH (15:37)
--- NOTE | 2018-07-14 17:51 | P.DS ---
DS: Providers Date of admission: 07/06/18 10:44 Primary care physician: Heriberto Gan MD Consults: 07/03/18 14:14 Consult to Gastroenterology Routine Consulting Provider: Willow Mckee Reason for Consultation: dysphagia Notified:: Service Spoke with:: JACLYN Date Notified:: 07/03/18 Time Notified:: 14:51 Ordering Provider: CARLEE 07/03/18 18:32 Consult to Gastroenterology Routine Consulting Provider: Alo Dietz Preferred Human Resources Operations Manager:: Otto Martins Patient known to:: Otto Martins Reason for Consultation: dysphagia Notified:: Service Spoke with:: Willie Date Notified:: 07/03/18 Time Notified:: 18:35 Ordering Provider: ISAÍAS 07/04/18 10:54 HUB Only Consult Order Routine Consulting Provider: Paris Toledo 07/04/18 21:05 Consult to General Surgery Routine Consulting Provider: Caleb Henriquez Preferred Human Resources Operations Manager:: Caleb Henriquez Reason for Consultation: CONSULT DR. HENRIQUEZ RE: FEEDING JEJUNOSTOMY Notified:: Service Spoke with:: yue Date Notified:: 07/04/18 Time Notified:: 21:54 Ordering Provider: SHANNON 07/05/18 11:49 HUB Only Consult Order Routine Consulting Provider: Paris Toledo 07/06/18 11:06 HUB Only Consult Order Routine Consulting Provider: Paris Toledo 07/08/18 16:03 HUB Only Consult Order Routine Consulting Provider: Branden Moore,Agency 07/11/18 10:39 HUB Only Consult Order Routine Consulting Provider: Willi Washington 07/11/18 11:46 HUB Only Consult Order Routine Consulting Provider: Wing Haley,Agency 07/13/18 09:41 Consult to Warehouse Picker Stat Consulting Provider: Sabina Hollis For STAT consult, spoke directly to:: Chino Preferred Human Resources Operations Manager:: Sabina Hollis Reason for Consultation: Resp distress; already discussed with her Notified:: Service Spoke with:: Jose Luis Date Notified:: 07/13/18 Time Notified:: 09:58 Ordering Provider: NAPOLEON 07/14/18 10:03 Consult to Palliative Care Routine Consulting Provider: Jasmeet Prescott Reason for Consultation: Call Tahmina [phone] before seeing patient and for complete story Patient is s/p G tube placement; FTT; wants to go home or to [facility] Notified:: Service Spoke with:: derick Date Notified:: 07/14/18 Time Notified:: 10:09 Ordering Provider: NAPOLEON Brief History from admission: 68-year-old white male presents with complaints of difficulty swallowing for 3 days. He states today he has had chest pain, generalized weakness, pain radiating to his back and into his neck, feeling like he is choking, feeling like he cannot swallow and that something is stuck in his throat. He has been having chronic nausea no palpitations no dizziness no diarrhea, he states he is lost 30 pounds in the past 4-5 months but the significant difficulty with swallowing has been only for the past couple of days. He denies fever, has felt extremely cold and chills, and has had worsening lower extremity edema lately. Patient denies cardiac history stroke or cancer history. PMhx: Hypertension, pulmonary embolism diagnosed 1 month ago started on Xarelto , GERD, COPD PSXhx: 5 back surgeries, gastric bypass 6 years ago for weight loss, total knee arthroplasty, cholecystectomy, SOChx: Denies tobacco quit over 10 years ago denies alcohol use, lives at home alone since recent of significant other June 08. FAMhx: Mother had cancer unknown type, father had coronary artery disease DS: Summary Patient s/p g tube placement, failure to thrive. pulmonary edema following transfusion. Patient had discussing with family member in case management and has decided that he wants them for their care at our hospital. he requested a consult with hospice and has decided to go into their hospice care center. I have been notified by the floor who is requesting hospice discharge. discharge has been placed, Furthe further orders per hospice attending. Time Spent with Patient Total time spent providing and/or coordinating discharge services: Less than 30 minutes Quality: VTE Deep Vein Thrombosis/Pulmonary Embolism Present on Admission: No Results Procedures completed during hospitalization: G-tube placed on 07/06/18 Labs on day of discharge: Labs from last 24 hours 07/14/18 07/14/18 07/13/18 05:03 05:03 21:06 WBC 5.1 RBC 2.28 L Hgb 7.5 L Hct 21.9 L MCV 95.9 MCH 33.1 MCHC 34.5 RDW 16.1 Plt Count 198 MPV 8.9 Neut % (Auto) 92.5 H Lymph % (Auto) 4.8 L [place] % (Auto) 2.6 Eos % (Auto) 0.0 Baso % (Auto) 0.1 Neut # (Auto) 4.8 Lymph # (Auto) 0.2 L [place] # (Auto) 0.1 Eos # (Auto) 0.0 Baso # (Auto) 0.0 WBC Differential . Differential Comment Auto diff final Sodium 145 Potassium 3.5 Chloride 105 Carbon Dioxide 32.9 H Anion Gap 7 BUN 26 H Creatinine 0.70 Estimated GFR Greater than 89 Random Glucose 155 H Calcium 7.0 L* Calcium Adj for Albumin 9.2 Phosphorus 0.4 L Magnesium 1.8 Total Bilirubin 0.3 AST 12 L ALT 13 Alkaline Phosphatase 85 Troponin I 0.02 Total Protein 4.8 L Albumin 1.2 L Prealbumin 6 L Preliminary micro results at discharge 07/13/18 12:21 Aerobic Blood Culture - Preliminary Blood - Peripheral No growth in 1 day Anaerobic Blood Culture - Preliminary No growth in 1 day 07/13/18 12:15 Aerobic Blood Culture - Preliminary Blood - Peripheral No growth in 1 day Anaerobic Blood Culture - Preliminary No growth in 1 day 07/10/18 05:29 Aerobic Blood Culture - Preliminary Blood - Peripheral No growth in 4 days Anaerobic Blood Culture - Preliminary No growth in 4 days 07/10/18 05:25 Aerobic Blood Culture - Preliminary Blood - Peripheral No growth in 4 days Anaerobic Blood Culture - Preliminary No growth in 4 days Impressions ITS Impressions Chest CTA 07/03/18 08:26 CONCLUSION: 1. No evidence of acute pulmonary emboli. 2. COPD 3. Minimal left lower lobe airspace disease characteristic of atelectasis 4. Hepatic steatosis 5. Otherwise stable evaluation. Chest X-Ray 07/13/18 08:49 CONCLUSION: 1. Severe diffuse bilateral infiltrates are noted consistent with severe pulmonary edema versus pneumonia. Clinical correlation is recommended. 2. Small bilateral pleural effusions. Discharge Plan Discharge Disposition Patient Disposition: 51 Hospice/Med Facility Discharge Condition Condition: Stable Discharge Order Discharge Orders: Discharge Order (Routine); Ordered 07/14/18 Ordered By: Ger Franks Discharge Details Anticipated Discharge Date: 07/14/18 Physicians Team Primary Care Provider: Heriberto Gan Attending Provider: Ger Franks Other Providers: Willow Mckee ; Alo Dietz ; Paris Toledo ; Caleb Henriquez [facility] ; [facility] ; [facility] ; Sabina Hollis ; Jasmeet Prescott Rxs /Orders / Referrals /Forms Prescriptions: Continue Dulzura 10 - 325 tab PO TID PRN (Reason: Pain) RF: 0 losartan 25 mg Tablet 25 mg PO DAILY RF: 0 lorazepam 1 mg Tablet 1 mg PO BID RF: 0 zolpidem 10 mg Tablet 10 mg PO HS RF: 0 metoprolol tartrate 25 mg Tablet 25 mg PO BID RF: 0 fluoxetine [Prozac] 40 mg Capsule 40 mg PO DAILY RF: 0 rivaroxaban [Xarelto] 20 mg Tablet 20 mg PO DAILY RF: 0 Discontinued omeprazole 40 mg Capsule,Delayed Release(Dr/Ec) 40 mg PO DAILY RF: 0 mirtazapine 30 mg Tablet 30 mg PO HS RF: 0 Referrals: Heriberto Gan MD [Primary Care Provider] - See Instructions Discharge Instructions Patient Printed Instructions: Chest Pain (ED) Discharge Interventions Interventions: Discharge Planning - Case Management Last Done: 07/14/18 15:49 Status ED Status: Left Department
== END 2018-07-14 19:13 | disposition hospice, inpatient (51) ==
LOC: PHED 08:05 → PHEDA 08:05 → PH3 12:15 → N05 07-05 20:58 → N03 07-06 23:35 → N07 07-08 12:58 → N03 07-13 10:23
PROVIDERS: ADMIT Family Medicine; ATTEND Family Medicine
PROC: PANENDO (2018-07-04 19:05)